=== PATIENT | male | born 1945 | race African-American/Black ===

== ENCOUNTER 2016-09-12 13:49 | Inpatient (IN) | payer OTHER ==
--- NOTE | ~2016-09-12 | CR236 ---
[facility] A Service of [facility] RADIOLOGY TEXT RESULTS PATIENT: BRUCE CHAVEZ LOCATION: [facility] 566-01 : 43 UNIT #: [id number] AGE: [address]: Swathi Rodriguez MD SEX: M ORDER DR: [id number] [facility] [address] [facility]. [place], [place] [address] [id number] I MR#: [id number] #: [id number] NAME: BRUCE CHAVEZ : 1945 SEX: M STUDY DATE/TIME: 09/17/2016 8:49 UNIT: [facility] ROOM: [facility] STUDY DESCRIPTION: CR Small Bowel Sbft W Films Attending Physician: Swathi Rodriguez M.D. Ordering Physician: Raymundo Hernandez M.D. Primary Care Physician: Primary Care Physician No MEDICAL IMAGING REPORT This report is preliminary unless electronic signature is present EXAM Small bowel follow-through with barium. INDICATIONS 71-year-old male with history of abdominal distension, Crohn disease, small bowel obstruction, abdominal pain and anemia. Symptoms since September 12. The fluoro time is zero. 9 flat radiographic images were submitted. Study is correlated with CT of the abdomen and pelvis from 09/12/2016. FINDINGS Tuber Operator radiograph performed demonstrating persistent residual contrast within the rectum and lower sigmoid. There are some mildly dilated loops of small bowel noted, mainly within the right side of the abdomen, and there is also a more dilated loop of small bowel within the mid portion of the abdomen. However, there is no evidence of a small bowel obstruction. By 5.5 hours, much of the contrast has entered into the colon. There is some residual barium still within the small bowel at this time. IMPRESSION 1. There is no evidence of small bowel obstruction. 2. There are some dilated small bowel loops within the right side of the abdomen and within the mid abdomen. Dictated by... Juan Chacon M.D. THIS IS AN ELECTRONICALLY VERIFIED REPORT Juan Chacon M.D. at 09/18/2016 4:43 PM [facility] A Service of [facility] & [facility] RADIOLOGY TEXT RESULTS PATIENT: BRUCE CHAVEZ LOCATION: [facility] 566-01 : 43 UNIT #: [id number] AGE: [address]: Swathi Rodriguez MD SEX: M ORDER DR: Fortunato TD: 09/17/2016 20:19 JOB #: [id number] MEDICAL IMAGING REPORT COPY
--- NOTE | ~2016-09-12 | CO ---
Unit #: [id number] #: [id number] Patient: BRUCE CHAVEZ [id number] [facility]. [place], [place] [address] [id number] I MR#: [id number] NAME: BRUCE CHAVEZ ROOM: 566 Age: 71 Sex: M Admission Date: 09/12/2016 : 1945 Attending Physician: John Heath M.D. Primary Care Physician: [id number] CONSULTATION REPORT REASON FOR CONSULTATION Preoperative evaluation. HISTORY OF PRESENT ILLNESS This is a 71-year-old male who has a history of Crohn disease and was admitted to this facility in May of 2016 and underwent exploratory laparotomy for a small bowel obstruction. He says he has been doing well up until 3-4 weeks ago when he developed abdominal pain. He has been unable to eat. He has also noted pain in his right lower extremity. His right foot and toes begin to turn "black." They thought initially it was because of tight shoes, and he was told to soak his extremities. He then noted that the pain worsened, and his right lower extremity up to his knee became black. He came to the emergency room for evaluation where he was found to have ischemic gangrene to his right lower extremity. CTA of his abdomen and pelvis shows findings consistent with a small bowel obstruction. He also has extensive atherosclerotic involvement of the abdominal aorta. The left common iliac artery is occluded, as well as the previously placed stent to the right superficial femoral artery. He most likely needs surgical intervention. From a cardiac standpoint the patient has no symptoms of angina. He has been unable to walk because of right foot pain for the past 3 weeks. He previously ambulated with a walker and had no symptoms. However, when exercised with physical therapy twice a week, he does complain of shortness of breath. He denies paroxysmal nocturnal dyspnea, orthopnea or leg edema. No dizziness, syncope or near syncope. He gives a history of a myocardial infarction approximately 3-4 years ago at [facility] and underwent testing. He was unsure whether he had a cardiac catheterization or stress test. His risk factors for ischemic heart disease include hypertension, family history of heart disease and nicotine abuse. The patient is on amiodarone at home and gives a history of being on anticoagulation in the past. There are no details available. There are no electrocardiograms at this facility for comparison. PAST MEDICAL HISTORY 1. Questionable myocardial infarction at [facility] 3-4 years ago; no details available. 2. Hypertension. 3. Peripheral vascular disease with history of right superficial femoral artery stent. 4. Spider bite to the right lower extremity status post multiple skin grafts. 5. Crohn disease. 6. Active smoker. Unit #: [id number] #: [id number] Patient: BRUCE CHAVEZ PAST SURGICAL HISTORY 1. Recent exploratory laparotomy. 2. Right leg surgery with multiple skin grafts secondary to recluse spider bite. 3. PEG tube placement that was later removed. SOCIAL HISTORY The patient lives with his sister, who is disabled. He has a nephew who assists him with her care. He ambulates when he can with a walker. He smokes 1-2 cigarettes a day. He denies illicit drug or alcohol use. FAMILY HISTORY Mother possibly had coronary artery disease. She had vascular disease requiring bilateral amputations. Has a sister who has heart problems. ALLERGIES Aspirin (stomach discomfort). HOME MEDICATIONS 1. Protonix 40 mg daily. 2. Norvasc 5 mg daily. 3. Amiodarone 200 mg b.i.d. 4. Imdur 60 mg daily. REVIEW OF SYSTEMS CONSTITUTIONAL: Negative for fever or chills. Reports weakness. HEENT: No headache, hearing or visual changes or difficulty with swallowing. No dizziness. CARDIOVASCULAR: Has no symptoms of angina. Denies palpitations. No paroxysmal nocturnal dyspnea or orthopnea. Denies syncope or near syncope. RESPIRATORY: Has dyspnea on exertion. No cough or hemoptysis. GASTROINTESTINAL: Positive for abdominal pain and some nausea. Denies hematochezia, hematemesis or melena. No bowel movement since Saturday. EXTREMITIES: Positive for right lower extremity pain. PHYSICAL EXAMINATION VITAL SIGNS: Blood pressure 115/55, heart rate 69, temperature 98.3. BMI 14. GENERAL: This is a 71-year-old, very thin, frail male who is in no acute distress. NEUROLOGIC: He is awake, alert and oriented. There are no focal weaknesses. NECK: Trachea is midline. No thyromegaly or lymphadenopathy. No jugular venous distention. HEART: S1, S2 with an S3 gallop or split S2. No rubs or clicks. There is a systolic murmur heard best along the left sternal border. Regular rate and rhythm. LUNGS: Clear to auscultation without rales, rhonchi or wheezes. ABDOMEN: Slightly distended, firm with very diminished bowel sounds. Tender with palpation. EXTREMITIES: With absence pedal pulses. SKIN: Noted for necrotic toes and necrosis up to his knees. DIAGNOSTIC STUDIES LABORATORY STUDIES: White count 11.1, hemoglobin 12.5, hematocrit 38.9, platelet count 350. Sodium 139, potassium 4.6, BUN 28, creatinine 1.2, glucose 124, magnesium 2.8. Unit #: [id number] #: [id number] Patient: BRUCE CHAVEZ IMAGING: CTA of the abdomen and pelvis shows extensive atherosclerotic involvement of the abdominal aorta. With some disease seen in the superior mesenteric artery without stenosis. There is involvement of both the right and left renal arteries. Extensive ulcerated plaque in the infrarenal abdominal aorta. The right superficial femoral artery stent is occluded. The left common iliac artery is occluded. CARDIOVASCULAR STUDIES: Electrocardiogram - Normal sinus rhythm with a rate of 71 beats per minute with left axis deviation. Old inferior infarct with Q waves noted in the inferior leads. There is poor R wave progression V1-V3. Left ventricular hypertrophy. IMPRESSION 1. Abdominal pain with possible small bowel obstruction. 2. 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 3. Possible old inferior wall myocardial infarction. 4. COPD. 5. Crohn disease of the colon. 6. Hypertension. 7. History of right superficial femoral artery stent. PLAN 1. Cardiology was consulted for preoperative evaluation. Because of the patient's extensive vascular disease, he will need a cardiac catheterization to determine his coronary anatomy prior to peripheral vascular surgery. This has been discussed with the patient, and he is agreeable. Also discussed with his sister and son via phone. 2. Will start the patient on IV fluids. 3. The patient will need statin. Was started on high-intensity statin. Lipid profile will be obtained. 4. Obtain two-D echocardiogram to evaluate left ventricular systolic function and for valvular heart disease. 5. Obtain records from [facility] if possible. Will follow the patient with you. Thank you for allowing us to assist with this patient's care. Dictated by... Rony Stover A.P.R.N. for Sid Moon M.D. CHUNG/dickson TD: 09/14/2016 07:43 JOB #: [id number] CONSULTATION REPORT X Rony Stover APRN CONSULTATION REPORT
--- NOTE | ~2016-09-12 | CR12 ---
[facility] A Service of [facility] & [facility] RADIOLOGY TEXT RESULTS PATIENT: BRUCE CHAVEZ LOCATION: [facility] 549-01 : 43 UNIT #: [id number] AGE: [address]: Swathi Rodriguez MD SEX: M ORDER DR: [id number] [place], [place] [address] [id number] I MR#: [id number] Acc #: [id number] NAME: BRUCE CHAVEZ : 1945 SEX: M STUDY DATE/TIME: 09/18/2016 13:55 UNIT: [facility] ROOM: [facility] STUDY DESCRIPTION: CR Angio Extrem Uni SI Attending Physician: Swathi Rodriguez M.D. Ordering Physician: Tim Flores M.D. Primary Care Physician: Primary Care Physician No MEDICAL IMAGING REPORT This report is preliminary unless electronic signature is present EXAM CR angio extremity uni SI INDICATION Peripheral vascular disease FINDINGS Multiple images from a lower extremity angiogram were submitted for review. Please refer to the vascular surgery report for details of patient's vascular disease. Fluoroscopic time 46 seconds. Dictated by... Alli Pérez M.D. THIS IS AN ELECTRONICALLY VERIFIED REPORT Alli Pérez M.D. at 09/19/2016 12:13 PM Juni TD: 09/19/2016 09:07 JOB #: [id number] MEDICAL IMAGING REPORT COPY
--- NOTE | ~2016-09-12 | HP ---
Unit #: [id number] #: [id number] Patient: BRUCE CHAVEZ [id number] [place], [place] [address] [id number] MR#: [id number] NAME: BRUCE CHAVEZ ROOM: Age: 71 Sex: M Admission Date: 09/12/2016 : 1945 Attending Physician: Rosendo Fan M.D. Primary Care Physician: No Primary Care Physician HISTORY AND PHYSICAL CHIEF COMPLAINT Right foot pain and abdominal pain. HISTORY OF PRESENT ILLNESS The patient is a 71-year-old, pleasant -[place] male with a history of a Crohn disease and recurrent small bowel obstruction and status post exploratory laparotomy, segmental small bowel resection in May of 2016, presented to the emergency room complaining of the abdominal pain. The patient stated the patient has been having abdominal pain for the three days associated with the nausea and vomiting. The patient's last bowel movement was two days ago. The patient is well known to the service and had the repeat CT scan that showed the patient had a small bowel obstruction in the ileum and with the same transition point concerning for the stricture. The patient also complains of the right foot pain that has been going on for the last one month. The patient stated the patient was walking a month ago and noted the toes turned black and he is unable to walk on the leg because of the pain. The patient had a CT angiogram that showed a critical stenosis of the iliofemoral vein and patient has been started on the heparin. The vascular and LSA consult has been called by the ER physician and spoke to Dr. Rubi and Dr. Flores to follow up the patient. The patient denies any fever, chills. The patient is being admitted for the above reasons. PAST MEDICAL HISTORY History of coronary disease, myocardial ischemia, hypertension and history of severe dysphagia and poor oral intake, status post PEG tube and then later removal. PAST SURGICAL HISTORY PEG tube placement, right leg surgery and the exploratory laparotomy and the small bowel resection. SOCIAL HISTORY He smokes one cigarette per day and no alcohol or any illicit drug abuse. FAMILY HISTORY Positive for hypertension. ALLERGIES Aspirin. HOME MEDICATIONS He takes amiodarone, metoprolol, [place] and amlodipine. Unit #: [id number] #: [id number] Patient: BRUCE CHAVEZ REVIEW OF SYMPTOMS Fourteen-point review of symptoms performed and only pertinent positive findings are described above, remaining are negative. PHYSICAL EXAMINATION GENERAL APPEARANCE: On examination the patient is lying on a bed not in acute distress. VITAL SIGNS: Temperature 96.9, pulse 80, respiratory rate 16, blood pressure 139/72, sating 98% at room air. HEENT: Head atraumatic, normocephalic. Pupils equal, round and reacting to light and accommodation. Extraocular movements are intact. NECK: Supple. No JVD. LUNGS: Clear to auscultation bilaterally. No rhonchi. No wheezing. HEART: Regular rate and rhythm. ABDOMEN: Soft, positive for the hypertympanic bowel sound and tenderness in the right lower and left lower quadrant. EXTREMITIES: Patient had a chronic venous stasis and dry gangrene of the right foot toes with ischemia. NEUROLOGIC: Awake, alert and oriented. No gross focal motor deficit. DIAGNOSTIC STUDIES LABORATORY DATA: Glucose 103, BUN 29, creatinine 1.1, sodium 144, potassium 4.4, chloride 108, bicarbonate 26, calcium 9.1, phosphorus 2.5, magnesium 2, AST 36, ALT 30, alkaline phosphatase 71, amylase 14, lipase 10, INR is 1.1, WBC 11. 2, hemoglobin 13.6, hematocrit 41.9, platelets 396, neutrophils 82.5 and UA shows trace leukocyte esterase. IMAGING: CT of the abdomen and pelvis with angiogram shows the small bowel obstruction at the same transition point and the critical stenosis of the iliofemoral artery. ASSESSMENT 1. The recurrent small bowel obstruction. 2. Dry gangrenous toes. 3. Peripheral arterial disease with the stenosis. 4. Right foot ischemia. PLAN 1. Plan is to admit the patient to the inpatient with the telemetry, 2. Patient has been already consulted with LSA for bowel rest, IV fluids and pain medications and vascular consult has been placed for the critical stenosis and right foot ischemia. 3. Continue with the heparin drip and supportive care. 4. Repeat the CBC, BMP in the morning. 5. Further recommendations will follow. Dictated by Kevin Lagunas/edwardo TD: 09/12/2016 19:24 JOB #: [id number] Unit #: [id number] #: [id number] Patient: BRUCE CHAVEZ HISTORY AND PHYSICAL X X HISTORY AND PHYSICAL
--- NOTE | ~2016-09-12 | FU ---
[facility] Nutrition Therapy DATE: 09/20/16 Patient: BRUCE SCOTT Physician: SEBASTIAN Address: [address] [place] [address] STREET Room/Bed: [address] [place] [address], Zip: [place] [address] Admit Date: 09/12/16 Date of : 43 Height: 6 0 Weight: 140 63.9 NUTRITION MONITORING/FOLLOW-UP: Reason: Nutrition follow up Anthropometrics: Adm wt: 54.5 kg Wt 09/20: 63.9 kg Please note the source of today's weight is not noted, and is likely inaccurate based on RD observation of the pt, and based on his admission weight Labs: Gluc 139 Ca++ 7.9 Alb 2.4 Meds: Miralax, coumadin, protonix, solu-medrol, colace, KCl, lipitor, lopressor, zofran I&O's: 2686/1080, last BM 09/17 (per pt report) Skin: Reviewed. No changes noted. Edema: RLE 1+ Diet: Regular Assessment: Chart reviewed, events noted. RD spoke with the pt at bedside. Pt reports improvement in appetite, and states that he typically consumes all of his meals. RD observed the pt's lunch tray, which he did consume 100% of. Pt requested Ensure supplements, as he received these one time previously. RD will order Ensure TID. Pt also reports that his last BM was Saturday (09/17) despite bowel regimen. Pt had KUB today, awaiting results. SBO improved/ resolving per MD note. RD encouraged continued adequate protein-calorie intake with Ensure TID. Pt denied having any nutrition- related questions at this time. Nutrition diagnosis remains active with some improvement. Dx: Severe PCM RT chronic illness AEB <50% energy intake for > 1 month, suspected 20% weight loss in ~ 6 months, underweight status- ACTIVE Intervention: 1. Regular diet 2. Ensure TID Monitoring, Evaluation and Goals: GOALS IN PROGRESS 1. Oral intake; tolerate >50-75% meals and supplements 2. Gradual weight gain towards healthy BMI range 3. Promote regular bowel movements [facility] Nutrition Therapy DATE: 09/20/16 Patient: BRUCE CHAVEZ Physician: SEBASTIAN Address: [address] [place] [address] STREET Room/Bed: [address] [place] [address] State, Zip: [place] [address] Admit Date: 09/12/16 Date of : 43 Height: 6 0 Weight: 140 63.9 4. Skin; promote healing, prevent breakdown Recommendations: 1. Continue regular diet as tolerated. 2. Ensure [place] TID with meals for supplemental nutrition. 3. Appreciate staff and family encouraging adequate protein-energy intake as needed. Status: Pt is at mild-moderate nutritional risk with improvement in goals. Respectfully, RACHAEL MCNAIR RD, LD [facility] cc: client file
--- NOTE | ~2016-09-12 | US146 ---
[facility] A Service of [facility] & [facility] RADIOLOGY TEXT RESULTS PATIENT: BRUCE CHAVEZ LOCATION: [facility] 566-01 : 43 UNIT #: [id number] AGE: [address]: Swathi Rodriguez MD SEX: M ORDER DR: [id number] [facility] [address] [place], [place] [address] [id number] I MR#: [id number] #: [id number] NAME: BRUCE CHAVEZ : 1945 SEX: M STUDY DATE/TIME: 09/13/2016 16:43 UNIT: [facility] ROOM: [facility] STUDY DESCRIPTION: US Vein Map Hemodial Access Attending Physician: Swathi Rodriguez M.D. Ordering Physician: John Heath M.D. Primary Care Physician: No Primary Care Physician MEDICAL IMAGING REPORT This report is preliminary unless electronic signature is present EXAM Bilateral lower extremity vein mapping, vein to use for conduit. CLINICAL HISTORY Hypertension, hyperlipidemia, DE, vein used for conduit. FINDINGS The great saphenous vein has the following size measurements on the right in mm: upper proximal 3.6, mid 1.2, distal 2.7, at knee 1.9, lower proximal 0.5, mid 0.9, distal 2.3. The right small saphenous vein was not imaged. The left saphenous vein has the following size measurements in mm: upper proximal 2.6, mid 1.5, distal 2.5, at knee 2.1, lower proximal 0.7, mid 0.8, distal 1.1. The left small saphenous vein was not visualized. IMPRESSION 1. The right and left great saphenous veins do not appear to be of adequate size for a bypass conduit. 2. The right and left small saphenous veins were not examined. Dictated by... Joaquín Kulkarni M.D. THIS IS AN ELECTRONICALLY VERIFIED REPORT Joaquín Kulkarni M.D. at 09/16/2016 1:40 PM AC/pc TD: 09/15/2016 06:53 JOB #: [id number] [facility] A Service of [facility] & [facility] RADIOLOGY TEXT RESULTS PATIENT: BRUCE CHAVEZ LOCATION: [facility] 566-01 : 43 UNIT #: [id number] AGE: [address]: Swathi Rodriguez MD SEX: M ORDER DR: MEDICAL IMAGING REPORT COPY
--- NOTE | ~2016-09-12 | MAL ---
[facility] Nutrition Therapy DATE: 09/13/16 Patient: BRUCE CHAVEZ Physician: SEBASTIAN Address: [address] [place] [address] Room/Bed: [address] [place] [address], Zip: [place] [address] Admit Date: 09/12/16 Date of : 43 Height: 6 0 Weight: 120 54.5 PHYSICAL MALNUTRITION ASSESSMENT Energy Intake, Chronic Illness Severely reduced: </=50% needs for >/=1 month Weight Loss, Chronic Illness Severe: >10% past 6 months Weight Loss, Comment: Suspected loss of 20% in past 6 months Physical Findings Body Fat and Muscle Mass Moderate: (suggested) some loss of subqutaneous fat and/or muscle mass Physical Findings Functional Capacity Moderate: (suggested) reduced functional capacity Malnutrition Survey Results: Malnutrition identified Malnutrition Etiology Summary: Chronic illness severe Malnutrition Survey Comment: See today's assessment for full details and recs Respectfully, Lashon Ortiz RD, ROVERTO [facility] Nutrition[facility] Services [facility] cc: client file
--- NOTE | ~2016-09-12 | CT12 ---
[facility] A Service of [facility] & [facility] RADIOLOGY TEXT RESULTS PATIENT: BRUCE CHAVEZ LOCATION: [facility] 566-01 : 43 UNIT #: [id number] AGE: [address]: John Heath MD SEX: M ORDER DR: [id number] [facility] [address] [place], [place] [address] [id number] I MR#: [id number] #: [id number] NAME: BRUCE CHAVEZ : 1945 SEX: M STUDY DATE/TIME: 09/12/2016 16:01 UNIT: [facility] ROOM: [facility] STUDY DESCRIPTION: CT Angio Abd Pelv Runoff Attending Physician: Eugenio Joseph M.D. Ordering Physician: Rosendo Fan M.D. Primary Care Physician: Primary Care Physician No MEDICAL IMAGING REPORT This report is preliminary unless electronic signature is present EXAM CT angiogram of the abdomen and pelvis with bilateral lower extremity runoff, 09/12/2016 INDICATION Right fourth toe discoloration and pain for [address] images were obtained from the dome of the diaphragm through both lower extremities following administration of intravenous contrast material. Following this 3-D reformatted images were obtained. This CT exam was performed with one or more of the following radiation dose reduction techniques: automatic exposure control, adjustment of mA and/or kV according to patient size, and iterative reconstruction. FINDINGS Images through the lung bases demonstrate background emphysematous changes and some bibasilar fibrotic change. There is probably also some superimposed atelectasis. This patient has a thick-walled distal esophagus. This is a new finding when compared to the prior study. The possibility that this could reflect some esophagitis is not excluded. Proximal small bowel appears within normal limits. Patient has some high-density material identified within the gallbladder, which I suspect could reflect some stones or sludge. No focal hepatic lesions are identified. The adrenal glands appear normal as is the spleen. The pancreas is mildly atrophic. There are areas of cortical thinning identified within both kidneys, likely reflecting sequelae of prior insults. This is more significant on the left. This patient is noted to have multiple dilated and fluid-filled loops of STS. [facility] A Service of [facility] RADIOLOGY TEXT RESULTS PATIENT: BRUCE CHAVEZ LOCATION: [facility] 566-01 : 43 UNIT #: [id number] AGE: [address]: John Heath MD SEX: M ORDER DR: small bowel with relative decompression of the colon. These findings are characteristic of small bowel obstruction. I think that the transition point is within the distal small bowel in a similar place as on prior exam from May 10, 2016. This patient has a history of Crohn disease and again, I think involves the distal small bowel and may reflect an area of stricturing in this patient with a history of Crohn disease. I do not see any pneumatosis or free air although the patient is noted to have some free fluid within the pelvis and within the abdomen. Urinary bladder is unremarkable. There is some dystrophic calcification seen within the prostate gland. This patient has extensive atherosclerotic involvement of the abdominal aorta. There is probably some mild narrowing involving the origin of the celiac axis. Some additional disease is seen within the superior mesenteric artery without definite flow-limiting stenosis. Patient has 2 right renal arteries and a single left renal artery, all of which does demonstrate atherosclerotic involvement. Significant involvement is seen within the inferior right renal artery. Vessels do remain patent however. The patient's inferior mesenteric artery is occluded. Extensive ulcerated plaque is seen within the infrarenal abdominal aorta. Left common iliac artery is occluded. This was also present on a prior study from 05/10/2016. There is extensive plaque seen within the right common iliac artery resulting in multifocal disease. Patient's right internal iliac artery is occluded at its origin although there is some distal reconstitution. There is mild multifocal disease of the right external iliac artery. Patient's left internal iliac artery is occluded at the origin as is the left external iliac artery although there is reconstitution of the patient's left common femoral artery. Right profunda femoris artery is patent. Patient has a right superficial femoral artery stent which is occluded. This was also present on the prior study from May 2016. This patient has reconstitution of the above-knee popliteal artery although there is severe narrowing at its area of reconstitution. It does show multifocal disease but remains patent. Right anterior tibial artery I think is continuous to the foot. Right peroneal artery shows only intermittent opacification and it certainly does appear to be occluded distally. Right posterior tibial artery has a branch which swings anterior to supply the peroneal distribution and immediately distal to this the right posterior tibial artery appears to occlude briefly although I think there may be some distal reconstitution. The patient's left common femoral artery is diminutive and diseased. Left profunda femoris artery is patent. Left superficial femoral artery shows multifocal disease but I think does remain patent. Left popliteal artery also shows multifocal disease but remains patent. Left anterior tibial artery is the dominant runoff to the left foot. Left peroneal artery also appears to be continuous to the foot. Left posterior tibial artery I think shows only intermittent opacification and I think is probably distally occluded. [facility] A Service of [facility] RADIOLOGY TEXT RESULTS PATIENT: BRUCE CHAVEZ LOCATION: [facility] 566-01 : 43 UNIT #: [id number] AGE: [address]: John Heath MD SEX: M ORDER DR: Extensive postsurgical changes are seen within this patient's right thigh. He reportedly has a history of prior brown recluse spider bite and has required multiple skin grafts. Review of bony windows does not demonstrate any aggressive osseous abnormalities. There is osteopenia noted, particularly on the right. IMPRESSION 1. Findings are characteristic of small bowel obstruction, presumed transition point is located within the ileum. The location I think is very similar to a prior exam from May 10, 2016 when this patient was noted to have a strictured area of small bowel with wall enhancement which was suspicious for active Crohn disease. While I do not see any pneumatosis or free air on today's study, the patient is noted to have free fluid within the abdomen and pelvis. 2. Extensive atherosclerotic involvement of the abdominal aorta. This extends into the iliac vessels. Patient's left common iliac artery is occluded as is the left external iliac artery. There is occlusion of the left internal iliac artery at its origin but it does have some distal reconstitution. 3. Patient's right internal iliac artery is occluded at its origin although there is distal reconstitution. 4. This patient has a right superficial femoral artery stent. The stent is occluded. There is reconstitution of the right popliteal artery and I think the patient's right dorsalis pedis artery is continuous to the foot. The right peroneal artery shows only intermittent opacification and the right posterior tibial artery has a branch which swings anteriorly to supply the peroneal distribution. Immediately distal to this it appears briefly occluded, although I think there is some reconstitution on the foot. 5. This patient has multifocal disease involving the left superficial femoral and popliteal arteries but both remain patent. The patient's anterior tibial and peroneal vessels are continuous to the foot with only intermittent calcification identified within the left posterior tibial artery. 6. Suspected gallbladder stones or sludge. 7. Multiple areas of cortical thinning identified within both kidneys, likely reflecting sequelae of prior insults, 8. Extensive postoperative change is seen within the right lower extremity. Patient reportedly has had a prior history of brown recluse spider bite with extensive debridement and skin grafting. Please see the body of the report for any other additional incidental findings. Dictated by... Fatimah Swain M.D. THIS IS AN ELECTRONICALLY VERIFIED REPORT [facility] A Service of [facility] RADIOLOGY TEXT RESULTS PATIENT: BRUCE CHAVEZ LOCATION: [facility] 566-01 : 43 UNIT #: [id number] AGE: [address]: John Heath MD SEX: M ORDER DR: Fatimah Swain M.D. at 09/13/2016 4:19 PM AFF/ljd TD: 09/13/2016 00:55 JOB #: [id number] MEDICAL IMAGING REPORT COPY
--- NOTE | ~2016-09-12 | CR4 ---
[facility] A Service of [facility] & [facility] RADIOLOGY TEXT RESULTS PATIENT: BRUCE CHAVEZ LOCATION: B 549-01 : 43 UNIT #: [id number] AGE: [address]: Swathi Rodriguez MD SEX: M ORDER DR: [id number] [facility] [address] [place], [place] [address] [id number] I MR#: [id number] Acc #: [id number] NAME: BRUCE CHAVEZ : 1945 SEX: M STUDY DATE/TIME: 09/20/2016 12:35 UNIT: [facility] ROOM: [facility] STUDY DESCRIPTION: CR Abdomen Flat Upright or Dec Attending Physician: Swathi Rodriguez M.D. Ordering Physician: Swathi Rodriguez M.D. Primary Care Physician: No Primary Care Physician MEDICAL IMAGING REPORT This report is preliminary unless electronic signature is present EXAM Flat and upright abdomen, INDICATION 71-year-old male with followup small bowel obstruction. COMPARISON STUDIES Compared with 09/14/2016 FINDINGS There is barium in the colon. No free air on upright view. No dilated loops of small bowel. IMPRESSION No dilated loops of small bowel. Persistent barium in the colon. Dictated by... Juan Chacon M.D. THIS IS AN ELECTRONICALLY VERIFIED REPORT Juan hCacon M.D. at 09/24/2016 8:37 AM BASIA/mickey TD: 09/20/2016 17:12 JOB #: [id number] MEDICAL IMAGING REPORT COPY
--- NOTE | ~2016-09-12 | CR4 ---
[facility] A Service of [facility] & [facility] RADIOLOGY TEXT RESULTS PATIENT: BRUCE CHAVEZ [facility]ATION: [facility] 566-01 : 43 UNIT #: [id number] AGE: [address]: Swathi oRdriguez MD SEX: M ORDER DR: [id number] [facility] [address] [place], [place] [address] [id number] I MR#: [id number] Acc #: [id number] NAME: BRUCE CHAVEZ : 1945 SEX: M STUDY DATE/TIME: 09/14/2016 09 UNIT: [facility] ROOM: [facility] STUDY DESCRIPTION: CR Abdomen Flat Upright or Dec Attending Physician: John Heath M.D. Ordering Physician: Onofre Rubi III, M.D. Primary Care Physician: No Primary Care Physician MEDICAL IMAGING REPORT This report is preliminary unless electronic signature is present EXAM Abdomen, supine and upright, 09/14/2016, 0945 hours. CLINICAL HISTORY 71-year-old man complaining of abdominal pain for 1 week. History of prior small bowel obstruction. COMPARISON CT abdomen, 09/12/2016. FINDINGS Supine and upright views of the abdomen demonstrate increased gas in small bowel loops which are not significantly dilated in the central abdomen. There is a slightly dilated loop in the right lower quadrant measuring 4.1 cm with suggested wall thickening. The oral contrast material which was in the proximal small bowel on the CT 09/12/2016 where the patient had a small bowel obstruction has passed through the colon to the rectum. Findings would suggest interval improvement or a partial small bowel obstruction. IMPRESSION There is a dilated loop of small bowel remaining in the right lower quadrant up to 4.1 cm with suggested mild wall thickening. There are other nondilated gas-filled loops of small bowel present suggesting improvement. Additionally, the oral contrast material which was in the stomach and proximal small bowel on the CT demonstrating obstruction on 09/12/2016 now opacifies the colon and the rectum suggesting that the obstruction is improving or partial or intermittent. No free air is seen. Dictated by... Melody Gloria M.D. [facility] A Service of [facility] & [facility] RADIOLOGY TEXT RESULTS PATIENT: BRUCE CHAVEZ LOCATION: [facility] 566-01 : 43 UNIT #: [id number] AGE: [address]: Swathi Rodriguez MD SEX: M ORDER DR: THIS IS AN ELECTRONICALLY VERIFIED REPORT Melody Gloria M.D. at 09/17/2016 9:17 AM Fabrice TD: 09/14/2016 14:49 JOB #: [id number] MEDICAL IMAGING REPORT COPY
--- NOTE | ~2016-09-12 | US136 ---
[facility] A Service of [facility] RADIOLOGY TEXT RESULTS PATIENT: BRUCE CHAVEZ LOCATION: [facility] 566-01 : 43 UNIT #: [id number] AGE: [address]: Swathi Rodriguez MD SEX: M ORDER DR: [id number] [facility] [address] [place], [place] [address] [id number] I MR#: [id number] Acc #: [id number] NAME: BRUCE CHAVEZ : 1945 SEX: M STUDY DATE/TIME: 09/13/2016 11:37 UNIT: [facility] ROOM: [facility] STUDY DESCRIPTION: US U/L Ext Art Study Ltd Bilat Attending Physician: Swathi Rodriguez M.D. Ordering Physician: John Heath M.D. Primary Care Physician: Primary Care Physician No MEDICAL IMAGING REPORT This report is preliminary unless electronic signature is present EXAM Ankle-brachial indices. HISTORY Right leg claudication, rest pain, dependent rubor, left atrophic nails, left dependent rubor. FINDINGS The right brachial artery pressure is not obtained because there is an IV in the right arm. The right dorsalis pedis pressure could not be obtained due to noncompressibility. The right posterior tibial pressure could not be obtained due to noncompressibility. The right digital pressure is 142 with toe index 1.25. The left brachial artery pressure is 114. The left dorsalis pedis pressure could not be obtained due to vessel noncompressibility. The left posterior tibial could not be found. The left digital pressure is 144, with toe index 1.26. The right posterior tibial and dorsalis pedis waveforms are monophasic. The left dorsalis pedis pressures have higher amplitude than the right. However, the digital pulse volume recordings of the left great toe are dampened in comparison to the right. IMPRESSION 1. OPHELIA could not be obtained due to vessel noncompressibility. 2. Digital toe pressures and indices are within normal limits. 3. Waveforms may suggest some disease. Segmental waveforms are recommended for further evaluation if desired. Dictated by... Joaquín Kulkarni M.D. [facility] A Service of [facility] & [facility] RADIOLOGY TEXT RESULTS PATIENT: BRUCE CHAVEZ LOCATION: [facility] 566-01 : 43 UNIT #: [id number] AGE: [address]: Swathi Rodriguez MD SEX: M ORDER DR: THIS IS AN ELECTRONICALLY VERIFIED REPORT Joaquín Kulkarni M.D. at 09/16/2016 1:40 PM Oneil TD: 09/15/2016 12:21 JOB #: [id number] MEDICAL IMAGING REPORT COPY
--- NOTE | ~2016-09-12 | A ---
[facility] Nutrition Therapy DATE: 09/13/16 Patient: BRUCE CHAVEZ Physician: SEBASTIAN Address: [address] [place] [address] Room/Bed: [address] [place] [address], Zip: [place] [address] Admit Date: 09/12/16 Date of : 43 Height: 6 0 Weight: 120 54.5 NUTRITIONAL ASSESSMENT: REASON: Low BMI + 2 points malnutrition risk score re: unintentional weight loss, coughing/multiple swallows Admitting Dx: 71 y/o male admitted with abdominal pain and N/V PMH: Recurrent SBO, dysphagia s/p PEG and removal, poor PO and need for nutrition support, Crohn's disease, Hep C, RI, HTN, CAD, small bowel resection (May 2016) Anthropometrics: Ht: 72", Wt: 109 lbs vs 120 lbs, BMI: 14.8 vs 16.3, IBW: 178 lbs Labs: Glucose 124, BUN 28 Meds: Heparin, Zofran prn, PPI I/O & Bowel function: LBM /, constipation noted, hx of SB resection Skin Integrity: Gangrene/necrotic toes R foot, skin graft scars, dry/flaky skin all over Estimated Nutrition Needs: Increased needs due to clinical condition, underweight status Assessment: Chart reviewed, events noted. See admitting dx and especially PMH as stated above. CT scan comfirmed SBO and PAD with right foot ischemia. RD previously assessed this patient on 05/11/16 due to low BMI and 3 points malnutrition risk score for 10-15 lb weight loss, patient weighed 138-143 lbs during that admission. RD reviewed low and high fiber foods with list at that time due to hx of Crohn's disease. During this admission the patient remains clinically underweight (conflicting weights: 109 vs 120 lbs, appears to be more towards 120 lbs), reported 5 lb weight loss during malnutrition risk assessment and also answered yes to coughing and multiple swallowing with PO intake. Suspect total weight loss of approx. 30 lbs in an undefined time frame (likely around 6 months), has hx of poor oral intake, PEG, TPN for nutrition. The patient is currently NPO to allow for bowel rest. Due to his poor oral intake and weight loss the patient qualifies for severe protein calorie malnutrition. See recs below, will follow closely for tolerance of diet advancement and will order supplements once appropriate. Dx: Malnutrition r/t chronic illness AEB < 50% energy intake for > 1 month, suspected 20% weight loss in approx. 6 months (severe loss), underweight status. Intervention: Diet advancement as tolerated, ONS, NEMATOLOGY TEACHER Monitoring, Evaluation and Goals: [facility] Nutrition Therapy DATE: 09/13/16 Patient: BRUCE CHAVEZ Physician: SEBASTIAN Address: [address] [place] [address] Room/Bed: [address] [place] [address], Zip: [place] [address] Admit Date: 09/12/16 Date of : 43 Height: 6 0 Weight: 120 54.5 1. Tolerance of diet advancement per NEMATOLOGY TEACHER with minimal c/o N/V/D. 2. Gradual weight gain towards a healthy BMI range. 3. Promote regular BM's. 4. Skin; promote healing, prevent breakdown. Monitor: Per protocol, criteria to determine if above goals met Recommendations: 1. Suggest NEMATOLOGY TEACHER eval once appropriate due to hx of dysphagia, coughing and multiple swallows with PO intake. Advance to clear liquid diet once able, texture per NEMATOLOGY TEACHER recs. If the patient tolerates a liquid diet advance to low fiber diet as able. RD will order the appropriate oral nutrition supplements to increase oral kcal/protein intake once diet advances. 2. Please weigh q 3 days for monitoring purposes, as the patient is underweight. 3. Due to the diagnosis of severe protein calorie malnutrition by RD I suggest placement of the appropriate feeding tube to supplement PO diet and meet nutrient needs to prevent further weight decline. If tube is placed start nocturnal enteral feeds once appropriate: Vital 1.5 @ 85 ml x 12 hours (8p-8a) to provide approx. 75% of kcal needs and 90% of protein needs (would provide 1530 kcals, 69 g protein and 775 ml water). I do not think the patient will be able to meet his increased kcal/protein needs with PO intake alone. 4. If the patient's PO diet is unable to be advanced beyond liquids and he is not a candidate for enteral nutrition please start TPN with 25% dextrose, 5% amino acid solution. Recs are as follows: Goal rate 55 ml/hr Will provide: -1122 dextrose kcals (GUR = 4.2) -66 g protein (1.2 g/kg) -Cycle 20% 250 ml lipids daily to prevent fatty acid deficiency and provide an additional 500 kcals from lipids -1886 total kcals *Note the above TPN regimen does not quite meet the patient's estimated kcal/protein needs, but a higher rate would result in a potentially unsafe GUR. The patient would need some extra kcals/protein from oral nutrition supplements if able* If TPN is started begin at a low rate of 20 ml/hr and increase to goal rate over 3-4 days with PO diet as tolerated per MD. Monitor for s/s of refeeding syndrome, as the patient is at high risk. Closely monitor glucose and triglycerides, replete lytes to [facility] Nutrition Therapy DATE: 09/13/16 Patient: BRUCE CHAVEZ Physician: SEBASTIAN Address: [address] [place] [address] Room/Bed: [address] [place] [address], Zip: [place] [address] Admit Date: 09/12/16 Date of : 43 Height: 6 0 Weight: [address] will follow hospital course Moderate-severe nutrition risk Respectfully, Lashon Ortiz RD, LD [facility] cc: client file
--- NOTE | ~2016-09-12 | OR ---
Unit #: [id number] #: [id number] Patient: BRUCE CHAVEZ [id number] [address] [place], [place] [address] [id number] I MR#: [id number] NAME: BRUCE CHAVEZ ROOM: 549 Date of Procedure: 09/18/2016 Admission Date: 09/12/2016 Surgeon: Tim Flores M.D. : 1945 Attending Physician: Swathi Rodriguez M.D. OPERATIVE REPORT POSTOPERATIVE DIAGNOSES Right lower extremity ischemia, severe rest pain, and gangrene of toes. POSTOPERATIVE DIAGNOSIS Right lower extremity ischemia, severe rest pain, and gangrene of toes. PROCEDURES PERFORMED 1. Right femoral to below-knee popliteal artery bypass with 6 mm Distaflo graft. 2. Intraoperative arteriogram. ORCHARD PRUNER Santosh Huitron. ANESTHESIA General. INDICATIONS FOR PROCEDURE This is a patient with severe rest pain of the right lower extremity with gangrene of the toes, who was identified with severe peripheral vascular disease. He has significant soft tissue loss from previous brown recluse spider bite and had multiple skin grafts over his distal thighs and the legs. He was recommended lower extremity bypass and options, risks, and benefits including the possibilities of bleeding, infection, thrombosis of the graft, need for future interventions, amputation of the leg, NE, pneumonia etc., were discussed and he agreed to proceed. DESCRIPTION OF PROCEDURE The patient was brought to the operating room and general anesthesia was administered. The right lower extremity was cleaned, prepped, and draped in the usual sterile fashion. There was a scar in the groin over previous saphenous vein harvest and the incision was made through this, and the common femoral artery below the inguinal ligament was dissected over 3 to 4 cm and it was found to be moderately diseased, but soft. There was a clips noted, but no bypass was noted here. Next, the incision was made in the medial side of the upper calf and the popliteal fossa was entered. There was significant scar tissue and no muscles were evident as all the muscles appeared to be fibrotic were excised. The popliteal vessels identified and the artery was dissected from the surrounding vein. A 23-gauge butterfly was used and intraoperative arteriogram was obtained, which showed 2-vessel runoff [id number] in the peroneal and anterior tibial arteries. Next, a tunnel was made anatomically behind the knee to Unit #: [id number] #: [id number] Patient: BRUCE CHAVEZ the groin and a 6 mm Distaflo graft with a Mini-Cuff was passed through the tunnel. The patient was given 6000 units of heparin and after sufficient circulation time, the below-knee popliteal artery was clamped with Bulldog clamps proximally and distally. A longitudinal arteriotomy was made. The Distaflo graft was then anastomosed to the below-knee popliteal artery with 6-0 Prolene in a continuous fashion. The graft was flushed with saline and the vessels were back flushed prior to completion of the anastomosis. Anastomosis was completed satisfactorily. Next, the graft was straightened with the knee in a straight position. The common femoral artery was clamped proximally and distally and arteriotomy was made. The graft was cut to length, spatulated, and end-to-side anastomosis was performed with 6-0 Prolene in a continuous fashion. Clamps were released and there was a good pulse in the popliteal artery beyond the anastomosis. Completion arteriogram was obtained with 23-gauge butterfly in the distal graft, which showed widely patent distal anastomosis. The patient was given 20 mg of protamine to reverse the heparin partially. Floseal was used for hemostasis. The wounds were closed in layers with 3-0 Vicryl and 4-0 Monocryl. The patient was transported to the recovery room in stable condition with excellent signals in the posterior tibial and anterior tibial arteries. FINDINGS The intraoperative arteriogram reveals 2-vessel runoff in the anterior tibial and the peroneal arteries. The distal anastomosis is widely patent post-anastomosis. Dictated by... Tim Flores M.D. SA/florecita TD: 09/19/2016 05:50 JOB #: [id number] OPERATIVE REPORT X Tim Flores MD PROCEDURE OPERATIVE NOTE
--- NOTE | ~2016-09-12 | EKG ---
PATIENT: BRUCE CHAVEZ UNIT #: [id number] Ventricular Rate: 71 BPM Atrial Rate: 71 BPM P-R Interval: 264 ms QRS Duration: 108 ms Q-T Interval: 422 ms QTC Calculation(Bezet): 458 ms P [place]: 75 degrees Calculated R [place]: -47 degrees Calculated T [place]: 111 degrees Diagnosis Line: Sinus rhythm with 1st degree A-V block Diagnosis Line: Left axis deviation Diagnosis Line: Left ventricular hypertrophy with repolarization Diagnosis Line: abnormality Diagnosis Line: Cannot rule out Septal infarct , age undetermined Diagnosis Line: Inferior infarct , age undetermined Diagnosis Line: Abnormal ECG Diagnosis Line: No previous ECGs available Diagnosis Line: Confirmed by LEWIS WILKINS MD ([id number]) on 09/14/2016 Diagnosis Line: 6:25:18 PM INTERPRETING MD: CLAUDETTE RYAN
--- NOTE | ~2016-09-12 | CR72 ---
[facility] A Service of [facility] & [facility] RADIOLOGY TEXT RESULTS PATIENT: BRUCE CHAVEZ LOCATION: [facility] 566-01 : 43 UNIT #: [id number] AGE: [address]: Swathi Rodriguez MD SEX: M ORDER DR: [id number] [facility] [address] [place], [place] [address] [id number] MR#: [id number] Acc #: [id number] NAME: BRUCE CHAVEZ : 1945 SEX: M STUDY DATE/TIME: 09/18/2016 6:23 UNIT: [facility] ROOM: [facility] STUDY DESCRIPTION: CR Chest Single View Portable Attending Physician: Swathi Rodriguez M.D. Ordering Physician: Tutu Ramírez M.D. Primary Care Physician: Primary Care Physician No MEDICAL IMAGING REPORT This report is preliminary unless electronic signature is present EXAM AP portable chest, 09/18 COMPARISON 04/20/2016 HISTORY Preop small bowel obstruction. Gangrene right foot. Symptoms now for 6 days. FINDINGS An AP view is obtained. Cardiac size is borderline enlarged. Bilateral pulmonary parenchymal infiltrates are present, predominantly interstitial in character. These are greater on the left than right. Right-sided PICC line terminates in the SVC. CONCLUSION Bilateral interstitial infiltrates, left greater than right, with an increase in infiltrate in the left lung compared with the previous study of 2016. Dictated by... Dimitri Medellin M.D. THIS IS AN ELECTRONICALLY VERIFIED REPORT Dimitri Medellin M.D. at 09/18/2016 3:37 PM Patric TD: 09/18/2016 12:17 JOB #: [id number] MEDICAL IMAGING REPORT COPY
--- NOTE | ~2016-09-12 | CR72 ---
[facility] A Service of [facility] & [facility] RADIOLOGY TEXT RESULTS PATIENT: BRUCE CHAVEZ LOCATION: [facility] 549-01 : 43 UNIT #: [id number] AGE: [address]: Swathi Rodriguez MD SEX: M ORDER DR: [id number] [facility] [address] [facility] [place], [place] [address] [id number] I MR#: [id number] Acc #: [id number] NAME: BRUCE CHAVEZ : 1945 SEX: M STUDY DATE/TIME: 09/19/2016 14:22 UNIT: [facility] ROOM: [facility] STUDY DESCRIPTION: CR Chest Single View Portable Attending Physician: Swathi Rodriguez M.D. Ordering Physician: Swathi Rodriguez M.D. Primary Care Physician: Primary Care Physician No MEDICAL IMAGING REPORT This report is preliminary unless electronic signature is present EXAM Single view chest, 09/19/2016 INDICATIONS Bilateral coarse rhonchi on physical exam. Hypertension. COPD. Positive smoking history. Single portable AP view of the chest compared with 09/18/2016. The right PICC remains in place. Heart and mediastinal contours are unchanged. Chronic interstitial opacities in both lungs are similar to the prior study. No new pulmonary opacities. IMPRESSION No new findings. Chronic interstitial opacities in both lungs are similar to the prior exam. Dictated by... Alli Pérez M.D. THIS IS AN ELECTRONICALLY VERIFIED REPORT Alli Pérez M.D. at 09/20/2016 8:38 AM JOSE/jeremías TD: 09/19/2016 22:40 JOB #: [id number] MEDICAL IMAGING REPORT COPY
--- NOTE | ~2016-09-12 | FU ---
[facility] Nutrition Therapy DATE: 09/17/16 Patient: BRUCE SCOTT Physician: [id number] Address: [address] [place] [address] Room/Bed: [address] [place] [address], Zip: [place] [address] Admit Date: 09/12/16 Date of : 43 Height: 6 0 Weight: 134 61.2 NUTRITION MONITORING/FOLLOW-UP: Reason: Nutrition follow up Anthropometrics: Ht: 72", admission wt: 120 lbs, current wt: 119 lbs, BMI: 16.3 (underweight) *134 lbs is inaccurate Labs: Glucose 121, CRP elevated Meds: PPI, Solu-medrol GI: LBM 09/15, abdomen firm, constipation noted Skin: No changed, generalized-1+ edema noted Estimated Nutrition Needs: Increased Assessment: Chart reviewed, events noted. This RD previously assessed and diagnosed with severe PCM related to chronic illness. Patient initially found to have SBO, 09/14 studies note it is improving. + BM's. Patient is on room air, follows commands, moves all extremities, some confusion present. Patient was started on a clear liquid diet 09/14 which was advanced to full liquid on 09/15 and at [address] time RD ordered vanilla TwoCal HN supplements BID. Patient has been NPO today for SBFT this AM, will remain NPO for right femoral bypass tomorrow. It was noted in chart that the patient has been feeling better but is nervous about surgery. He is sleeping at time of RD visit to room. Previous nutritoin goals not yet met, nutrition dx remains with some improvement. See RD recs. Dx: Severe protein calorie malnutrition r/t chronic illness AEB < 50% energy needs for > 1 month, suspected 20% body weight loss in approx. 6 months (severe), BMI 16.3 (underweight). - ACTIVE, SOME IMPROVEMENT Intervention: See recs below, diet advancement per MD + ONS Monitoring, Evaluation and Goals: NOT YET MET 1. Tolerance of diet advancement with minimal c/o N/V. 2. Promote regular GI function. 3. Gradual weight gain towards a healthy BMI range. Monitor: Per protocol, criteria to determine if above goals met Recommendations: [facility] Nutrition Therapy DATE: 09/17/16 Patient: BRUCE CHAVEZ Physician: SEBASTIAN Address: [address] [place] [address] Room/Bed: [address] [place] [address], Zip: [place] [address] Admit Date: 09/12/16 Date of : 43 Height: 6 0 Weight: 134 61.2 Once medically able advance PO diet as tolerated to regular diet and order vanilla TwoCal HN BID to increase oral kcal/protein intake. Suggest GUN NUMBERER eval once diet is ready to be advanced to solid textures. Status: Moderate nutrition risk Respectfully, Lashon Ortiz RD, LD Food and Nutritional Services [facility] cc: client file
--- NOTE | ~2016-09-12 | DS ---
Unit #: [id number] #: [id number] Patient: BRUCE CHAVEZ [id number] [facility]. [place], [place] [address] [id number] I MR#: [id number] NAME: BRUCE CHAVEZ ROOM: 549 Age: 71 Sex: M Admission Date: 09/12/2016 : 1945 Discharge Date: 09/24/2016 Attending Physician: Swathi Rodriguez M.D. Primary Care Physician: No Primary Care Physician DISCHARGE SUMMARY REASON FOR ADMISSION Right foot/abdominal pain. HISTORY OF PRESENT ILLNESS/HOSPITAL COURSE The patient is a 71-year-old, pleasant, male with underlying history of Crohn disease, recurrent small bowel obstructions, status post exploratory laparotomy, as well as small bowel resection in May 2016. He presented secondary to abdominal pain, as well as right foot pain. In regard to his abdominal pain and/or discomfort, he underwent initial CT, which showed the patient possibly had a small bowel obstruction and/or possible stricture. In regard to the same, we placed consultation to [facility]. Conservative management was initiated initially. No further intraoperative management was done, and his small bowel obstruction did resolve. In regard to his overall chronic pain syndrome secondary to Crohn disease, he was maintained on appropriate medications. It was noted on right foot exam that he had fairly significant gangrene and/or decreased circulation. Therefore, we placed consultation to Dr. Flores and associates for evaluation. The patient ultimately, through hospital course, underwent right femoral to below knee popliteal artery bypass graft on 09/18/2016. Postoperatively he otherwise did well. In regard to the patient's decreased hemoglobin, as well as mild abdominal discomfort, it was noted his normal baseline hemoglobin was between 8.[address] consultation to GI service, and they followed and evaluated, but no further endoscopic procedures were performed while he was here. At the present time he is otherwise stable. Physical and occupational therapy services have both recommended rehab at time of discharge secondary to associated co-morbid conditions, as well as his recent surgery. However, the patient is adamantly refusing and states that he will do much better at home. Therefore, although we are recommending rehab, he states he wishes to go home, and we will plan for discharge home later this afternoon. The patient's INR today is 2.6. He was maintained on a heparin drip for bridge to therapeutic INR secondary to peripheral arterial disease. Unit #: [id number] #: [id number] Patient: BRUCE CHAVEZ Overall, his long-term prognosis is guarded/poor if he continues to use tobacco on a long-term basis, and he is well aware that this may cause delay in healing, as well as recurrent gangrene and/or worsening of his peripheral arterial disease. FINAL DISCHARGE DIAGNOSES 1. Right foot gangrene status post right femoral to below knee popliteal artery bypass graft. 2. Small bowel obstruction, now resolved. 3. Crohn exacerbation, now resolved. 4. Severe aortic regurgitation. 5. Systolic heart failure with ejection fraction of 45% to 50%. 6. Hypertension. 7. Hyperlipidemia. 8. Diabetes type 2. 9. Anemia with baseline hemoglobin 8.5 to 9.5. 10. Chronic deconditioning. 11. Failure to thrive. 12. Chronic anticoagulation. FINAL DISCHARGE MEDICATIONS 1. Prednisone 40 mg p.o. daily x5 days. 2. Tylenol 650 mg p.o. q.6 p.r.n. 3. Amiodarone 200 mg p.o. daily. 4. Coumadin 3 mg p.o. daily. 5. Norvasc 5 mg p.o. daily. 6. Lopressor 25 mg p.o. b.i.d. 7. Lipitor 40 mg p.o. q.h.s. 8. Imdur 60 mg p.o. daily. 9. Protonix 40 mg p.o. daily. 10. [place] 10/325 mg 1 tablet p.o. q.6 p.r.n. (#30, prescription given). NOTE: Dr. Moon to review all discharge medications. FOLLOW UP 1. Home health services to perform PT-INR q.72 hours with results being sent to PCP. Goal INR 2-3. 2. Follow up with PCP in 7-10 days. DIAGNOSTIC STUDIES DISCHARGE LABORATORY STUDIES: CMP showing mildly elevated AST 113, ALT 113, creatinine normal at 0.9. INR 2.6. CBC shows hemoglobin of 9.3. NOTE: Time - 55 minutes. Dictated by... Swathi Rodriguez M.D. ERICK/dickson TD: 09/24/2016 11:16 JOB #: [id number] Unit #: [id number] #: [id number] Patient: BRUCE CHAVEZ DISCHARGE SUMMARY X Swathi Rodriguez MD X DISCHARGE SUMMARY
--- NOTE | ~2016-09-12 | CO ---
Unit #: [id number] #: [id number] Patient: BRUCE CHAVEZ [id number] [facility]. [place], [place] [address] [id number] I MR#: [id number] NAME: BRUCE CHAVEZ ROOM: 6 Age: 71 Sex: M Admission Date: 09/12/2016 : 1945 Attending Physician: John Heath M.D. Primary Care Physician: No Primary Care Physician CONSULTATION REPORT REASON FOR CONSULT Right foot wound. HISTORY OF PRESENT ILLNESS This is a 71-year-old -[place] male admitted to [facility] with right foot pain, right foot wound, and abdominal pain. The patient has a history of having a spider bite in his right leg in 2000 requiring extensive skin grafting and right fifth toe amputation. At some point, he also had a right superficial femoral artery stent placed. However, he is unsure when this was placed although he thinks it was placed around 2000 as a result of the spider bite. He reports he was hospitalized for approximately three months at that time. He subsequently, as a result of that hospitalization, has severe muscle wasting in his right leg and is unable to dorsiflex his right foot and it is atrophied in an inward position. Despite this, he is able to ambulate with the use of a walker. About a month ago, the patient reports that he noticed some wounds developing on his right fourth and second toes as a result of his shoe rubbing. The wounds failed to heal and the pain became too great and since that time he has been unable to walk. We have been asked to see Mr. Chavez to evaluate these wounds and the potential for revascularization. PAST MEDICAL HISTORY 1. Peripheral artery disease. 2. Crohn disease. 3. Hypertension. 4. NC. 5. Dysphagia. 6. Coronary artery disease. ALLERGIES Aspirin with a complaint of stomach discomfort. MEDICATION LIST 1. Protonix 40 mg daily. 2. Norvasc 5 mg daily. 3. Imdur 60 mg daily. 4. Amiodarone 200 mg twice daily. SOCIAL HISTORY The patient lives with his sister who is provides care for. He reports a history of smoking at least one cigarette daily. However, he has a significant past medical history for smoking. He denies alcohol or drug use. Unit #: [id number] #: [id number] Patient: BRUCE CHAVEZ FAMILY HISTORY Mother and father are both . Mother has an extensive history of vascular disease requiring bilateral amputation. REVIEW OF SYSTEMS CONSTITUTIONAL: Generalized abdominal pain and pain in his right foot. EYES: Negative. EARS/NOSE/MOUTH/THROAT: Negative. RESPIRATORY: Negative. CARDIOVASCULAR: Negative. GASTROINTESTINAL: Abdominal pain. Denies nausea or vomiting. GENITOURINARY: Negative. HEME/LYMPH: Negative. ENDOCRINE: Negative. MUSCULOSKELETAL: Decreased movement of right foot related to muscle atrophy. Unable to ambulate due to pain in right foot. INTEGUMENTARY: Right fourth infected toe wounds. Small skin opening below his right knee. NEUROLOGICAL: Negative. PSYCHIATRIC: Negative. PHYSICAL EXAMINATION VITAL SIGNS: Temperature 98.7, heart rate 78, O2 sats 95%, blood pressure 109/55. GENERAL APPEARANCE: This is a thin but well developed -[place] male in no acute distress. Good mood, appropriate affect. Answered questions appropriate. HEENT: Normocephalic. Pupils equal, round, reactive to light. NECK: No carotid bruits noted. CARDIAC: Regular rate and rhythm. No murmurs noted. LUNGS: Clear to auscultation with diminished bilateral bases. ABDOMEN: Positive bowel sounds. Abdomen shows signs of previous skin harvesting for skin graft. Abdomen has dimpled appearance from previous PEG tube. VASCULAR: Palpable radial pulses bilaterally. Palpable right femoral pulse, nonpalpable left femoral pulse. Absent popliteal, dorsalis pedis, posterior tibialis pulses in bilateral lower extremities. INTEGUMENTARY: Skin is warm and dry. Right foot with history of fifth toe amputation. Right fourth and second toe with dry gangrene. There is a small opening in the skin below patient's right knee on his medial aspect. This appears to be where skin is dry and fissures. NEUROLOGICAL: Cranial nerves II-XII grossly intact. Normal strength upper extremities. Weakness of right lower extremity. PSYCHIATRIC: Oriented to person, place and time. DIAGNOSTIC STUDIES IMAGING: The patient underwent CTA with bilateral runoff which demonstrates extensive peripheral artery disease. The patient has an occluded left common iliac artery and external iliac occlusion. The patient has right SFA stent occlusion and right peroneal intermittent opacification. LABORATORY: Sodium 139, potassium 4.6, chloride 107, CO2 24, BUN 28, creatinine 1.2, glucose 124, hemoglobin 12.5, hematocrit 38.9, WBC 11.1, platelets 350. ASSESSMENT AND PLAN Unit #: [id number] #: [id number] Patient: BRUCE CHAVEZ 1. Peripheral artery disease. 2. Occluded right superficial femoral artery stent. 3. Dry gangrene. IMPRESSION Patient will need a right femoral to below knee bypass. He may, in the future, require an aorto-bifemoral bypass. Will plan to obtain vein mapping to identify suitable conduit. We will also obtain bilateral lower extremity ABIs to assess current OPHELIA values. We will ask nursing to apply dry gauze between his toes to keep them . Will also have nursing staff pain his right fourth and second toe with Betadine. Thank you for allowing us to participate in the care of this patient. Dictated byDorinda. Anshu Anne APRN for Kevin Swann/yonathan TD: 09/13/2016 10:35 JOB #: [id number] CONSULTATION REPORT X X CONSULTATION REPORT
--- NOTE | ~2016-09-12 | CO ---
Unit #: [id number] #: [id number] Patient: BRUCE CHAVEZ [id number] [address] [address] [id number] I MR#: [id number] NAME: BRUCE CHAVEZ ROOM: 566 Age: 71 Sex: M Admission Date: 09/12/2016 : 1945 Attending Physician: John Heath M.D. Consultation Date: 09/13/2016 CONSULTATION REPORT REASON FOR CONSULTATION Small-bowel obstruction. Thank you very much for asking us to see Mr. Chavez. HISTORY OF PRESENT ILLNESS He is a 71-year-old black male, whose past medical history is remarkable for Crohn disease. He has had several small-bowel obstructions in the past and actually had exploratory laparotomy with segmental small-bowel resection in 05/2016. The pathology at that time was consistent with Crohn disease. The patient states that for the last 2 to 3 days, he had increased abdominal pain and distention. He has had nausea and vomiting. He denies any hematemesis. His last bowel movement was 2 or 3 days ago. He denies any lower GI bleeding. He has had no or pulmonary symptoms. He came to the emergency room for further evaluation. A CT scan showed a small-bowel obstruction and some thickening of his distal esophagus consistent with possible esophagitis. The patient had no free air or pneumatosis. The CT angiogram showed critical stenosis of his distal vasculature and the patient was started on heparin. He was found to have on examination in the emergency room several toes have turned black over the last month. He has been unable to walk on his right lower extremity because of the pain. He presents at this time for further evaluation and treatment. PAST MEDICAL HISTORY Coronary artery disease, hypertension, Crohn disease. PAST SURGICAL HISTORY PEG tube placement and removal, right leg surgery with extensive debridement and split-thickness skin grafting after a brown recluse spider bite, exploratory laparotomy, and small-bowel resection. SOCIAL HISTORY Positive for tobacco use. No alcohol use. FAMILY HISTORY Hypertension. ALLERGIES Aspirin. MEDICATIONS Please see med rec sheet. Unit #: [id number] #: [id number] Patient: BRUCE CHAVEZ REVIEW OF SYSTEMS Negative except for above. IMMUNIZATION STATUS Unknown. PHYSICAL EXAMINATION GENERAL: Well-developed, thin black male, in no apparent distress. VITAL SIGNS: Afebrile. Vital signs stable. HEENT: Sclerae not icteric. Extraocular movements are intact. BACK: No CVA or spinous tenderness. ABDOMEN: Examination of his abdomen reveals a distended abdomen with no rebound, peritoneal signs, or masses. This incision is well healed. He has no evidence of hernia. EXTREMITIES: Examination of his extremities show normal left lower extremity that is warm distally. Examination of the right lower extremity reveals evidence a split-thickness skin grafting in the past. He has several dry gangrenous toes and decreased movement of his ankle and toes. DIAGNOSTIC STUDIES LABORATORY RESULTS: Reveal the patient to have a CMP that is normal except for glucose of 124, BUN of 28. His PT was 12 yesterday and his PTT is 48.8. On heparin today. His white count is 11.1 with hemoglobin 12.5, hematocrit 38.9, MCV is normal at 94.4. His urinalysis, negative nitrites, trace leukocyte esterase. IMAGING STUDIES: An ultrasound of his gallbladder in 05/2016 showed no stones. IMPRESSION A 71-year-old black male with Crohn disease, recurrent small-bowel obstruction, possible esophagitis with severe peripheral vascular disease. The Vascular Surgery Service is going to see the patient for his vascular issues to his lower extremities. In terms of small-bowel obstruction, he needs NG tube decompression. We will have Dr. Kimbrough of GI medicine, who has seen the patient in the past and evaluate for possible recurrent Crohn disease. In addition, he will need IV fluids and repeat abdominal x-rays. He may need a small-bowel followthrough for further evaluation. We explained to the patient that he may need operative intervention. He understands and requests to proceed with the current treatment plan. Dictated by... Kevin Carver/florecita TD: 09/14/2016 00:54 JOB #: [id number] CC: [facility] Unit #: [id number] #: [id number] Patient: BRUCE CHAVEZ CONSULTATION REPORT X Raymundo Hernandez MD X CONSULTATION REPORT
[2016-09-12 13:43] LABS: BASOPHIL% 0.2 % (0-2.5); EOSINOPHIL# 0.1 X10e3 (0-0.7); EOSINOPHIL% 0.7 % (0.0-7.0); HEMATOCRIT 41.9 % (38.0-50.0); HEMOGLOBIN 13.6 gm/dL (13.0-16.0); LYMPHOCYTE% 8.7 % (17.0-45.0); MEAN CELL VOLUME 93.7 FL (83-96); MEAN CORPUSCULAR HEMOGLOBIN 30.3 PG (28-34); MEAN CORPUSCULAR HGB CONC 32.4 g/dL (30-36); MEAN PLATELET VOLUME 8.6 FL (6.5-11.5); MONOCYTE# 0.9 X10e3 (0-1.0); MONOCYTE% 7.9 % (3.0-12.0); NEUTROPHIL# 9.2 X10e3 (1.5-7.1); NEUTROPHIL% 82.5 % (40-75); PLATELET COUNT 396 X10e3 (140-420); RED BLOOD COUNT 4.47 X10e (3.90-5.60); RED CELL DISTRIBUTION WIDTH 14.4 % (11.0-15.5); WHITE BLOOD COUNT 11.2 X10e3 (4.0-10.5)
[~2016-09-12 13:49] MED LIST: AMIODARONE PO; ASPIRIN81 MG PO; FLAGYL PO; HYDROCODON-ACE1 EAC7 PO; ISOSORBIDE DINI30 MG PO; LASIX20 MG PO; LEVAQUIN PO; MAGNESIUM400 MG PO; MELATONIN3 M4 PO; METOPROLOL TAR25 MG PO; MIRALAX17 G2 PO; NORVASC PO; PREDNISONE PO; PROTONIX PO
[2016-09-12 13:51] LABS: DIFF IND NO
[2016-09-12 13:59] LABS: INR 1.1; PARTIAL THROMBOPLASTIN TIME 32.7 SECONDS (23.5-31.3); PROTHROMBIN TIME (PATIENT) 11.4 SECONDS (9.6-11.5)
[2016-09-12 14:32] LABS: ALBUMIN SERUM 3.7 g/dL (3.5-5.0); ALKALINE PHOSPHATASE 71 U/L (32-92); ALT (SGPT) 30 U/L (10-40); AMYLASE 14 U/L (0-46); AST (SGOT) 36 U/L (10-42); BILIRUBIN, DIRECT 0.2 mg/dL (0.0-0.2); BILIRUBIN,INDIRECT 0.8 mg/dL (0.0-0.9); BLOOD UREA NITROGEN 29 mg/dL (9-23); BUN/CREATININE RATIO 26.36; CALCIUM SERUM 9.1 mg/dL (8.4-10.2); CARBON DIOXIDE 26 mmol/L (22-31); CHLORIDE 108 mmol/L (100-111); CREATININE SERUM 1.1 mg/dL (0.6-1.4); GLOM FILT RATE Estimated ABOVE60 mL/min (>60); GLUCOSE FASTING 103 mg/dL (70-110); LIPASE 10 U/L (22-51); PHOSPHOROUS 2.5 mg/dL (2.5-4.6); POTASSIUM 4.4 mmol/L (3.5-5.1); PROTEIN TOTAL SERUM 8.1 g/dL (6.0-8.3); SODIUM 144 mmol/L (135-145)
[2016-09-12 17:35] LABS: URINE SOURCE CLEAN CATCH
[2016-09-12 17:44] LABS: URINE APPEARANCE CLEAR; URINE BILIRUBIN NEG (NEG); URINE BLOOD NEG (NEG); URINE COLOR DK YELLOW; URINE GLUCOSE NEG (NEG); URINE KETONE NEG (NEG); URINE LEUKOCYTE ESTERASE TRACE (NEG); URINE NITRATE NEG (NEG); URINE PH 6.5 (5-8); URINE PROTEIN 1+ (NEG); URINE SPECIFIC GRAVITY 1.041 (1.003-1.035)
[2016-09-12 17:45] LABS: URBCS1 AUWI 0-2 /[HPF] (0-2); URINE BACTERIA AUWI NEG (NEGATIVE); URINE SQUAMOUS EPITHELIAL CELL OCC /[HPF]
[2016-09-12 17:56] LABS: CULTURE INDICATED? NO
[2016-09-12] MEDS ORDERED: PROTONIX PO (19:29)
[2016-09-12] MEDS ORDERED: NORVASC PO (19:29)
[2016-09-12] MEDS ORDERED: AMIODARONE PO (19:30)
[2016-09-12] MEDS ORDERED: IMDUR-ER60 M1 PO (19:30)
[2016-09-12 21:46] LABS: INR 1.1; PARTIAL THROMBOPLASTIN TIME 46.7 SECONDS (23.5-31.3)
[2016-09-13 04:57] LABS: BASOPHIL% 0.4 % (0-2.5); DIFF IND NO; EOSINOPHIL# 0.1 X10e3 (0-0.7); EOSINOPHIL% 0.9 % (0.0-7.0); HEMATOCRIT 38.9 % (38.0-50.0); HEMOGLOBIN 12.5 gm/dL (13.0-16.0); LYMPHOCYTE# 1.4 X10e3 (1.0-3.5); LYMPHOCYTE% 12.8 % (17.0-45.0); MEAN CELL VOLUME 94.4 FL (83-96); MEAN CORPUSCULAR HEMOGLOBIN 30.4 PG (28-34); MEAN CORPUSCULAR HGB CONC 32.3 g/dL (30-36); MEAN PLATELET VOLUME 8.9 FL (6.5-11.5); MONOCYTE# 1.2 X10e3 (0-1.0); NEUTROPHIL# 8.4 X10e3 (1.5-7.1); NEUTROPHIL% 74.9 % (40-75); PLATELET COUNT 350 X10e3 (140-420); RED BLOOD COUNT 4.12 X10e (3.90-5.60); RED CELL DISTRIBUTION WIDTH 14.5 % (11.0-15.5); WHITE BLOOD COUNT 11.1 X10e3 (4.0-10.5)
[2016-09-13 05:51] LABS: BLOOD UREA NITROGEN 28 mg/dL (9-23); BUN/CREATININE RATIO 23.33; CALCIUM SERUM 8.4 mg/dL (8.4-10.2); CARBON DIOXIDE 24 mmol/L (22-31); CHLORIDE 107 mmol/L (100-111); CREATININE SERUM 1.2 mg/dL (0.6-1.4); GLOM FILT RATE Estimated ABOVE60 mL/min (>60); GLUCOSE FASTING 124 mg/dL (70-110); POTASSIUM 4.6 mmol/L (3.5-5.1); SODIUM 139 mmol/L (135-145)
[2016-09-14 03:05] LABS: HEMATOCRIT 31.5 % (38.0-50.0); MEAN CELL VOLUME 94.3 FL (83-96); MEAN CORPUSCULAR HEMOGLOBIN 31.1 PG (28-34); MEAN CORPUSCULAR HGB CONC 32.9 g/dL (30-36); RED BLOOD COUNT 3.34 X10e (3.90-5.60); RED CELL DISTRIBUTION WIDTH 14.8 % (11.0-15.5); WHITE BLOOD COUNT 7.6 X10e3 (4.0-10.5)
[2016-09-14 03:08] LABS: HEMOGLOBIN 10.4 gm/dL (13.0-16.0)
[2016-09-14 03:35] LABS: ALBUMIN SERUM 2.9 g/dL (3.5-5.0); ALKALINE PHOSPHATASE 61 U/L (32-92); ALT (SGPT) 43 U/L (10-40); AST (SGOT) 55 U/L (10-42); BILIRUBIN,TOTAL 0.9 mg/dL (0.2-2.0); BLOOD UREA NITROGEN 29 mg/dL (9-23); BUN/CREATININE RATIO 20.71; CALCIUM SERUM 8.1 mg/dL (8.4-10.2); CARBON DIOXIDE 24 mmol/L (22-31); CHLORIDE 105 mmol/L (100-111); CHOLESTEROL 127 mg/dL (0-200); CREATININE SERUM 1.4 mg/dL (0.6-1.4); GLOM FILT RATE Estimated ABOVE60 mL/min (>60); GLUCOSE FASTING 107 mg/dL (70-110); HDL CHOLESTEROL 31 mg/dL (29-75); LDL CHOLESTEROL 77 mg/dL (-130); LDL/HDL RATIO 2 RATIO (0-4); PROTEIN TOTAL SERUM 6.4 g/dL (6.0-8.3); SODIUM 134 mmol/L (135-145); TRIGLYCERIDES 94 mg/dL (10-160)
[2016-09-15 14:01] LABS: HEMATOCRIT 29.4 % (38.0-50.0); HEMOGLOBIN 9.6 gm/dL (13.0-16.0); MEAN CELL VOLUME 94.8 FL (83-96); MEAN CORPUSCULAR HEMOGLOBIN 30.8 PG (28-34); MEAN CORPUSCULAR HGB CONC 32.5 g/dL (30-36); MEAN PLATELET VOLUME 8.9 FL (6.5-11.5); RED BLOOD COUNT 3.1 X10e (3.90-5.60); RED CELL DISTRIBUTION WIDTH 14.4 % (11.0-15.5); WHITE BLOOD COUNT 7.8 X10e3 (4.0-10.5)
[2016-09-15 14:22] LABS: ALKALINE PHOSPHATASE 62 U/L (32-92); ALT (SGPT) 31 U/L (10-40); AST (SGOT) 30 U/L (10-42); BILIRUBIN,TOTAL 0.6 mg/dL (0.2-2.0); BLOOD UREA NITROGEN 16 mg/dL (9-23); BUN/CREATININE RATIO 14.54; CALCIUM SERUM 8.1 mg/dL (8.4-10.2); CARBON DIOXIDE 21 mmol/L (22-31); CHLORIDE 110 mmol/L (100-111); CREATININE SERUM 1.1 mg/dL (0.6-1.4); GLOM FILT RATE Estimated ABOVE60 mL/min (>60); GLUCOSE FASTING 154 mg/dL (70-110); POTASSIUM 4.2 mmol/L (3.5-5.1); PROTEIN TOTAL SERUM 6.3 g/dL (6.0-8.3); SODIUM 132 mmol/L (135-145)
[2016-09-16 05:10] LABS: HEMATOCRIT 26.4 % (38.0-50.0); HEMOGLOBIN 8.7 gm/dL (13.0-16.0); MEAN CELL VOLUME 93.8 FL (83-96); MEAN CORPUSCULAR HEMOGLOBIN 30.9 PG (28-34); MEAN CORPUSCULAR HGB CONC 32.9 g/dL (30-36); RED BLOOD COUNT 2.81 X10e (3.90-5.60); RED CELL DISTRIBUTION WIDTH 14.3 % (11.0-15.5); WHITE BLOOD COUNT 9.4 X10e3 (4.0-10.5)
[2016-09-16 05:51] LABS: BLOOD UREA NITROGEN 12 mg/dL (9-23); CALCIUM SERUM 8.5 mg/dL (8.4-10.2); CARBON DIOXIDE 22 mmol/L (22-31); CHLORIDE 107 mmol/L (100-111); CREATININE SERUM 1.1 mg/dL (0.6-1.4); GLOM FILT RATE Estimated ABOVE60 mL/min (>60); GLUCOSE FASTING 113 mg/dL (70-110); POTASSIUM 4.5 mmol/L (3.5-5.1); SODIUM 136 mmol/L (135-145)
[2016-09-17 06:53] LABS: HEMATOCRIT 26.6 % (38.0-50.0); HEMOGLOBIN 8.6 gm/dL (13.0-16.0); MEAN CELL VOLUME 94.7 FL (83-96); MEAN CORPUSCULAR HEMOGLOBIN 30.8 PG (28-34); MEAN CORPUSCULAR HGB CONC 32.5 g/dL (30-36); MEAN PLATELET VOLUME 9.3 FL (6.5-11.5); RED BLOOD COUNT 2.81 X10e (3.90-5.60); RED CELL DISTRIBUTION WIDTH 14.7 % (11.0-15.5); WHITE BLOOD COUNT 12.2 X10e3 (4.0-10.5)
[2016-09-17 07:20] LABS: ALBUMIN SERUM 2.7 g/dL (3.5-5.0); ALKALINE PHOSPHATASE 83 U/L (32-92); ALT (SGPT) 22 U/L (10-40); AST (SGOT) 18 U/L (10-42); BILIRUBIN,TOTAL 0.6 mg/dL (0.2-2.0); BLOOD UREA NITROGEN 13 mg/dL (9-23); CALCIUM SERUM 8.4 mg/dL (8.4-10.2); CARBON DIOXIDE 25 mmol/L (22-31); CHLORIDE 106 mmol/L (100-111); GLOM FILT RATE Estimated ABOVE60 mL/min (>60); GLUCOSE FASTING 121 mg/dL (70-110); POTASSIUM 4.3 mmol/L (3.5-5.1); PROTEIN TOTAL SERUM 5.7 g/dL (6.0-8.3); SODIUM 138 mmol/L (135-145)
[2016-09-18 09:10] LABS: HEMATOCRIT 27.2 % (38.0-50.0); HEMOGLOBIN 8.8 gm/dL (13.0-16.0); MEAN CELL VOLUME 93.4 FL (83-96); MEAN CORPUSCULAR HEMOGLOBIN 30.4 PG (28-34); MEAN CORPUSCULAR HGB CONC 32.5 g/dL (30-36); MEAN PLATELET VOLUME 8.9 FL (6.5-11.5); RED BLOOD COUNT 2.91 X10e (3.90-5.60); RED CELL DISTRIBUTION WIDTH 14.6 % (11.0-15.5); WHITE BLOOD COUNT 10.9 X10e3 (4.0-10.5)
[2016-09-18 09:27] LABS: INR 1.2
[2016-09-18 09:37] LABS: BLOOD UREA NITROGEN 16 mg/dL (9-23); CALCIUM SERUM 8.2 mg/dL (8.4-10.2); CARBON DIOXIDE 26 mmol/L (22-31); CHLORIDE 104 mmol/L (100-111); GLOM FILT RATE Estimated ABOVE60 mL/min (>60); GLUCOSE FASTING 113 mg/dL (70-110); POTASSIUM 3.8 mmol/L (3.5-5.1); SODIUM 138 mmol/L (135-145)
[2016-09-19 03:27] LABS: BASOPHIL% 0.1 % (0-2.5); DIFF IND YES; HEMATOCRIT 26.8 % (38.0-50.0); HEMOGLOBIN 8.7 gm/dL (13.0-16.0); LYMPHOCYTE# 0.7 X10e3 (1.0-3.5); LYMPHOCYTE% 3.8 % (17.0-45.0); MEAN CELL VOLUME 93.9 FL (83-96); MEAN CORPUSCULAR HEMOGLOBIN 30.4 PG (28-34); MEAN CORPUSCULAR HGB CONC 32.4 g/dL (30-36); MEAN PLATELET VOLUME 8.7 FL (6.5-11.5); MONOCYTE# 1.3 X10e3 (0-1.0); MONOCYTE% 7.4 % (3.0-12.0); NEUTROPHIL# 15.9 X10e3 (1.5-7.1); NEUTROPHIL% 88.7 % (40-75); PLATELET COUNT 283 X10e3 (140-420); RED BLOOD COUNT 2.86 X10e (3.90-5.60); WHITE BLOOD COUNT 17.9 X10e3 (4.0-10.5)
[2016-09-19 04:10] LABS: BLOOD UREA NITROGEN 16 mg/dL (9-23); CARBON DIOXIDE 25 mmol/L (22-31); CHLORIDE 106 mmol/L (100-111); GLOM FILT RATE Estimated ABOVE60 mL/min (>60); GLUCOSE FASTING 139 mg/dL (70-110); POTASSIUM 4.4 mmol/L (3.5-5.1); SODIUM 137 mmol/L (135-145)
[2016-09-19 04:19] LABS: HYPERSEGMENTED POLYS PRESENT
[2016-09-19 04:20] LABS: BURR CELLS PRESENT; HYPOCHROMIA MOD; POIKILOCYTOSIS MOD
[2016-09-19 04:30] LABS: PLATELET ESTIMATE NORMAL (NORMAL)
[2016-09-20 05:48] LABS: HEMATOCRIT 27.4 % (38.0-50.0); HEMOGLOBIN 8.7 gm/dL (13.0-16.0); MEAN CELL VOLUME 95.6 FL (83-96); MEAN CORPUSCULAR HEMOGLOBIN 30.2 PG (28-34); MEAN CORPUSCULAR HGB CONC 31.6 g/dL (30-36); MEAN PLATELET VOLUME 8.9 FL (6.5-11.5); RED BLOOD COUNT 2.87 X10e (3.90-5.60); RED CELL DISTRIBUTION WIDTH 14.8 % (11.0-15.5); WHITE BLOOD COUNT 18.2 X10e3 (4.0-10.5)
[2016-09-20 05:57] LABS: INR 1.3; PARTIAL THROMBOPLASTIN TIME 82.5 SECONDS (23.5-31.3); PROTHROMBIN TIME (PATIENT) 13.3 SECONDS (9.6-11.5)
[2016-09-20 07:18] LABS: ALBUMIN SERUM 2.4 g/dL (3.5-5.0); ALKALINE PHOSPHATASE 69 U/L (32-92); ALT (SGPT) 15 U/L (10-40); AST (SGOT) 15 U/L (10-42); BILIRUBIN,TOTAL 0.5 mg/dL (0.2-2.0); BLOOD UREA NITROGEN 20 mg/dL (9-23); BUN/CREATININE RATIO 18.18; CALCIUM SERUM 7.9 mg/dL (8.4-10.2); CARBON DIOXIDE 26 mmol/L (22-31); CHLORIDE 107 mmol/L (100-111); CREATININE SERUM 1.1 mg/dL (0.6-1.4); GLOM FILT RATE Estimated ABOVE60 mL/min (>60); GLUCOSE FASTING 139 mg/dL (70-110); SODIUM 140 mmol/L (135-145)
[2016-09-21 07:03] LABS: HEMATOCRIT 26.9 % (38.0-50.0); HEMOGLOBIN 8.4 gm/dL (13.0-16.0); MEAN CELL VOLUME 96.3 FL (83-96); MEAN CORPUSCULAR HGB CONC 31.1 g/dL (30-36); MEAN PLATELET VOLUME 8.7 FL (6.5-11.5); RED BLOOD COUNT 2.79 X10e (3.90-5.60); RED CELL DISTRIBUTION WIDTH 15.4 % (11.0-15.5); WHITE BLOOD COUNT 23.9 X10e3 (4.0-10.5)
[2016-09-21 07:10] LABS: INR 2.9
[2016-09-21 07:12] LABS: PROTHROMBIN TIME (PATIENT) 31.9 SECONDS (9.6-11.5)
[2016-09-21 07:31] LABS: BLOOD UREA NITROGEN 22 mg/dL (9-23); BUN/CREATININE RATIO 18.33; CALCIUM SERUM 7.8 mg/dL (8.4-10.2); CARBON DIOXIDE 25 mmol/L (22-31); CHLORIDE 108 mmol/L (100-111); CREATININE SERUM 1.2 mg/dL (0.6-1.4); GLOM FILT RATE Estimated ABOVE60 mL/min (>60); GLUCOSE FASTING 168 mg/dL (70-110); POTASSIUM 4.5 mmol/L (3.5-5.1); SODIUM 137 mmol/L (135-145)
[2016-09-22 06:27] LABS: PROTHROMBIN TIME (PATIENT) 52.9 SECONDS (9.6-11.5)
[2016-09-22 06:28] LABS: INR 4.8
[2016-09-22 06:32] LABS: HEMATOCRIT 25.2 % (38.0-50.0); HEMOGLOBIN 7.9 gm/dL (13.0-16.0); MEAN CELL VOLUME 96.7 FL (83-96); MEAN CORPUSCULAR HEMOGLOBIN 30.5 PG (28-34); MEAN CORPUSCULAR HGB CONC 31.5 g/dL (30-36); MEAN PLATELET VOLUME 8.8 FL (6.5-11.5); RED BLOOD COUNT 2.61 X10e (3.90-5.60); RED CELL DISTRIBUTION WIDTH 15.5 % (11.0-15.5); WHITE BLOOD COUNT 17.8 X10e3 (4.0-10.5)
[2016-09-22 07:08] LABS: BLOOD UREA NITROGEN 26 mg/dL (9-23); CALCIUM SERUM 7.9 mg/dL (8.4-10.2); CARBON DIOXIDE 26 mmol/L (22-31); CHLORIDE 109 mmol/L (100-111); GLOM FILT RATE Estimated ABOVE60 mL/min (>60); GLUCOSE FASTING 110 mg/dL (70-110); POTASSIUM 4.3 mmol/L (3.5-5.1); SODIUM 142 mmol/L (135-145)
[2016-09-23 06:07] LABS: HEMATOCRIT 28.7 % (38.0-50.0); HEMOGLOBIN 9.2 gm/dL (13.0-16.0); MEAN CORPUSCULAR HEMOGLOBIN 29.7 PG (28-34); MEAN CORPUSCULAR HGB CONC 32.2 g/dL (30-36); MEAN PLATELET VOLUME 8.8 FL (6.5-11.5); RED BLOOD COUNT 3.11 X10e (3.90-5.60); RED CELL DISTRIBUTION WIDTH 18.4 % (11.0-15.5)
[2016-09-23 06:11] LABS: MEAN CELL VOLUME 92.3 FL (83-96)
[2016-09-23 06:56] LABS: BLOOD UREA NITROGEN 27 mg/dL (9-23); CALCIUM SERUM 7.6 mg/dL (8.4-10.2); CARBON DIOXIDE 29 mmol/L (22-31); CHLORIDE 108 mmol/L (100-111); GLOM FILT RATE Estimated ABOVE60 mL/min (>60); GLUCOSE FASTING 106 mg/dL (70-110); SODIUM 140 mmol/L (135-145)
[2016-09-23 10:58] LABS: INR 3.3; PROTHROMBIN TIME (PATIENT) 36.1 SECONDS (9.6-11.5)
[2016-09-24 07:32] LABS: BASOPHIL% 0.1 % (0-2.5); EOSINOPHIL% 0.2 % (0.0-7.0); HEMOGLOBIN 9.3 gm/dL (13.0-16.0); LYMPHOCYTE# 1.1 X10e3 (1.0-3.5); MEAN CORPUSCULAR HEMOGLOBIN 30.1 PG (28-34); MEAN PLATELET VOLUME 9.3 FL (6.5-11.5); MONOCYTE% 7.7 % (3.0-12.0); NEUTROPHIL# 11.4 X10e3 (1.5-7.1); PLATELET COUNT 134 X10e3 (140-420); RED BLOOD COUNT 3.09 X10e (3.90-5.60); WHITE BLOOD COUNT 13.6 X10e3 (4.0-10.5)
[2016-09-24 07:34] LABS: DIFF IND NO
[2016-09-24 07:48] LABS: INR 2.6; PROTHROMBIN TIME (PATIENT) 28.1 SECONDS (9.6-11.5)
[2016-09-24 08:04] LABS: ALBUMIN SERUM 2.4 g/dL (3.5-5.0); ALKALINE PHOSPHATASE 96 U/L (32-92); ALT (SGPT) 113 U/L (10-40); AST (SGOT) 113 U/L (10-42); BILIRUBIN,TOTAL 0.5 mg/dL (0.2-2.0); BLOOD UREA NITROGEN 28 mg/dL (9-23); BUN/CREATININE RATIO 31.11; CALCIUM SERUM 7.4 mg/dL (8.4-10.2); CARBON DIOXIDE 27 mmol/L (22-31); CHLORIDE 110 mmol/L (100-111); CREATININE SERUM 0.9 mg/dL (0.6-1.4); GLOM FILT RATE Estimated ABOVE60 mL/min (>60); GLUCOSE FASTING 106 mg/dL (70-110); SODIUM 141 mmol/L (135-145)
[2016-09-24] MEDS ORDERED: DELTASONE20 MG PO (19:35)
[2016-09-24] MEDS ORDERED: TYL325 PO (19:36)
[2016-09-24] MEDS ORDERED: COUMADIN3 MG PO (19:37)
[2016-09-24] MEDS ORDERED: METOPROLOL TAR25 MG PO (19:38)
[2016-09-24] MEDS ORDERED: ATORVASTATIN CA80 MG PO (19:39)
[2016-09-24] MEDS ORDERED: NORCO 10/3251 TAB PO (19:41)
== END 2016-09-25 10:06 | disposition home health service (06) | DRG 253 ==
LOC: CED 13:49 → CEDOF 18:50 → C5C 09-13 18:50 → CICCU3 09-18 17:52 → C5B 09-18 22:29
PROVIDERS: Emergency Medicine; Family Medicine; Internal Medicine; Surgery; Surgery Vascular Surgery
PROC: B420YZZ Computerized Tomography (CT Scan) of Abdominal Aorta using Other Contrast (ICD-10-PCS; 2016-09-12)
PROC: B42HYZZ Computerized Tomography (CT Scan) of Bilateral Lower Extremity Arteries using Other Contrast (ICD-10-PCS; 2016-09-12)
PROC: B42CYZZ Computerized Tomography (CT Scan) of Pelvic Arteries using Other Contrast (ICD-10-PCS; 2016-09-12)
PROC: B42HYZZ Computerized Tomography (CT Scan) of Bilateral Lower Extremity Arteries using Other Contrast (ICD-10-PCS; 2016-09-12)
PROC: 4A023N7 Measurement of Cardiac Sampling and Pressure, Left Heart, Percutaneous Approach (ICD-10-PCS; 2016-09-13)
PROC: B310YZZ Fluoroscopy of Thoracic Aorta using Other Contrast (ICD-10-PCS; 2016-09-13)
PROC: B211YZZ Fluoroscopy of Multiple Coronary Arteries using Other Contrast (ICD-10-PCS; 2016-09-13)
PROC: B215YZZ Fluoroscopy of Left Heart using Other Contrast (ICD-10-PCS; 2016-09-13)
PROC: 02HV33Z Insertion of Infusion Device into Superior Vena Cava, Percutaneous Approach (ICD-10-PCS; 2016-09-15)
PROC: 4A02X4A Measurement of Cardiac Electrical Activity, Guidance, External Approach (ICD-10-PCS; 2016-09-15)
PROC: B41FYZZ Fluoroscopy of Right Lower Extremity Arteries using Other Contrast (ICD-10-PCS; 2016-09-18)
PROC: 041K0ZL Bypass Right Femoral Artery to Popliteal Artery, Open Approach (ICD-10-PCS; principal; 2016-09-18 14:30)
PROC: 30233N1 Transfusion of Nonautologous Red Blood Cells into Peripheral Vein, Percutaneous Approach (ICD-10-PCS; 2016-09-22)
DX: I70.268 Atherosclerosis of native arteries of extremities with gangrene, other extremity (principal); K56.60 Unspecified intestinal obstruction; E46 Unspecified protein-calorie malnutrition; I11.0 Hypertensive heart disease with heart failure; I50.22 Chronic systolic (congestive) heart failure; K50.90 Crohn's disease, unspecified, without complications; T82.856A Stenosis of peripheral vascular stent, initial encounter; Z68.1 Body mass index [BMI] 19.9 or less, adult; I70.0 Atherosclerosis of aorta; F17.210 Nicotine dependence, cigarettes, uncomplicated; J44.9 Chronic obstructive pulmonary disease, unspecified; I25.10 Atherosclerotic heart disease of native coronary artery without angina pectoris; I25.2 Old myocardial infarction; Y82.8 Other medical devices associated with adverse incidents; I35.1 Nonrheumatic aortic (valve) insufficiency; G89.4 Chronic pain syndrome; D64.9 Anemia, unspecified; R62.7 Adult failure to thrive; Z79.01 Long term (current) use of anticoagulants
CPT/HCPCS: 71010; 74020; 74250; 75635; 75710; 76001; 80048; 80053; 80061; 80076; 81003; 82150; 82607; 82728; 82746; 83540; 83550; 83690; 83735; 84100; 85025; 85027; 85610; 85730; 86140; 86850; 86900; 86901; 86923; 93005; 93922; 94640; 94760; 96361; 96374; 96375; 97110; 97116; 97163; 97167; 97530; 97535; 99285; C1768; C1769; C1887; C1894; C9113; G0365; G8978-GP; G8979-GP; G8980-GP; G8987-GO; G8988-GO; J0690; J1170; J1644; J2250; J2270; J2405; J2720; J2930; J3010; P9016; Q9967

== ENCOUNTER 2016-10-03 15:10 | Inpatient (IN) | payer OTHER ==
--- NOTE | ~2016-10-03 | MR59 ---
[facility] A Service of [facility] & [facility] RADIOLOGY TEXT RESULTS PATIENT: BRUCE CHAVEZ LOCATION: [facility] 474-01 : 43 UNIT #: [id number] AGE: [address]: Swathi Rodriguez MD SEX: M ORDER DR: [id number] [facility] [address] [place], [place] [address] [id number] I MR#: [id number] Acc #: [id number] NAME: BRUEC CHAVEZ : 1945 SEX: M STUDY DATE/TIME: 10/04/2016 15:24 UNIT: [facility] ROOM: [facility] STUDY DESCRIPTION: MR Foot WWo Contrast Rt Attending Physician: Swathi Rodriguez M.D. Ordering Physician: Maricruz Robins M.D. Primary Care Physician: Generic Doctor Not In System MRI CENTER REPORT This report is preliminary unless electronic signature is present. EXAM MRI right forefoot without and with IV contrast 10/04/2016. HISTORY Order states MRI right foot with IV contrast. Gangrene, cellulitis, ? osteomyelitis. History sheet states abscess of right foot gangrene possibly second toe. Patient's foot is contorted and unable to be straightened. Severe pain for 2 weeks. Vascular bypass graft 09/18/2016. Toe amputation. COMPARISON Right foot radiographs 10/03/2016. 09/18/2016 (right femoral to below knee popliteal artery bypass with graft, history and physical 10/03/2016. FINDINGS There is a flexion deformity of the PIP joint of the second toe with essentially a 90 degrees angulation. There is an overlying dorsal wound/ulceration which measures approximately 7 mm AP x 12 mm transverse which communicates with a nonenhancing tract to the interphalangeal joint. The nonenhancing tract is compatible with complex signal fluid and/or necrosis with associated septic arthritis. There is osteomyelitis of the middle phalanx of the distal aspect of the proximal phalanx. The nonenhancing necrotic or fluid-filled tract extends plantar to the proximal phalanx and second metatarsal head. This is associated with a small fluid focus in the flexor tendon sheath just plantar to the second metatarsal head and is concerning for associated flexor infectious tenosynovitis. Inflammation with enhancement extends along the flexor tendon sheath of the second digit to the level of the mid shaft of the second metatarsal. Patient is status post amputation of the fifth ray at the level of the proximal shaft of the fifth metatarsal. STS. [facility] A Service of [facility] & [facility] RADIOLOGY TEXT RESULTS PATIENT: BRUCE CHAVEZ LOCATION: [place] [address] : 43 UNIT #: [id number] AGE: [address]: Swathi Rodriguez MD SEX: M ORDER DR: There is a flexion deformity of the fourth toe. There are findings compatible with fourth toe dorsal side ulceration, osteomyelitis of the middle and possibly distal phalanges, septic arthritis of the PIP and DIP joints, soft tissue nonenhancing necrosis or under perfused tissue, and concern for soft tissue gas. Correlate for gangrene clinically. Early osteomyelitis is suspected of the proximal phalanx at least in its distal aspect. The first and third toes demonstrate no evidence of osteomyelitis. There are multifocal bone infarcts with involvement of the majority of the cuboid, half of the navicular, medial cuneiform, first metatarsal base, lateral cuneiform, fourth metatarsal base, and second and third metatarsal heads. There is generalized muscle atrophy. There is inflammatory versus infectious tenosynovitis of the flexor tendon of the fifth toe. Dorsal fifth toe wound is noted. No fracture is identified. IMPRESSION 1. 90 degree flexion deformity of the PIP joint of the second toe with a dorsal side wound/ulceration detailed above communicating with nonenhancing complex signal fluid and/or non-perfused or under-perfused tissue in the PIP joint tracking into the flexor tendon sheath on the plantar side. Findings are compatible with PIP joint septic arthritis, osteomyelitis of the middle phalanx and distal aspect of the proximal phalanx, and infectious flexor tenosynovitis tracking to the level of the mid shaft of the second metatarsal. Correlate for clinical gangrene of the second toe. 2. Flexion deformity of the fourth toe with suspected dorsal side wound, osteomyelitis of the middle and distal phalanges with at least DIP septic arthritis, and a sizable zone of nonenhancing non-perfused or under-perfused soft tissue with potential soft tissue gas most suggestive of gangrene. Tracking inflammation along the flexor tendon sheath is compatible with either inflammatory or infectious tenosynovitis. 3. Fifth ray amputation. 4. Multifocal bone infarcts. 5. No fracture. 1. Dictated by... Stormy Peterson M.D. THIS IS AN ELECTRONICALLY VERIFIED REPORT Stormy Peterson M.D. at 10/05/2016 10:38 AM [facility] A Service of [facility] RADIOLOGY TEXT RESULTS PATIENT: BRUCE CHAVEZ LOCATION: [facility] 474-01 : 43 UNIT #: [id number] AGE: [address]: Swathi Rodriguez MD SEX: M ORDER DR: CEDRIC/jerry TD: 10/05/2016 08:46 JOB #: [id number] MRI CENTER REPORT Page 1 of 1 COPY
--- NOTE | ~2016-10-03 | CR72 ---
[facility] A Service of [facility] & [facility] RADIOLOGY TEXT RESULTS PATIENT: BRUCE CHAVEZ LOCATION: [facility] 474-01 : 43 UNIT #: [id number] AGE: [address]: Maricruz Robins MD SEX: M ORDER DR: [id number] [facility] [address] [place], [place] [address] [id number] I MR#: [id number] Acc #: [id number] NAME: BRUCE CHAVEZ : 1945 SEX: M STUDY DATE/TIME: 10/04/2016 4:32 UNIT: [facility] ROOM: [facility] STUDY DESCRIPTION: CR Chest Single View Portable Attending Physician: Maricruz Robins M.D. Ordering Physician: Maricruz Robins M.D. Primary Care Physician: Generic Doctor Not In System MEDICAL IMAGING REPORT This report is preliminary unless electronic signature is present EXAM Frontal chest 10/04/2016 INDICATION PICC line placement. TECHNIQUE Frontal chest compared with 09/19/2016. FINDINGS A right-sided PICC line is present. The tip is directed cephalad towards the internal jugular vein and there is a kink in the PICC line about 4 cm from the tip. However, subsequent radiograph at 0448 hours same date demonstrates that the PICC line has subsequently been retracted with the tip at the level of the subclavian vein. Correlate with desired level of positioning. Cardiac silhouette is enlarged. There is atherosclerotic change of the aorta. Coarsened interstitial markings bilaterally are not significantly changed and suggestive of underlying fibrosis and scarring. There is no effusion, pneumothorax or new dense consolidation. Probable atelectasis or scarring in the retrocardiac left lower lobe. Post-traumatic deformities of the AC joint and distal clavicle on the right. IMPRESSION 1. The right-sided PICC line has its tip directed cephalad towards the internal jugular vein and there is a kink in the PICC line about 4 cm from the tip at 0432 hours, however, subsequent radiograph at 0448 hours same date demonstrates the PICC line has been retracted and the tip is at the level of the subclavian vein. Correlate with desired level of positioning. No pneumothorax. STS. [facility] A Service of [facility] & [facility] RADIOLOGY TEXT RESULTS PATIENT: BRUCE CHAVEZ LOCATION: [place] [address]- : 43 UNIT #: [id number] AGE: [address]: Maricruz Robins MD SEX: M ORDER DR: 2. Cardiomegaly and chronic-appearing lung changes. No pneumothorax, new effusion or dense consolidation. STAT * RESULT Dictated by... Hilton Andrews M.D. THIS IS AN ELECTRONICALLY VERIFIED REPORT Hilton Andrews M.D. at 10/04/2016 6:28 AM JOE/megan TD: 10/04/2016 05:55 JOB #: [id number] MEDICAL IMAGING REPORT Page 1 of 1 COPY
--- NOTE | ~2016-10-03 | CR127 ---
[facility] A Service of [facility] & [facility] RADIOLOGY TEXT RESULTS PATIENT: BRUCE CHAVEZ LOCATION: [facility] 474-01 : 43 UNIT #: [id number] AGE: [address]: John Heath MD SEX: M ORDER DR: [id number] [facility] [address] [place], [place] [address] [id number] I MR#: [id number] Acc #: [id number] NAME: BRUCE CHAVEZ : 1945 SEX: M STUDY DATE/TIME: 10/07/2016 10:56 UNIT: [facility] ROOM: [facility] STUDY DESCRIPTION: CR Foot Complete Min 3 View Rt Attending Physician: Swathi Rodriguez M.D. Ordering Physician: Ed Doctor [id number] [facility] Primary Care Physician: Generic Doctor Not In System MEDICAL IMAGING REPORT This report is preliminary unless electronic signature is present Exam Right foot radiographs INDICATIONS Second through fourth toe amputation. Postoperative assessment. TECHNIQUE/COMPARISON 3 views of the right foot without comparison FINDINGS Patient has undergone right second digit, and fourth digit amputation. There is amputation of the mid fifth metatarsal and fifth digit. No new osseous abnormalities. There is generalized osteopenia. IMPRESSION Postsurgical change of the second and fourth digit amputation. Dictated by... Alli Pérez M.D. THIS IS AN ELECTRONICALLY VERIFIED REPORT Alli Pérez M.D. at 10/08/2016 2:11 PM [facility]/isidro TD: 10/07/2016 18:54 JOB #: [id number] MEDICAL IMAGING REPORT Page 1 of 1 COPY
--- NOTE | ~2016-10-03 | HP ---
Unit #: [id number] #: [id number] Patient: BRUCE CHAVEZ [id number] [facility] [address] [place], [place] [address] [id number] I MR#: [id number] NAME: BRUCE CHAVEZ ROOM: 77343 Age: 71 Sex: M Admission Date: 10/03/2016 : 1945 Attending Physician: Maricruz Robins M.D. Primary Care Physician: Generic Doctor Not In System HISTORY AND PHYSICAL CHIEF COMPLAINT Stent in leg infected. HISTORY OF PRESENT ILLNESS The patient is a 71-year-old male with past medical history of peripheral arterial disease, hypertension, Crohn disease, spider bite, who presented to the emergency department for evaluation of the above. Of note, the patient was hospitalized at [facility] 09/12 through 09/24/2016 for right foot and abdominal pain. Regarding the abdominal pain, he was seen in consultation by [facility] for possible small bowel obstruction which resolved. Regarding the right foot, he was noted to have gangrene and decreased circulation and so was seen in consultation by Dr. Flores. He ultimately underwent right femoral to below the knee popliteal artery bypass graft on 09/18/2016. He was discharged home on Coumadin. It was recommended that he go to rehab, however, the patient refused. Since returning home, the patient has had persistent right foot pain. He was seen by Home Health and they were concerned about his foot and were unable to palpate a pulse, so he was advised to go to the emergency department for further evaluation. In the emergency department, the patient had a right foot x-ray that showed osteopenia. He did have dopplerable dorsalis pedis pulse in the right foot as well as palpable popliteal pulse. He was noted to have expressible pus from the second toe of the right foot. He was given vancomycin and Zosyn. He is being admitted to [facility] for evaluation and further treatment. PAST MEDICAL HISTORY 1. Admission to [facility] 09/12 through 09/24/2016 for right foot and abdominal pain. Please see HPI for details. He underwent right femoral to below the knee popliteal bypass grafting during that admission. He also had a small bowel obstruction that was managed nonoperatively. He was discharged home on Coumadin. 2. Peripheral arterial disease, status post femoral-popliteal bypass grafting. 3. Hypertension. 4. Crohn disease. 5. History of spider bite to the right lower extremity requiring multiple skin grafts. 6. Possible history of myocardial infarction. There is no cardiac Unit #: [id number] #: [id number] Patient: BRUCE CHAVEZ catheterization report in [facility]. PAST SURGICAL HISTORY 1. Right femoral-popliteal bypass grafting. 2. Multiple skin grafts to right lower extremity. 3. Exploratory laparotomy. 4. PEG tube placement and removal. ALLERGIES No known allergies. HOME MEDICATIONS Include: 1. Protonix 40 mg daily. 2. Norvasc 5 mg daily. 3. Amiodarone 200 mg daily. 4. Imdur 60 mg daily. 5. Prednisone which I believe the patient has completed. 6. Tylenol 650 q.6 h. p.r.n. 7. Coumadin 3 mg daily. 8. Metoprolol 25 mg b.i.d. 9. Atorvastatin 40 mg daily. 10. [place] 10/325 q.6 h. p.r.n. SOCIAL HISTORY The patient lives with his sister. He continues to smoke a few cigarettes daily. He walks with a walker. FAMILY HISTORY Notable for his mother having coronary artery disease and peripheral vascular disease. REVIEW OF SYSTEMS A complete review of systems is negative except as indicated in the HPI. PHYSICAL EXAMINATION VITAL SIGNS: Temperature 97.5, pulse 55, respirations 16, blood pressure 159/48. GENERAL: The patient is an male who is awake and alert in no acute distress. HEENT: Head is atraumatic. Mucous membranes are moist. NECK: Supple. Trachea is midline. LUNGS: Clear to auscultation bilaterally with no increased work of breathing. HEART: Regular rate and rhythm. ABDOMEN: Soft, nontender. Bowel sounds present in all four quadrants. EXTREMITIES: Second toe of the right foot demonstrates edema, warmth, and tenderness to palpation with yellow pus exuding from the toe. The fourth digit is gangrenous. Per ER documentation, the dorsalis pedis pulse was dopplerable. NEUROLOGIC: Patient is awake and alert. He follows commands. PSYCHIATRIC: Mood and affect are normal. Patient is cooperative. SKIN OF EXAMINED AREAS: Demonstrates the previously described abnormalities. DIAGNOSTIC STUDIES LABORATORY: Basic metabolic panel is normal. CRP is 16.7. Complete blood count notable for hemoglobin 12.5, hematocrit 38.8. Unit #: [id number] #: [id number] Patient: BRUCE CHAVEZ IMAGING: Right foot x-ray shows osteopenia. ASSESSMENT The patient is a 71-year-old male with: 1. Abscess involving the second toe of the right foot. The patient received vancomycin and Zosyn in the emergency department. 2. Gangrene involving the fourth toe of the right foot. 3. Peripheral arterial disease, status post femoral-popliteal bypass grafting on chronic anticoagulation with Coumadin. 4. Hypertension. 5. Crohn disease. 6. History of spider bite to the right lower extremity requiring multiple skin grafts. 7. Tobacco abuse. PLAN 1. Admit to intermediate level. 2. Healthy-heart diet. 3. N.p.o. after midnight for possible surgical intervention. 4. Consult podiatry regarding toe abscess. 5. Blood cultures x2. 6. Wound culture and sensitivity. 7. Vancomycin IV and Zosyn IV pending further workup. 8. Check EKG. 9. Monitor heart rate closely. 10. P.r.n. morphine. 11. P.r.n. Zofran. 12. Check INR. 13. Repeat labs in the morning including INR. 14. Additional workup and consultants based on above. Regarding code status, the patient is a FULL CODE. Dictated by Kevin Cardona/susan TD: 10/03/2016 18:21 JOB #: [id number] Unit #: [id number] #: [id number] Patient: BRUCE CHAVEZ HISTORY AND PHYSICAL Page 1 of 1 X Maricruz Robins MD HISTORY AND PHYSICAL
--- NOTE | ~2016-10-03 | A ---
[facility] Nutrition Therapy DATE: 10/05/16 Patient: BRUCE CHAVEZ Physician: ERINN Address: [address] [place] [address] Room/Bed: [address] [place] [address], Zip: [place] [address] Admit Date: 10/03/16 Date of : 41 Height: 6 0 Weight: 121 54.88 NUTRITIONAL ASSESSMENT: REASON: PT SEEN FOR LOW BMI + ONE NUTRITION RISK PT RE: PRESSURE ULCER/NON-HEALING WOUND PT IS 71 Y.O. MALE ADMITTED FOR ABSCESS ON FOOT PMH: RECURRENT SBO, DYSPHAGIA S/P PEG PLACEMENT AND REMOVAL, CROHNS DISEASE, HTN, CAD, UT, SEVERE PVD, HEP C Anthropometrics: 6'0", WT: 121# (55 KG), BMI: 16.4, 68%IBW Labs: CA+:8.0, ALB: 2.7 Meds: NACL, LIPITOR, ZOFRAN, PROTONIX I/O & Bowel function: 1050/1450 Skin Integrity: GANGRENE/NECROTIC TOES (R) FOOT; SKIN GRAFT RLE 2' SPIDER BITE; DRY/FLAKY SKIN NOTED EDEMA: (R) LEG 1+ EDEMA Estimated Nutrition Needs: INCREASED NUTRIENT NEEDS 2' PT UNDERWEIGHT STATUS, CLINICAL CONDITION Assessment: CHART REVIEWED AND EVENTS NOTED. PT SEEN FOR LOW BMI + PRESSURE ULCER/NON-HEALING WOUND. PT REPORTS FAIR/GOOD PO INTAKE AND APPETITE, NO C/O N/V/D. PT REPORTS CONSUMING 2 MEALS + ONE SNACK DAILY AT HOME. PT REPORTS LOSING WEIGHT BUT UNABLE TO IDENTIFY EXACT AMOUNT AND TIME FRAME. PT ADDS THAT HIS UBW IS ~150# "YEARS AGO". OF NOTE, RD ASSESSED PT ON 09/13/16 AND FOLLOW-UP 09/20/16. THIS RD ENCOURAGED ADEQUATE KCAL AND PROTEIN INTAKE W/SUPPLEMENT INTAKE, PT AGREED TO ENSURE SHAKES BID. PT REPORTED NO DIET QUESTIONS AT THIS TIME. Dx: CHRONIC MALNUTRITION R/T CHRONIC ILLNESS AEB LOW BMI OF 16.4, 68%IBW, WEIGHT LOSS SUSPECTED, RD TO OBSERVE PT TO BE "CACHECTIC-LOOKING". Intervention: 1. NPO (PLANS FOR DIET ADVANCEMENT THIS AM) 2. ENSURE STRAW TID W/MEALS Monitoring, Evaluation and Goals: 1. PO INTAKE; CONSUME >50% OF MEALS AND SUPPLEMENTS W/NO C/O N/V/D 2. WEIGHTS; PROMOTE GRADUAL WEIGHT GAIN; PREVENT FURTHER WEIGHT LOSS 3. SKIN; PROMOTE SKIN HEALING [facility] Nutrition Therapy DATE: 10/05/16 Patient: BRUCE CHAVEZ Physician: ERINN Address: [address] [place] [address] Room/Bed: [address] [place] [address], Zip: [place] [address] Admit Date: 10/03/16 Date of : 41 Height: 6 0 Weight: 121 54.88 MONITOR: -DIET ADVANCEMENT -PO INTAKE/APPETITE -SUPPLEMENT INTAKE -WEIGHTS Recommendations: 1. ONCE MEDICALLY FEASIBLE, ADVANCE DIET TOLERATED TO LOW FIBER 2' PMH 2. ORDER STRAW ENSURE SHAKES TID W/MEALS 3. PLEASE WEIGH PT q 3 DAYS FOR MONITORING PURPOSES 4. PLEASE ORDER MVI W/MINERAL DAILY + 100-200 MG VITAMIN C DAILY TO PROMOTE SKIN HEALING 5. APPRECIATE FAMILY AND STAFF TO ENCOURAGE ADEQUATE KCAL AND PROTEIN INTAKE RD WILL F/U PER PROTOCOL PT IS MOD/SEVERELY COMPROMISED Respectfully, KENYETTA LOTT MS, RD, LD Food and Nutritional Services [facility] cc: client file
--- NOTE | ~2016-10-03 | DS ---
Unit #: [id number] #: [id number] Patient: BRUCE CHAVEZ [id number] [address] [address] [id number] I MR#: [id number] NAME: BRUCE CHAVEZ ROOM: [facility] Age: 71 Sex: M Admission Date: 10/03/2016 : 1945 Discharge Date: 10/09/2016 Attending Physician: John Heath M.D. Primary Care Physician: Generic Doctor Not In System DISCHARGE SUMMARY ADDENDUM The patient was ultimately taken on 10/07/16 for right second and fourth toe amputations at the level of the metatarsophalangeal joint. The patient tolerated the procedure well. Ultimately, cultures have grown methicillin-sensitive Staphylococcus aureus. As a result, the patient's Zosyn and vancomycin were changed to ceftriaxone. The patient did have a brief episode of postoperative encephalopathy. It is likely drug induced secondary to pain medications and anesthesia. It has resolved at this time. The patient is now stable and ready for discharge. He is adamantly refusing rehab. He states that he had been rehab to once before and he was not treated well and refuses to consider any new or different facility. As a result, he is being discharged home on IV Rocephin 2 g daily until '10/25/16' [sic]. The patient is being discharged home with home health for PT, OT and wound changes. The patient should follow up with Podiatry on 10/10/16 at 9 a.m. at [facility] at [address] [place] [address]. DISCHARGE MEDICATIONS 1. Amiodarone 200 mg p.o. daily. 2. Tylenol 650 mg p.o. q.6 hours p.r.n. 3. Coumadin 3 mg p.o. daily. 4. Atorvastatin 40 mg p.o. daily. 5. Norvasc 5 mg p.o. daily. 6. Metoprolol tartrate 25 mg p.o. b.i.d. 7. Percocet 10/325 mg one p.o. q.4 hours p.r.n. 8. Protonix 40 mg p.o. daily. 9. Imdur ER 60 mg p.o. daily. 10. Rocephin 2 g IV daily until '11/04/16' [sic]. Dictated by... Kevin Frey/tom TD: 10/09/2016 11:08 JOB #: [id number] Unit #: [id number] #: [id number] Patient: BRUCE CHAVEZ DISCHARGE SUMMARY Page 1 of 1 X John Heath MD X DISCHARGE SUMMARY
--- NOTE | ~2016-10-03 | CO ---
Unit #: [id number] #: [id number] Patient: BRUCE CHAVEZ [id number] [address] [place], [place] [address] [id number] I MR#: [id number] NAME: BRUCE CHAVEZ ROOM: 474 Age: 71 Sex: M Admission Date: 10/03/2016 : 1945 Attending Physician: Swathi Rodriguez M.D. Primary Care Physician: Generic Doctor Not In System Requesting Physician: Swathi Rodriguez M.D. Consultation Date: 10/04/2016 CONSULTATION REPORT REASON FOR CONSULTATION Infected right foot with peripheral vascular disease. HISTORY OF PRESENT ILLNESS This is a 71-year-old male who is an extremely poor historian. History was obtained from a review of the chart and a discussion with the nursing staff. He has severe peripheral vascular disease, hypertension, Crohn disease. He was admitted recently for abdominal pain and right foot problems and gangrene. He underwent right femoral to below the knee popliteal artery bypass graft about 2 weeks ago. He also had a previous surgically absent right fifth toe. The reason for this admission was drainage from the surgical site and pain in the foot. MRI is pending. The patient does not have any fever or hypotension. Cultures are pending. Vascular has been consulted. He is on vancomycin and Zosyn. ID was consulted for further evaluation. The patient currently is stable. He is awake and alert and does not appear to be in any distress. PAST MEDICAL HISTORY 1. Peripheral vascular disease status post fem-pop bypass grafting recently. 2. History of hypertension. 3. Crohn disease. 4. Previous history of myocardial infarction. PREVIOUS SURGERIES 1. Right fem-pop bypass. 2. Multiple skin grafts right lower extremity. 3. History of multiple wounds. 4. Exploratory laparotomy. 5. PEG placement and removal. DRUG ALLERGIES None. HOME MEDICATIONS Protonix, Norvasc, amiodarone, Imdur, prednisone, Tylenol, Coumadin, Metoprolol, atorvastatin, [place]. MEDICATIONS IN THE HOSPITAL Include Vancomycin, Zosyn, topical Betadine, Protonix, Norvasc, Cordarone, Imdur, Lopressor, Lipitor. SOCIAL HISTORY He lives with his sister. He continues to smoke daily. He walks with a Unit #: [id number] #: [id number] Patient: BRUCE CHAVEZ. No history of alcohol or drug use. FAMILY HISTORY Family history is positive for coronary artery disease and peripheral vascular disease. SYSTEMIC REVIEW Right foot pain. Some drainage from the surgical site. No fever or chills. No abdominal pain, dysuria, frequency, mental status changes, focal neurologic deficits, etc. PHYSICAL EXAMINATION GENERAL: Physical examination reveals a middle-aged male who looks older than his stated age. He is wide awake and alert and does not appear to be in any distress. VITAL SIGNS: Temperature is 97.7, heart rate 56, respirations 16, blood pressure 143/66. No fever was documented during this admission. HEENT: Oral hygiene is poor. NECK: Neck is supple. VASCULAR: There is no edema. LUNGS: Lungs are clear. CARDIOVASCULAR: Heart sounds are normal. ABDOMEN: Abdomen is soft and nontender. NEUROLOGIC: Examination is nonfocal. EXTREMITIES: Right foot exam is quite abnormal. There is surgical absence of the fifth toe. Fourth toe is necrotic and gangrenous. Peripheral pulses are feeble, but the foot is not acutely cold. There is significant hammertoe deformity of the second toe with superficial ulceration, some swelling and foul smelling drainage. There is also foul smelling drainage from the surgical site just distal to the right knee medially. Mild cellulitis around that is also present, but there is no obvious abscess. DIAGNOSTIC STUDIES LABORATORY DIAGNOSTIC STUDIES: Cultures are pending. Wound cultures - Gram-positive cocci in clusters. White count is 7, hemoglobin 12.5, platelets 186. CRP is 16. BUN is 15, creatinine 1.1. Electrolytes normal. IMAGING: MRI is pending. Chest x-ray shows cardiomegaly, low lung volumes. X-ray of the foot shows no definite acute fracture, partial resection of the fifth metatarsal. IMPRESSION The main ID issue is surgical site infection at the site of recent fem-pop bypass. He also has infected wound of the right second toe with suspected underlying osteomyelitis. RECOMMENDATIONS I agree with vancomycin and Zosyn pending cultures. Also, agree with MRI and vascular followup. I will order a sedimentation rate and wait for the workup. Further recommendations will follow. Dictated by... Unit #: [id number] #: [id number] Patient: BRUCE CHAVEZ Richard Phillips M.D. NICKI/dickson TD: 10/05/2016 07:38 JOB #: [id number] CONSULTATION REPORT Page 1 of 1 X Richard Phillips MD CONSULTATION REPORT
--- NOTE | ~2016-10-03 | DS ---
Unit #: [id number] #: [id number] Patient: BRUCE CHAVEZ [id number] [facility] [address] [place], [place] [address] [id number] I MR#: [id number] NAME: BRUCE CHAVEZ ROOM: 474 Age: 71 Sex: M Admission Date: 10/03/2016 : 1945 Discharge Date: 10/07/2016 Attending Physician: Swathi Rodriguez M.D. Primary Care Physician: Generic Doctor Not In System DISCHARGE SUMMARY TRANSITION OF CARE SUMMARY REASON FOR ADMISSION Infected leg stent. HISTORY OF PRESENT ILLNESS/HOSPITAL COURSE The patient is a 71-year-old male, recently admitted to [facility] from 09/12/2016 through 09/24/2016 secondary to right foot as well as abdominal pain. Initially, his abdominal pain was felt to be likely secondary to possible small bowel obstruction which was treated conservatively and managed medically. [facility] did follow at that time. In regard to his right lower discomfort and/or pain, he does have a prior history of severe peripheral arterial disease. He continues to smoke on a daily basis. We consulted Dr. Flores of Vascular Services at that time. He ultimately underwent a right femoral to qyxxk-[id number]-bfdl popliteal artery bypass graft on 09/18/2016. At that point in time, it was recommended that he go to a rehab facility, however, he refused and ultimately he was discharged home. He presented to our hospital with worsening right foot pain. Through this hospital course, he underwent an MRI which did note gangrene/osteomyelitis in the 2nd and 4th toe. Services consult include Infectious Disease for antibiotic management as well as Podiatry services. This morning, the patient will be undergoing amputation of 2nd and 4th toe in regard to the same. At the present time, his current clinical diagnosis: 1. 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 2. Recent right femoral popliteal bypass graft. 3. Severe peripheral arterial disease. 4. Ongoing tobacco use. 5. Failure to thrive. 6. Mild cognitive impairment. 7. Hypertension. 8. History of Crohn disease. DISPOSITION Including possible to rehab and/or further antibiotic management will be Unit #: [id number] #: [id number] Patient: BRUCE CHAVEZ dictated by one of my associates at the time of discharge. Dictated by... Kevin Alex/florecita TD: 10/07/2016 09:20 JOB #: [id number] DISCHARGE SUMMARY Page 1 of 1 X Swathi Rodriguez MD X DISCHARGE SUMMARY
--- NOTE | ~2016-10-03 | CR72 ---
[facility] A Service of [facility] RADIOLOGY TEXT RESULTS PATIENT: BRUCE CHAVEZ LOCATION: [facility] 474-01 : 43 UNIT #: [id number] AGE: [address]: Swathi Rodriguez MD SEX: M ORDER DR: [id number] [facility] [address] [place], [place] [address] [id number] I MR#: [id number] Acc #: [id number] NAME: BRUCE CHAVEZ : 1945 SEX: M STUDY DATE/TIME: 10/04/2016 4:48 UNIT: [facility] ROOM: [facility] STUDY DESCRIPTION: CR Chest Single View Portable Attending Physician: Maricruz Robins M.D. Ordering Physician: Maricruz Robins M.D. Primary Care Physician: Generic Doctor Not In System MEDICAL IMAGING REPORT This report is preliminary unless electronic signature is present EXAM Frontal chest. 10/04/2016 INDICATIONS Repositioning of a right-sided PICC line. TECHNIQUE Frontal chest compared with 0432 hours same date FINDINGS The right-sided PICC line has been retracted and the tip is now at the level of the subclavian vein. No pneumothorax. No other significant interval change from 0432 hours same date. IMPRESSION 1. The tip the PICC line has been retracted and is now at the level of subclavian vein on the right. There is no pneumothorax. No other significant interval change from 0432 hours same day. Dictated by... Hilton Andrews M.D. THIS IS AN ELECTRONICALLY VERIFIED REPORT Hilton Andrews M.D. at 10/04/2016 10:02 PM Lucille TD: 10/04/2016 07:52 JOB #: [id number] MEDICAL IMAGING REPORT Page 1 of 1 COPY
--- NOTE | ~2016-10-03 | OR ---
Unit #: [id number] #: [id number] Patient: BRUCE CHAVEZ [id number] [address] [address] [id number] I MR#: [id number] NAME: BRUCE CHAVEZ ROOM: [facility] Date of Procedure: 10/07/2016 Admission Date: 10/03/2016 Surgeon: Danny Gomez D.P.M. : 1945 Attending Physician: John Heath M.D. Primary Care Physician: Generic Doctor Not In System OPERATIVE REPORT RESIDENT Josias Antony, PGY-3. PREOPERATIVE DIAGNOSES 1. Gangrenous changes to the right second and fourth toes osteomyelitis. 2. Peripheral vascular disease, status post bypass procedure. POSTOPERATIVE DIAGNOSES 1. Gangrenous changes to the right second and fourth toes osteomyelitis. 2. Peripheral vascular disease, status post bypass. PROCEDURES PERFORMED 1. Right second toe amputation at the level of the metatarsophalangeal joint. 2. Right fourth toe amputation at the level of the metatarsophalangeal joint. SPECIMENS 1. Right second toe to Microbiology. 2. Right fourth toe to Microbiology. ANESTHESIA General with local anesthetic infiltration. HEMOSTASIS No tourniquet was applied or inflated for the case. ESTIMATED BLOOD LOSS Minimal. COMPLICATIONS None. INDICATIONS FOR PROCEDURE Mr. Chavez is a 71-year-old male with a longstanding history of necrotic changes to the second and fourth digits. The patient does have a history of peripheral vascular disease and did undergo a bypass procedure approximately 1 to 2 months prior. The patient also has a history of a prior fifth partial ray amputation. Functionally, the patient is relatively nonambulatory. He has fixed contracture at his right ankle joint. We discussed with the patient surgical options consisting of a transmetatarsal amputation versus isolated resection of the second and Unit #: [id number] #: [id number] Patient: BRUCE CHAVEZ fourth digits. It is felt that at this time he would be unlikely to heal from a transmetatarsal amputation given his fixed ankle equinus. Therefore, we have recommended he undergo isolated amputations of the second and fourth digits. The patient is agreeable to this plan. He does understand that with his history of peripheral vascular disease and somewhat questionable blood flow to the level of the toes that he may be unable to heal at this level of surgery. He accepts this risk. The patient does understand the procedure to be performed today as well as potential risks and complications involved. No guarantees or assurances have been given or implied. Consent was obtained preoperatively. All questions were answered at length. DESCRIPTION OF PROCEDURE The patient was brought to the operating room and placed on the operative table in the supine position. Anesthesia was induced. A time-out was held and the correct patient, procedure and site were verified and all team members were in agreement. The patient was already on scheduled preoperative antibiotics. The surgical site was then anesthetized using 20 mL of 1:1 mix of 1% lidocaine plain and 0.5% Marcaine plain. The limb was then scrubbed, prepped, and draped in the usual sterile fashion. Tourniquet was not utilized for this case. Attention was then directed to the dorsal aspect of the second toe, which was noted to have a full-thickness wound at the dorsal aspect of the proximal interphalangeal joint with proximal phalanx exposed. A racquet-type incision was then made overlying the digit circumscribing the entire toe. The incision was made in a full-thickness fashion and carried down to the level of bone. Dissection was then carried down to the level of the second metatarsophalangeal joint. The toe was then sharply disarticulated at this level and passed from the operative field to be sent to Microbiology for culture and sensitivities. Throughout dissection, good bleeding was noted from the skin edges. No abscess or purulence was appreciated. The second metatarsal head appeared free of infection. The wound was then debulked including excision of the flexor and extensor tendons, which were allowed to retract into the foot. The surgical site was then flushed with copious amounts of normal sterile saline. Attention was then directed to the dorsal aspect of the fourth digit, which was noted to be gangrenous from approximately the mid-level of the proximal phalanx to the distal tip of the toe. In a similar manner, a racquet-type incision was made around the base of the fourth digit circumscribing the toe. The incision was made down to the level of bone. The fourth metatarsophalangeal joint was then identified and the toe was sharply disarticulated at this level and passed from the operative field to be sent to Microbiology for examination. During dissection, good bleeding was noted from the skin edges. Again, no purulence or further signs of infection were appreciated. The fourth metatarsal head, while it did have some degenerative changes, was felt to be free of infection. Again, flexor and extensor tendons were excised and allowed to retract into the foot. The surgical site was then flushed with copious amounts of sterile normal saline. We then elected to primarily close both amputation sites. For this purpose, we utilized 3-0 nylon in a retention suture-type fashion as well as simple interrupted fashion to reapproximate the skin edges with care taken to ensure minimal tension was placed on the skin edges. The amputation sites closed down well. A postoperative dressing consisting of Xeroform, 4x4s, Kerlix, and bias wrap was then placed about the right foot. The patient was then awoken from anesthesia. The patient Unit #: [id number] #: [id number] Patient: BRUCE CHAVEZ tolerated the procedure and anesthesia well. The patient was transferred from the operating room to the recovery room with vital signs stable and vascular status intact to the right foot. Dictated by... Josias Antony M.D. for Danny Gomez D.P.M. KT/florecita TD: 10/08/2016 03:42 JOB #: [id number] OPERATIVE REPORT Page 1 of 1 X X PROCEDURE OPERATIVE NOTE
--- NOTE | ~2016-10-03 | EKG ---
PATIENT: BRUCE CHAVEZ UNIT #: [id number] Ventricular Rate: 47 BPM Atrial Rate: 47 BPM P-R Interval: 214 ms QRS Duration: 100 ms Q-T Interval: 538 ms QTC Calculation(Bezet): 476 ms P Corbett: 68 degrees Calculated R Corbett: -41 degrees Calculated T Corbett: 99 degrees Diagnosis Line: Sinus bradycardia with 1st degree A-V block Diagnosis Line: Left axis deviation Diagnosis Line: Poor R wave progression questionable lead position Diagnosis Line: or body habitus Prolonged QT Diagnosis Line: Abnormal ECG Diagnosis Line: When compared with ECG of 13-SEP-2016 13:34, Diagnosis Line: Vent. rate has decreased BY 24 BPM Diagnosis Line: Criteria for Inferior infarct are no longer Diagnosis Line: Present Diagnosis Line: Serial changes of Septal infarct Present Diagnosis Line: Confirmed by BIGG FLETCHER MD ([id number]) on 10/03/2016 Diagnosis Line: 9:25:02 PM INTERPRETING MD: CHANCE RYAN
--- NOTE | ~2016-10-03 | CR127 ---
[facility] A Service of [facility] RADIOLOGY TEXT RESULTS PATIENT: BRUCE CHAVEZ LOCATION: [facility] : 43 UNIT #: [id number] AGE: [address]: Rosendo Fan MD SEX: M ORDER DR: [id number] [facility] [address] [place], [place] [address] [id number] MR#: [id number] Acc #: [id number] NAME: BRUCE CHAVEZ : 1945 SEX: M STUDY DATE/TIME: 10/03/2016 15:17 UNIT: [facility] ROOM: STUDY DESCRIPTION: CR Foot Complete Min 3 View Rt Attending Physician: Rosendo Fan M.D. Ordering Physician: Rosendo Fan M.D. Primary Care Physician: Generic Doctor Not In System MEDICAL IMAGING REPORT This report is preliminary unless electronic signature is present EXAM Right foot 3 views 10/03/2016 INDICATIONS 71-year male with right foot pain for 2-3 weeks. COMPARISON STUDIES No comparisons FINDINGS There has been prior amputation at the level of the proximal fifth metatarsal. Osteopenia. Vascular calcifications. No evidence of acute fracture. Soft tissue swelling of the dorsum of the foot. IMPRESSION Osteopenia. No definite acute fracture. Partial resection of the fifth metatarsal. Dictated by... Juan Chacon M.D. THIS IS AN ELECTRONICALLY VERIFIED REPORT Juan Chacon M.D. at 10/03/2016 4:31 PM Jo TD: 10/03/2016 15:56 JOB #: [id number] MEDICAL IMAGING REPORT Page 1 of 1 COPY
[~2016-10-03 15:10] MED LIST changes: +ATORVASTATIN CA80 MG PO; +COUMADIN3 MG PO; +DELTASONE20 MG PO; +IMDUR-ER60 M1 PO; +NORCO 10/3251 TAB PO; +TYL325 PO
[2016-10-03 15:35] LABS: BASOPHIL# 0.1 X10e3 (0-0.3); BASOPHIL% 1.3 % (0-2.5); EOSINOPHIL% 0.3 % (0.0-7.0); HEMATOCRIT 38.8 % (38.0-50.0); HEMOGLOBIN 12.5 gm/dL (13.0-16.0); LYMPHOCYTE# 1.7 X10e3 (1.0-3.5); LYMPHOCYTE% 23.6 % (17.0-45.0); MEAN CELL VOLUME 96.9 FL (83-96); MEAN CORPUSCULAR HEMOGLOBIN 31.2 PG (28-34); MEAN CORPUSCULAR HGB CONC 32.2 g/dL (30-36); MEAN PLATELET VOLUME 9.1 FL (6.5-11.5); MONOCYTE# 0.5 X10e3 (0-1.0); MONOCYTE% 6.6 % (3.0-12.0); NEUTROPHIL# 4.8 X10e3 (1.5-7.1); NEUTROPHIL% 68.2 % (40-75); PLATELET COUNT 186 X10e3 (140-420); RED BLOOD COUNT 4.01 X10e (3.90-5.60); RED CELL DISTRIBUTION WIDTH 19.4 % (11.0-15.5); WHITE BLOOD COUNT 7.1 X10e3 (4.0-10.5)
[2016-10-03 15:49] LABS: DIFF IND NO
[2016-10-03 15:50] LABS: BUN/CREATININE RATIO 13.63; CALCIUM SERUM 8.9 mg/dL (8.4-10.2); CREATININE SERUM 1.1 mg/dL (0.6-1.4); GLOM FILT RATE Estimated 76.8 mL/min (>60); POTASSIUM 4.4 mmol/L (3.5-5.1)
[2016-10-03 19:48] LABS: INR 1.1
[2016-10-03 19:56] LABS: PROTHROMBIN TIME (PATIENT) 11.6 SECONDS (9.6-11.5)
[2016-10-04 15:28] LABS: INR 1.2; PROTHROMBIN TIME (PATIENT) 12.7 SECONDS (9.6-11.5)
[2016-10-04 15:39] LABS: ALBUMIN SERUM 2.7 g/dL (3.5-5.0); BILIRUBIN,TOTAL 0.8 mg/dL (0.2-2.0); CALCIUM SERUM 8.2 mg/dL (8.4-10.2); GLOM FILT RATE Estimated 86.2 mL/min (>60); PROTEIN TOTAL SERUM 6.1 g/dL (6.0-8.3)
[2016-10-04 17:06] LABS: BASOPHIL# 0.1 X10e3 (0-0.3); EOSINOPHIL% 0.7 % (0.0-7.0); HEMATOCRIT 30.2 % (38.0-50.0); LYMPHOCYTE# 1.5 X10e3 (1.0-3.5); LYMPHOCYTE% 25.7 % (17.0-45.0); MEAN CELL VOLUME 95.9 FL (83-96); MEAN CORPUSCULAR HEMOGLOBIN 30.4 PG (28-34); MEAN CORPUSCULAR HGB CONC 31.7 g/dL (30-36); MEAN PLATELET VOLUME 8.7 FL (6.5-11.5); MONOCYTE# 0.6 X10e3 (0-1.0); MONOCYTE% 10.6 % (3.0-12.0); NEUTROPHIL# 3.6 X10e3 (1.5-7.1); PLATELET COUNT 149 X10e3 (140-420); RED BLOOD COUNT 3.15 X10e (3.90-5.60); RED CELL DISTRIBUTION WIDTH 18.6 % (11.0-15.5); WHITE BLOOD COUNT 5.9 X10e3 (4.0-10.5)
[2016-10-04 17:11] LABS: HEMOGLOBIN 9.6 gm/dL (13.0-16.0)
[2016-10-04 17:12] LABS: DIFF IND NO
[2016-10-05 05:35] LABS: BASOPHIL% 0.6 % (0-2.5); EOSINOPHIL% 0.8 % (0.0-7.0); HEMATOCRIT 28.6 % (38.0-50.0); HEMOGLOBIN 9.2 gm/dL (13.0-16.0); LYMPHOCYTE# 1.4 X10e3 (1.0-3.5); MEAN CELL VOLUME 95.1 FL (83-96); MEAN CORPUSCULAR HEMOGLOBIN 30.5 PG (28-34); MEAN CORPUSCULAR HGB CONC 32.1 g/dL (30-36); MEAN PLATELET VOLUME 8.8 FL (6.5-11.5); MONOCYTE# 0.6 X10e3 (0-1.0); MONOCYTE% 10.2 % (3.0-12.0); NEUTROPHIL# 3.4 X10e3 (1.5-7.1); NEUTROPHIL% 62.4 % (40-75); PLATELET COUNT 150 X10e3 (140-420); RED CELL DISTRIBUTION WIDTH 18.6 % (11.0-15.5); WHITE BLOOD COUNT 5.5 X10e3 (4.0-10.5)
[2016-10-05 05:42] LABS: DIFF IND NO
[2016-10-05 06:10] LABS: BUN/CREATININE RATIO 13.63; CREATININE SERUM 1.1 mg/dL (0.6-1.4); GLOM FILT RATE Estimated 76.8 mL/min (>60); POTASSIUM 4.5 mmol/L (3.5-5.1)
[2016-10-06 04:23] LABS: HEMATOCRIT 27.5 % (38.0-50.0); HEMOGLOBIN 8.8 gm/dL (13.0-16.0); MEAN CELL VOLUME 95.6 FL (83-96); MEAN CORPUSCULAR HEMOGLOBIN 30.6 PG (28-34); MEAN PLATELET VOLUME 8.5 FL (6.5-11.5); RED BLOOD COUNT 2.87 X10e (3.90-5.60); RED CELL DISTRIBUTION WIDTH 18.6 % (11.0-15.5); WHITE BLOOD COUNT 5.4 X10e3 (4.0-10.5)
[2016-10-06 04:40] LABS: BUN/CREATININE RATIO 11.66; CALCIUM SERUM 8.2 mg/dL (8.4-10.2); CREATININE SERUM 1.2 mg/dL (0.6-1.4); GLOM FILT RATE Estimated 69.1 mL/min (>60); POTASSIUM 4.9 mmol/L (3.5-5.1)
[2016-10-07 03:17] LABS: HEMATOCRIT 29.1 % (38.0-50.0); HEMOGLOBIN 9.1 gm/dL (13.0-16.0); MEAN CELL VOLUME 96.8 FL (83-96); MEAN CORPUSCULAR HEMOGLOBIN 30.3 PG (28-34); MEAN CORPUSCULAR HGB CONC 31.3 g/dL (30-36); MEAN PLATELET VOLUME 8.9 FL (6.5-11.5); RED BLOOD COUNT 3.01 X10e (3.90-5.60); RED CELL DISTRIBUTION WIDTH 18.4 % (11.0-15.5); WHITE BLOOD COUNT 5.2 X10e3 (4.0-10.5)
[2016-10-07 03:48] LABS: BUN/CREATININE RATIO 10.9; CALCIUM SERUM 8.4 mg/dL (8.4-10.2); CREATININE SERUM 1.1 mg/dL (0.6-1.4); GLOM FILT RATE Estimated 76.8 mL/min (>60); POTASSIUM 4.4 mmol/L (3.5-5.1)
[2016-10-08 04:08] LABS: BASOPHIL# 0.1 X10e3 (0-0.3); EOSINOPHIL# 0.1 X10e3 (0-0.7); HEMATOCRIT 30.9 % (38.0-50.0); HEMOGLOBIN 9.8 gm/dL (13.0-16.0); LYMPHOCYTE% 18.8 % (17.0-45.0); MEAN CELL VOLUME 95.9 FL (83-96); MEAN CORPUSCULAR HEMOGLOBIN 30.5 PG (28-34); MEAN CORPUSCULAR HGB CONC 31.8 g/dL (30-36); MEAN PLATELET VOLUME 9.1 FL (6.5-11.5); MONOCYTE# 0.8 X10e3 (0-1.0); MONOCYTE% 15.9 % (3.0-12.0); NEUTROPHIL# 3.2 X10e3 (1.5-7.1); NEUTROPHIL% 62.3 % (40-75); PLATELET COUNT 224 X10e3 (140-420); RED BLOOD COUNT 3.22 X10e (3.90-5.60); RED CELL DISTRIBUTION WIDTH 18.3 % (11.0-15.5); WHITE BLOOD COUNT 5.1 X10e3 (4.0-10.5)
[2016-10-08 04:11] LABS: DIFF IND NO
[2016-10-08 04:37] LABS: BUN/CREATININE RATIO 13.63; CALCIUM SERUM 8.4 mg/dL (8.4-10.2); CREATININE SERUM 1.1 mg/dL (0.6-1.4); GLOM FILT RATE Estimated 76.8 mL/min (>60); POTASSIUM 4.4 mmol/L (3.5-5.1)
[2016-10-09] MEDS ORDERED: CEFTRIAXONE2 GM IV (12:22)
[2016-10-09] MEDS ORDERED: PERCOCET10 (12:24)
[2016-10-09] MEDS ORDERED: AMIODARONE PO (17:27)
== END 2016-10-09 19:31 | disposition home health service (06) | DRG 255 ==
LOC: CED 15:10 → CEDOF 17:15 → C4C 21:47
PROVIDERS: Emergency Medicine; Family Medicine; Podiatrist Foot & Ankle Surgery
PROC: 0Y6V0Z0 Detachment at Right 4th Toe, Complete, Open Approach (ICD-10-PCS; 2016-10-07)
PROC: 0Y6R0Z0 Detachment at Right 2nd Toe, Complete, Open Approach (ICD-10-PCS; principal; 2016-10-07 08:30)
DX: I73.9 Peripheral vascular disease, unspecified (principal); E43 Unspecified severe protein-calorie malnutrition; G92 Toxic encephalopathy; K50.90 Crohn's disease, unspecified, without complications; M86.8X7 Other osteomyelitis, ankle and foot; Z68.1 Body mass index [BMI] 19.9 or less, adult; F17.210 Nicotine dependence, cigarettes, uncomplicated; G31.84 Mild cognitive impairment of uncertain or unknown etiology; I10 Essential (primary) hypertension; Z79.01 Long term (current) use of anticoagulants; Z82.49 Family history of ischemic heart disease and other diseases of the circulatory system; Z84.89 Family history of other specified conditions
CPT/HCPCS: 71010; 73630; 73720; 80048; 80053; 80202; 85025; 85027; 85610; 85652; 86140; 87040; 87070; 87077; 87186; 87205; 88305; 88311; 93005; 99285; A9577; J0696; J2270; J2405; J2543; J2997; J3010; J3370

== ENCOUNTER 2016-11-18 00:32 | Inpatient (IN) | payer OTHER ==
--- NOTE | ~2016-11-18 | FU ---
[facility] Nutrition Therapy DATE: 11/26/16 Patient: BRUCE SCOTT Physician: CARLYLE Address: [address] [place] [address] STREET Room/Bed: [address] [place] [address], Zip: [place] [address] Admit Date: 11/18/16 Date of : 41 Height: 6 0 Weight: 133 60.7 NUTRITION MONITORING/FOLLOW-UP: Reason: PT SEEN FOR FOLLOW-UP DX: BOWEL OBSTRUCTION Anthropometrics: 6'0", WT: 133# (60 KG), BMI: 18.0 -WEIGHTS HAVE BEEN STABLE SINCE ADMIT Labs: GLU: 125, BUN: 29, CA+:8.3, ALB: 2.7, PHOS: 1.9 (11/23/16) Meds: ZOFRAN, PROTONIX, NACL, FUROSEMIDE, COUMADIN, NOVOLOG, KCL I&O's: 19720/1504, 4 BMs NOTED Skin: ISSUES PREVIOUSLY NOTED Estimated Nutrition Needs: [id number] KCAL 74-93 G PRO Assessment: CHART REVIEWED AND EVENTS NOTED. PT SEEN FOR FOLLOW-UP. PT REPORTS TOLERATING BREAKFAST AND LUNCH TODAY, ON REGULAR DIET. PER RN AND CHART, TPN WAS D/C'D ON 11/24/16. PT REPORTS DRINKING GLUCERNA SHAKES BID BUT REQUESTS HS SNACK DAILY, RD TO ORDER. THIS RD ENCOURAGED SLOW GRADUAL PO INTAKE, PT AGREED. PT REPORTED NO DIET QUESTIONS AT THIS TIME. PLANS IN PLACE FOR PT TO D/C HOME LATER TODAY. RD TO FOLLOW. Dx: INADEQUATE PROTEIN-ENERGY INTAKE R/T CLINICAL DIAGNOSIS AEB PT RECEIVING TPN.-RESOLVED Intervention: 1. REGULAR DIET 2. ENSURE SHAKES TID 3. TPN D/C'D Monitoring, Evaluation and Goals: 1. TPN CONSISTENT W/ESTIMATED NUTRIENT NEEDS-MET 2. GRADUAL WEIGHT GAIN TOWARDS HEALTHY BMI-ACTIVE 3. GI FUNCTION TO WNL-ACTIVE 4. PROMOTE WOUND HEALING-IN PROGRESS 5. LABS WNL-ACTIVE MONITOR: -PO INTAKE/APPETITE -WEIGHTS -SUPPLEMENT INTAKE Recommendations: [facility] Nutrition Therapy DATE: 11/26/16 Patient: BRUCE CHAVEZ Physician: CARLYLE Address: [address] [place] [address] STREET Room/Bed: [address] [place] [address], Zip: [place] [address] Admit Date: 11/18/16 Date of : [birth year] Height: 6 0 Weight: 133 60.7 1. CONTINUE TO ENCOURAGE ADEQUATE PO INTAKE. IF PT TO HAVE GI ISSUES, PLEASE CHANGE DIET ORDER TO LOW FIBER/GI SOFT 2. PLEASE ORDER HS SNACK PER PT REQUEST FOR ADDITIONAL KCAL AND PROTEIN 3. CONTINUE TO OBTAIN WEIGHTS q 3 DAYS FOR MONITORING PURPOSES, PT UNDERWEIGHT RD WILL F/U PER PROTOCOL PT IS MODERATELY COMPROMISED Respectfully, KENYETTA LOTT MS, RD, LD Food and Nutritional Services [facility] cc: client file
--- NOTE | ~2016-11-18 | CR4 ---
[facility] A Service of [facility] RADIOLOGY TEXT RESULTS PATIENT: BRUCE CHAVEZ LOCATION: [facility] 568-01 : [birth year] UNIT #: [id number] AGE: [address]: Rosendo Rebolledo MD SEX: M ORDER DR: [id number] [id number] [place], [place] [address] [id number] I MR#: [id number] Acc #: [id number] NAME: BRUCE CHAVEZ : 1945 SEX: M STUDY DATE/TIME: 11/22/2016 13:00 UNIT: [facility] ROOM: [facility] STUDY DESCRIPTION: CR Abdomen Flat Upright or Dec Attending Physician: Rosendo Rebolledo M.D. Ordering Physician: Rosendo Rebolledo M.D. Primary Care Physician: No Primary Care Physician MEDICAL IMAGING REPORT This report is preliminary unless electronic signature is present EXAM Abdomen supine and upright 11/22/2016 1300 hours CLINICAL HISTORY 71-year-old man with abdominal pain, nausea and vomiting with distension. Small bowel obstruction for followup. COMPARISON Small bowel follow-through 11/20/2016. FINDINGS Supine and upright views of the abdomen demonstrate a mild gaseous distension of loops of small bowel in the central abdomen. The oral contrast material administered 11/20/2016 now opacifies the entire colon from cecum to rectum. There is no retained contrast within the small bowel which suggests that the obstruction is intermittent or incomplete. There is no free air seen. IMPRESSION All of the oral contrast material which was present in the small bowel in the prior small bowel follow-through is now present in the colon extending almost contiguously from the cecum to the rectum. There is no residual contrast in the small bowel which suggests improvement in small bowel obstruction or intermittent small bowel obstruction. There are gas-filled loops of small bowel in the central abdomen. There is no free air or suspicious calcification. Dictated by... Melody Gloria M.D. THIS IS AN ELECTRONICALLY VERIFIED REPORT Melody Gloria M.D. at 11/22/2016 2:27 PM [facility] A Service of [facility] RADIOLOGY TEXT RESULTS PATIENT: BRUCE CHAVEZ LOCATION: [facility] 568-01 : [birth year] UNIT #: [id number] AGE: [address]: Rosendo Rebolledo MD SEX: M ORDER DR: EDMAR/alejandra TD: 11/22/2016 14:00 JOB #: [id number] MEDICAL IMAGING REPORT Page 1 of 1 COPY
--- NOTE | ~2016-11-18 | CO ---
Unit #: [id number] #: [id number] Patient: BRUCE CHAVEZ [id number] [address] [address] [id number] I MR#: [id number] NAME: BRUCE CHAVEZ ROOM: 568 Age: 71 Sex: M Admission Date: 11/18/2016 : 1945 Attending Physician: Rosendo Rebolledo M.D. CONSULTATION REPORT REASON FOR CONSULTATION Small bowel obstruction, Crohn disease. HISTORY OF PRESENTING ILLNESS The patient is a very pleasant 71-year-old gentleman, who is well known to our practice for recurrent small-bowel obstruction likely secondary to Crohn disease. He has had several small bowel resections in the past. He presents with a 2-day history of no bowel movement, no flatus, distention, and abdominal pain. The patient at this time denies any vomiting and refuses an NG tube. PAST MEDICAL HISTORY Crohn disease; peripheral artery disease, status post fem-pop; hypertension; history of spider bite, requiring a skin graft; history of MN; previous exploratory laparotomy with LSA; small bowel resection on two occasions; as well as PEG placement. ALLERGIES None known. HOME MEDICATIONS Protonix, Norvasc, amiodarone, Imdur, Tylenol, Coumadin, metoprolol, atorvastatin, and [place]. FAMILY HISTORY Notable for heart disease and peripheral vascular disease. SOCIAL HISTORY The patient lives at home with his sister. Continues to smoke daily. Denies alcohol or illicit drugs. REVIEW OF SYSTEMS A complete 10-point reviewed and negative except as mentioned in the HPI. PHYSICAL EXAMINATION GENERAL: The patient is a very pleasant 71-year-old male, currently in no acute distress. VITAL SIGNS: Temperature is 98.2, pulse is 65, respirations 18, blood pressure is 155/63. HEENT: PERRLA. NECK: Supple. CARDIAC: S1, S2. LUNGS: Clear to auscultation. ABDOMEN: Distended and tender. Unit #: [id number] #: [id number] Patient: BRUCE CHAVEZ NEUROLOGIC: The patient is alert, awake, and oriented x3. DIAGNOSTIC STUDIES IMAGING STUDIES: A CT of abdomen and pelvis was completed, showed high-grade mid small bowel obstruction as well as possible microperforation. LABORATORY RESULTS: White count 9.3; hemoglobin is 10.8, it was 14.2 yesterday possibly delusional; hematocrit 32.9, and platelets are 211. BUN and creatinine are 28 and 1.2 respectively, otherwise chemistry is fine. ASSESSMENT AND PLAN 1. Small bowel obstruction due to Crohn disease. We discussed possible surgical options per LSA recommendations. Continue supportive care for now. 2. Peripheral vascular disease, followed by Dr. Flores, status post recent fem-pop. 3. Hypertension. Thank you for this interesting consult. We will continue to follow along. Dictated by... Jodi Pitts A.P.R.N. for Kevin Boggs/florecita TD: 11/20/2016 05:58 JOB #: [id number] CONSULTATION REPORT Page 1 of 1 X X CONSULTATION REPORT
--- NOTE | ~2016-11-18 | DS ---
Unit #: [id number] #: [id number] Patient: BRUCE CHAVEZ [id number] [address] [place], [place] [address] [id number] I MR#: [id number] NAME: BRUCE CHAVEZ ROOM: 568 Age: 71 Sex: M Admission Date: 11/18/2016 : 1945 Discharge Date: 11/25/2016 Attending Physician: Rosendo Rebolledo M.D. Primary Care Physician: No Primary Care Physician DISCHARGE SUMMARY DIAGNOSIS Crohn ileitis. HOSPITAL COURSE The patient is a 71-year-old gentleman who presented with right lower quadrant abdominal pain. Workup was consistent with Crohn inflammation. He was admitted to the hospital, started on IV antibiotics. Gastroenterology was consulted to assist. Cardiology was also involved. He was started on anticoagulation. Subsequent small bowel follow through did not show an obstruction. He improved with pain, again tolerating a regular diet without difficulty. DISPOSITION Patient will be discharged home in good condition. He is to follow a regular diet as tolerated. Activity level discussed. He is to follow up with general surgery on a p.r.n. basis. His medications are his regular home medications and GI medicine is to address his home Crohn's and GI medicine. Dictated by... Kevin Jewell/yonathan TD: 11/26/2016 08:06 JOB #: [id number] DISCHARGE SUMMARY Page 1 of 1 X Dimitri Lorenzo MD X DISCHARGE SUMMARY
--- NOTE | ~2016-11-18 | CO ---
Unit #: [id number] #: [id number] Patient: BRUCE CHAVEZ [id number] [facility] [address] [facility]. [place], [place] [address] [id number] I MR#: [id number] NAME: BRUCE CHAVEZ ROOM: 568 Age: 71 Sex: M Admission Date: 11/18/2016 : 1945 Attending Physician: Rosendo Rebolledo M.D. Primary Care Physician: No Primary Care Physician Consultation Date: 11/18/2016 CONSULTATION REPORT REASON FOR CONSULT Possible atrial fibrillation/atrial flutter. HISTORY OF PRESENT ILLNESS This is a 71-year-old -Pakistani male previously known to our group. The patient was seen at [facility] in September 2016 for preoperative clearance for ischemic gangrene of the right lower extremity. The patient was cleared for surgery and underwent a right femoral to below knee popliteal artery bypass on 09/18/2016. He subsequently required amputation of the right second toe and right fourth toe due to osteomyelitis on October 07, 2016. Additional past medical history includes paroxysmal atrial fibrillation, hypertension, PAD with history of vascular stents, Crohn disease and active tobacco abuse. The patient had a cardiac catheterization in September [address] Moon which revealed single vessel disease in the second obtuse marginal of the left circumflex. It was possibly cannulated due to an old myocardial infarction. He was managed medically. Ejection fraction was mildly low at 45% to 50%. All other vessels were normal. He previously had a cardiac catheterization in 2013 with unsuccessful dilation of the obtuse marginal one. He was just discharged from the hospital October 09, 2016, after toe amputations at the level of the metatarsal joint. He was sent home on amiodarone, Coumadin and a beta emelia. He came back to the hospital on November 18, 2016, with complaints of abdominal pain. The pain is generalized and associated with nausea, vomiting and some diarrhea. There are no reports of fever or chills. He denies chest pain, shortness of breath, dizziness, palpitations or syncope. There are no reports of lower extremity edema. He states that he has been taking his medications. In the emergency department, his pulse was 65, respirations 18, blood pressure 137/68, and O2 saturation 98% on room air. He was given Dilaudid, Reglan and Flagyl. He was started on normal saline at 125 mL/hour. EKG showed some motion artifact and there was concern for an atrial arrhythmia. However, upon further review, it is sinus rhythm. There is no evidence of congestive heart failure on exam and, again, the patient denies chest pain. PAST MEDICAL HISTORY 1. Single vessel coronary artery disease, status post cardiac catheterization September 13, 2016, which revealed inferior basal akinesis. Ejection fraction of 45% to 50%. Moderate to severe aortic regurgitation with a three cusp aortic valve. 99% stenosis of the posterior division of the first marginal branch of the left circumflex, probably a recanalized vessel following an old inferior wall myocardial infarction. Medical management. Unit #: [id number] #: [id number] Patient: BRUCE CHAVEZ 2. Previous cardiac catheterization 2013 with 100% OM1 with unsuccessful PCI and stent. 3. 2D echocardiogram in 2015 revealed ejection fraction of 45%. Moderate aortic regurgitation. Mild tricuspid and mitral regurgitation. 4. Peripheral artery disease, status post right femoral to below knee popliteal artery bypass on 09/18/2016. 5. History of right superficial artery stent. 6. Crohn disease, status post exploratory laparotomy and segmental small bowel resection May 12, 2016. 7. Hypertension. 8. Paroxysmal atrial fibrillation, now in sinus rhythm. 9. Chronic systolic congestive heart failure. 10. Chronic anticoagulation with Coumadin. 11. Possible COPD. 12. Active tobacco abuse. PAST SURGICAL HISTORY 1. Cardiac catheterization. 2. Exploratory laparotomy with small bowel resection. 3. Right leg surgery with multiple skin grafts secondary to recluse spider bite. 4. PEG tube placement which was removed. 5. Right femoral to below knee popliteal artery bypass. 6. Right second toe amputation with right fourth toe amputation. HOME MEDICATIONS 1. Protonix 40 mg p.o. daily. 2. Norvasc 5 mg p.o. daily. 3. Imdur ER 60 mg p.o. daily. 4. Acetaminophen 650 mg p.o. every six hours p.r.n. for pain. 5. Coumadin 3 mg p.o. daily. 6. Metoprolol tartrate 25 mg p.o. b.i.d. 7. Lipitor 40 mg p.o. q. h.s. 8. Percocet 10/325 mg, one tablet p.o. q.4 hours p.r.n. for pain. 9. Amiodarone 200 mg p.o. daily. ALLERGIES No known drug allergies. SOCIAL HISTORY The patient lives in a private residence. He is an active smoker. He is only smoking a couple cigarettes per day. He denies any alcohol or illicit drug use. FAMILY HISTORY Significant for heart disease. His mother had coronary artery disease as well as vascular disease requiring bilateral amputations. A sister has heart disease. REVIEW OF SYSTEMS A ten point review of systems is negative except for details noted above in HPI. PHYSICAL EXAMINATION VITAL SIGNS: Temperature 98.6, pulse 64, blood pressure 145/67. CONSTITUTIONAL: This is a 71-year-old -Pakistani male in no acute distress. Unit #: [id number] #: [id number] Patient: BRCUE CHAVEZ SKIN: Warm and dry. NECK: Supple. No jugular vein distention. No hepatojugular reflux. Normal carotid upstrokes. No carotid bruits auscultated. HEART: S1 and S2. Regular rate and rhythm. No murmurs, rubs or gallops. LUNGS: Bilateral breath sounds have good air entry throughout all lung [place]. Respirations even and unlabored. No rales, rhonchi, or wheezes. ABDOMEN: Soft but slightly tender. Positive bowel sounds auscultated x4 quadrants. No ascites noted. EXTREMITIES: Bilateral extremities have no pretibial pitting edema. DP and PT pulses 2+. Capillary refill less than three seconds. DIAGNOSTIC STUDIES LABORATORY: Sodium 135, potassium 3.3, chloride 103, CO2 22, BUN 19, creatinine 1.3, glucose 152. White blood cell count 8, hemoglobin 14.2, hematocrit 45.1, platelets 274. INR 1.5. Urinalysis with trace leukocytes. IMAGING: Chest x-ray reveals stable cardiomegaly. No acute findings. CT of the abdomen and pelvis without contrast reveals high grade mid small bowel obstruction secondary to an inflamed loop of bowel in the left mid abdomen. This is just proximal to the small bowel anastomosis in the pelvis. There are a few tiny bubbles of gas in the left mid abdomen in the mesentery. This would suggest a microperforation. No evidence of an abscess. Small amount of free fluid in the abdomen and pelvis. High density material in the gallbladder with probable tiny layering gallstones. Extensive atherosclerotic disease. Normal appendix. CARDIOVASCULAR: Electrocardiogram reveals sinus rhythm with a first degree AV block. Leftward axis deviation. Deep T wave inversion in the lateral leads as well as V4. QTC 499 msec. IMPRESSION 1. Chronic systolic congestive heart failure, compensated. 2. History of atrial fibrillation, now in sinus rhythm. 3. Small obtuse marginal of the left circumflex occluded. 4. Moderate left ventricular dysfunction with an ejection fraction of 45%. 5. Moderate aortic regurgitation. 6. Chronic obstructive pulmonary disease. 7. Peripheral artery disease with recent right toe amputation 10/2016. 8. Previous right femoral to bilateral knee popliteal artery bypass September 18, 2016. 9. Crohn disease with small bowel obstruction. PLAN 1. The patient presented to the hospital with complaints of abdominal pain. He was admitted for further observation and surgery was consulted. 2. There is no evidence of congestive heart failure on exam or complaints of chest pain. 3. Telemetry and EKG reveal sinus rhythm. The patient will be continued on present meds. He is okay to proceed with exploratory laparotomy if needed with low to moderate risk from a cardiovascular standpoint. No new workup is needed at this time. The patient has been advised to refrain from tobacco abuse. Unit #: [id number] #: [id number] Patient: BRUCE CHAVEZ Dictated by... Kasia Acuña APRN for Kevin Shaver TD: 11/21/2016 07:37 JOB #: [id number] CONSULTATION REPORT Page 1 of 1 X X CONSULTATION REPORT
--- NOTE | ~2016-11-18 | EKG ---
PATIENT: BRUCE CHAVEZ UNIT #: [id number] Ventricular Rate: 60 BPM Atrial Rate: 234 BPM QRS Duration: 98 ms Q-T Interval: 468 ms QTC Calculation(Bezet): 468 ms P [place]: 94 degrees Calculated R [place]: -38 degrees Calculated T [place]: 89 degrees Diagnosis Line: Normal sinus rhythm Diagnosis Line: Left axis deviation Diagnosis Line: Left ventricular hypertrophy with repolarization Diagnosis Line: abnormality Diagnosis Line: Inferior infarct , age undetermined Diagnosis Line: Abnormal ECG Diagnosis Line: When compared with ECG of 03-OCT-2016 18:17, Diagnosis Line: No significant change was found Diagnosis Line: Criteria for Septal infarct are no longer Present Diagnosis Line: Diagnosis Line: Confirmed by LEWIS WILKINS MD ([id number]) on 11/19/2016 Diagnosis Line: 5:42:36 AM INTERPRETING MD: CLAUDETTE RYNA
--- NOTE | ~2016-11-18 | CR72 ---
[facility] A Service of [facility] & [facility] RADIOLOGY TEXT RESULTS PATIENT: BRUCE CHAVEZ LOCATION: [facility] 568-01 : 43 UNIT #: [id number] AGE: [address]: Rosendo Rebolledo MD SEX: M ORDER DR: [id number] [facility] [address] [place], [place] [address] [id number] I MR#: [id number] Acc #: [id number] NAME: BRUCE CHAVEZ : 1945 SEX: M STUDY DATE/TIME: 11/18/2016 20:10 UNIT: [facility] ROOM: [facility] STUDY DESCRIPTION: CR Chest Single View Portable Attending Physician: Rosendo Rebolledo M.D. Ordering Physician: Rosendo Rebolledo M.D. Primary Care Physician: Primary Care Physician No MEDICAL IMAGING REPORT This report is preliminary unless electronic signature is present EXAM Portable chest HISTORY PICC placement and congestion today. FINDINGS Left arm approach PICC tip is in the mid to low SVC 3 cm above the junction of the SVC and right atrium. Mild linear atelectasis or scarring in the left base. No airspace infiltrates. Superior subluxation of the lateral right clavicle relative to the acromion. Dictated by... Mitchell Zhao M.D. THIS IS AN ELECTRONICALLY VERIFIED REPORT Mitchell Zhao M.D. at 11/19/2016 12:58 PM DFL/janine TD: 11/19/2016 08:55 JOB #: [id number] MEDICAL IMAGING REPORT Page 1 of 1 COPY
--- NOTE | ~2016-11-18 | CT4 ---
[facility] A Service of [facility] & [facility] / [facility] RADIOLOGY TEXT RESULTS PATIENT: BRUCE CHAVEZ LOCATION: [facility] [place] [facility] 568-01 : 43 UNIT #: [id number] AGE: [address]: Rosendo Rebolledo MD SEX: M ORDER DR: [id number] [facility] [address] [place], [place] [address] [id number] I MR#: [id number] Acc #: [id number] NAME: BRUCE CHAVEZ : 1945 SEX: M STUDY DATE/TIME: 11/18/2016 03:37 UNIT: [facility] [place] [facility] ROOM: 568 STUDY DESCRIPTION: CT Abd and Pelv Wo Cont Attending Physician: Rosendo Rebolledo M.D. Ordering Physician: Manoj Saini M.D. Primary Care Physician: Primary Care Physician No MEDICAL IMAGING REPORT This report is preliminary unless electronic signature is present EXAM Abdomen and pelvis CT 11/18/2016 at 03:37 INDICATION Lower abdominal pain with nausea and vomiting since noon yesterday. Prior history of bowel obstruction. TECHNIQUE Axial noncontrast images were obtained through the abdomen and pelvis. Multiplanar reformats were obtained. Comparison made with 09/12/2016. This CT exam was performed with one or more of the following radiation dose reduction techniques: automatic exposure control, adjustment of mA and/or kV according to patient size, and iterative reconstruction. FINDINGS ABDOMEN: The heart is enlarged. There is some atelectasis or scarring in the lung bases. High-density material is noted in the gallbladder and may reflect tiny gallstones. No renal or ureteral stones are identified, and there is no hydronephrosis. There is extensive atherosclerotic disease, including within both kidneys. There is a small amount of ascites. GI tract evaluation is limited without oral contrast. The colon and is grossly normal. There are multiple distended small bowel loops in the abdomen and pelvis. One of the larger loops as in the left mid abdomen. It contains feculent material and measures up to 4.9 cm in diameter. This is contiguous with dilated loops in the pelvis. Additionally, there is clearly an inflamed thickened small bowel loop in the left side of the abdomen. This thickened loop of bowel in the left mid abdomen appears to be the obstructing point. There are a few tiny bubbles of free air in the small bowel mesentery in the left mid abdomen. This would suggest a microperforation. No other free air is seen in the abdomen or pelvis. [facility] A Service of [facility] RADIOLOGY TEXT RESULTS PATIENT: BRUCE CHAVEZ LOCATION: [facility] [place] [facility] 568-01 : 43 UNIT #: [id number] AGE: [address]: Rosendo Rebolledo MD SEX: M ORDER DR: PELVIS: The appendix is normal. The lower colon is decompressed and normal. Distal small bowel is normal. There is diffuse atherosclerotic disease. There is a small amount of free fluid. There are no lower ureteral stones. Bladder is normal. IMPRESSBON 1. There is a high-grade mid small bowel obstruction secondary to an inflamed loop of bowel in the left mid abdomen. This does appear to be the point of obstruction. This is just proximal to a small bowel anastomoses in the pelvis. The proximal jejunum is normal, as is the distal ileum. This may be related to the patient's history of Crohn disease. 2. There are a few tiny bubbles of gas in the left mid abdomen in the mesentery. This would suggest a microperforation. No evidence of an abscess. No other free air. 3. Small amount of free fluid in the abdomen and pelvis. 4. High density material in the gallbladder is probably tiny layering gallstones. 5. Extensive atherosclerotic disease. 6. Normal appendix. Dictated by... Rosendo Velazco Jr., M.D. THIS IS AN ELECTRONICALLY VERIFIED REPORT Rosendo Velazco Jr., M.D. at 11/18/2016 9:24 PM GIO/jeremías TD: 11/18/2016 21:18 JOB #: [id number] MEDICAL IMAGING REPORT Page 1 of 1 COPY
--- NOTE | ~2016-11-18 | CO ---
Unit #: [id number] #: [id number] Patient: BRUCE CHAVEZ [id number] [address] [place], [place] [address] [id number] I MR#: [id number] NAME: RBUCE CHAVEZ ROOM: 568 Age: 71 Sex: M Admission Date: 11/18/2016 : 1945 Attending Physician: Rosendo Rebolledo M.D. Primary Care Physician: Primary Care Physician No Consultation Date: 11/18/2016 CONSULTATION REPORT HISTORY OF PRESENT ILLNESS Mr. Chavez is a 71-year-old gentleman with a history of Crohn disease, atherosclerotic coronary artery disease, peripheral vascular disease. He has had recent vascular surgery with amputation of some digits on the right foot. He also has a history of Crohn disease and has had several small bowel resections in the past. He presents with lower abdominal pain similar to when he had small bowel obstructions previously. CT scan was concerning for small bowel obstruction with an inflamed loop of bowel in the mid abdomen. He had a similar presentation in 09/2016 and at that time, a small bowel follow-through showed no obstruction, but dilated loops of small bowel. This inflamed loop being dilated may be at a site of previous anastomosis. The patient said no vomiting and refuses an NG tube. He has recently seen Dr. Flores, who did a right fem rtimu-njn-durb popliteal bypass on the right and he is being followed by Dr. Flores in the office after digit amputation. Wounds are healing adequately, but are still required topical treatment. PAST MEDICAL HISTORY Crohn disease; peripheral arterial disease, status post femoral-popliteal bypass; hypertension; history of spider bite, requiring skin graft; history of possible myocardial infarction; exploratory laparotomy; small bowel resection on two occasions; PEG placement. ALLERGIES No allergies to medication. MEDICATIONS His current medications include Protonix, Norvasc, amiodarone, Imdur, Tylenol, Coumadin, metoprolol, atorvastatin, and [place]. FAMILY HISTORY Heart disease and peripheral vascular disease. SOCIAL HISTORY He lives at home with a sister. He continues to smoke. Denies use of alcohol or recreational drugs. REVIEW OF SYSTEMS No hematemesis, hematochezia, or melena. He has passed flatus, but he has not had any stool recently. PHYSICAL EXAMINATION VITAL SIGNS: Temperature 98.5, pulse 65, respirations 18, blood pressure 137/68. Unit #: [id number] #: [id number] Patient: BRUCE CHAVEZ GENERAL: He is awake, alert, and oriented. HEENT: Unremarkable. CARDIAC: Irregular rhythm. LUNGS: Clear. ABDOMEN: Nondistended. He complains of tenderness and guards, but there is no rebound tenderness. There is no hernia. EXTREMITIES: No edema. In the right foot, he has had two recent digit amputations of the second and fourth digits. The open areas have healing eschar. NEUROLOGIC: Grossly intact. DIAGNOSTIC STUDIES LABORATORY RESULTS: Comprehensive metabolic panel has a potassium of 3.3, otherwise within normal limits. Lipase is less than 10. INR is 1.5. White count 8000 with normal differential, hemoglobin 14.2, platelets 274,000. Urinalysis is negative for infection. IMAGING STUDIES: CT scan as discussed. ASSESSMENT AND PLAN 1. The patient with abdominal pain and probable Crohn's exacerbation with a functional obstruction. The patient refuses an NG tube at this time, but is not vomiting. I am going to start the patient on Flagyl and steroids, and ask Gastroenterology to see the patient. He has had a recent small bowel follow-through, which showed no mechanical obstruction and this is probably a functional obstruction from inflammation. 2. Atherosclerotic coronary artery disease. The patient is in atrial flutter, but does have a controlled rate. I will continue his cardiac medications, put him on monitored bed, and ask the Cardiac Service to see the patient. 3. Peripheral vascular disease. He appears stable from his recent bypass surgery. We will continue local wound care to the right foot. Dictated by... Kevin Shore/florecita TD: 11/18/2016 15:50 JOB #: [id number] CONSULTATION REPORT Page 1 of 1 X Rosendo Rebolledo MD CONSULTATION REPORT
--- NOTE | ~2016-11-18 | A ---
[facility] Nutrition Therapy DATE: 11/20/16 Patient: BRUCE CHAVEZ Physician: CARLYLE Address: [address] [place] [address] Room/Bed: [address] [place] [address], Zip: [place] [address] Admit Date: 11/18/16 Date of : 43 Height: 6 0 Weight: 135 61.5 NUTRITIONAL ASSESSMENT: REASON: Assessed per TPN consult + low BMI Admitting Dx: 71 y/o male admitted with high-grade mid small bowel obstruction and possible microperforation PMH: Small bowel resection x 2, recurrent SBO, PAD, HTN, Crohn's disease, [place], ex-lap, PEG s/p removal Anthropometrics: Ht: 72", Wt: 61.5 kg, BMI: 18.4 (underweight) Labs: Glucose 160, POC 129-159, AST 55, ALT 59, Na/K/Mg WNL, Phos WNL on 11/18, Triglycerides- no new lab Meds: PPI, Zofran, Solu-Cortef, IV Abx, IVF @ 100 ml/hr, TPN + lipids q 72 hours I/O & Bowel function: Last BM 11/17, - flatus, + distension/abdominal pain, no emesis, refusing NGT Skin Integrity: Open wound R knee/coccyx, amputation R 2nd/4th toes, scars noted, no edema Estimated Nutrition Needs: 6896-8055 kcals per day (30-35 kcals/kg) 74-93 g protein per day (1.2-1.5 g/kg) Fluids consistent with kcal needs or per MD Assessment: Chart reviewed, events noted. RD assessing per consult for TPN recs, this patient well known to dietitians, past notes reviewed. Patient has been diagnosed with severe protein calorie malnutrition by RD in past, he is clinically underweight, see PMH. Scored 0 points on the malnutrition risk score, has history of PEG placement s/p removal. Has been on TPN in the past due to Crohn's disease, abdominal sx history including 2 small bowel resections and recurrent SBO. CT scan confirmed high-grade mid SBO with possible microperforation, patient has refused an NGT, is currently NPO. No BM/flatus in 3 days. Standard TPN solution ordered with lipids q 72 hours, starting today. See recs below, will follow hospital course. Dx: Inadequate protein energy intake r/t clinical diagnosis AEB NPO, need for TPN. Intervention: TPN Monitoring, Evaluation and Goals: [facility] Nutrition Therapy DATE: 11/20/16 Patient: BRUCE CHAVEZ Physician: CARLYLE Address: [address] [place] [address] Room/Bed: [address] [place] [address], Zip: [place] [address] Admit Date: 11/18/16 Date of : 43 Height: 6 0 Weight: 135 61.5 1. TPN consistent with estimated nutrition needs. 2. Gradual weight gain towards a healthy BMI range. 3. GI function WNL. 4. Promote wound healing. 5. Labs WNL (glucose, lytes, triglycerides, LFT's). Monitor: Per protocol, criteria to determine if above goals met Recommendations: 1. Start TPN with standard formula 25% dextrose, 5% amino acids @ 20 ml/hr and increase by 10 ml q 8 hours until goal rate of 65 ml/hr is reached. This will provide: 1326 dextrose kcals (GUR = 4.4) 78 g protein (1.3 g/kg) = 1638 total kcals 2. Suggest checking triglycerides with next lab draw. If < 400 mg/dL suggest changing lipids (20% 250 ml) to q 48 hours instead of q 72 hours to help meet kcal needs, providing an extra 500 kcals on lipid days. While receiving lipids q 72 hours the patient will receive on average 8772-6672 total kcals/day over a weeks time, which does not meet his estimated kcal needs. By giving lipids q 48 hours instead he will receive on average 3761-5731 total kcals/day over a weeks time, which better meets his needs. 3. Closely monitor lytes, glucose and triglycerides and replete lytes to WNL prn. The patient may require the addition of insulin noting current hyperglycemia and start of TPN, and since he is on Solu-Cortef. 4. Once medically feasible begin clear liquid diet and advance to GI soft as tolerated. IVF per MD. 5. Please weigh q 3 days for monitoring purposes, as the patient is underweight. 6. Wound care prn. 7. Bowel regimen per MD, continue Zofran prn. RD will follow hospital course Moderate-severe nutrition risk Respectfully, [facility] Nutrition Therapy DATE: 11/20/16 Patient: BRUCE CHAVEZ Physician: CARLYLE Address: [address] [place] [address] Room/Bed: [address], Zip: [place] [address] Admit Date: 11/18/16 Date of : 43 Height: 6 0 Weight: [address], LD [facility] cc: client file
--- NOTE | ~2016-11-18 | EKG ---
PATIENT: BRUCE CHAVEZ UNIT #: [id number] Ventricular Rate: 85 BPM Atrial Rate: 85 BPM P-R Interval: 256 ms QRS Duration: 120 ms Q-T Interval: 420 ms QTC Calculation(Bezet): 499 ms P [place]: 82 degrees Calculated R [place]: -18 degrees Calculated T [place]: 75 degrees Diagnosis Line: Sinus rhythm with 1st degree A-V block Diagnosis Line: Septal infarct , age undetermined Diagnosis Line: ST and T wave abnormality, consider lateral ischemia Diagnosis Line: Abnormal ECG Diagnosis Line: When compared with ECG of 18-NOV-2016 01:29, Diagnosis Line: (unconfirmed) Diagnosis Line: Questionable change in QRS duration Diagnosis Line: Septal infarct is now Present Diagnosis Line: Criteria for Inferior infarct are no longer Diagnosis Line: Present Diagnosis Line: Confirmed by LEWIS WILKINS MD ([id number]) on 11/19/2016 Diagnosis Line: 5:48:34 AM INTERPRETING MD: CLAUDETTE RYAN
--- NOTE | ~2016-11-18 | CR236 ---
[facility] A Service of [facility] & [facility] RADIOLOGY TEXT RESULTS PATIENT: BRUCE CHAVEZ LOCATION: [facility] 568-01 : 43 UNIT #: [id number] AGE: [address]: Rosendo Rebolledo MD SEX: M ORDER DR: [id number] [facility] [address] [place], [place] [address] [id number] I MR#: [id number] #: [id number] NAME: BRUCE CHAVEZ : 1945 SEX: M STUDY DATE/TIME: 11/20/2016 12:06 UNIT: [facility] ROOM: [facility] STUDY DESCRIPTION: CR Small Bowel Sbft W Films Attending Physician: Rosendo Rebolledo M.D. Ordering Physician: Rosendo Rebolledo M.D. Primary Care Physician: Primary Care Physician No MEDICAL IMAGING REPORT This report is preliminary unless electronic signature is present EXAM Small bowel follow-through with fluoroscopy DATE 11/20/2016 HISTORY 71-year-old male with lower abdominal pain, nausea, vomiting. Previous history of bowel obstruction with small bowel surgery. Symptoms present since 11/17/2016. COMPARISON CT abdomen and pelvis without contrast 11/18/2016. FINDINGS Locomotive Supervisor film of the abdomen demonstrates mild to moderate stool within the ascending and transverse colon and multiple mildly dilated small bowel loops in the [id number] abdomen just slightly toward the left of midline. Subsequently, thin contrast was administered orally and overhead radiographs of the abdomen were obtained at 35, 55, 90 minutes, 2 hours 20 minutes no active disease at 3 hours. Contrast is seen within the ascending colon at 3 hours. There are abnormally dilated small bowel loops within the abdomen predominantly in the [id number] abdomen. There is a segmentally abnormally narrowed small bowel segment in the left mid abdomen with regularly regular fold thickening, it may represent active inflammatory change. Subsequently, multiple spot fluoroscopic images were obtained of the abdomen. There is segmentally abnormally narrowed or strictured small bowel loop in the left midabdomen (see online images denoted by arrows) which persists, upstream to which the small bowel loops are dilated. However, even distal to this, there are more dilated small bowel loops and there is thought to be a second area of segmentally narrowed or inflamed small bowel which can only be seen on spot compression images (fluoroscopic images number 4, 5 and 6). However, the [facility] A Service of [facility] RADIOLOGY TEXT RESULTS PATIENT: BRUCE CHAVEZ LOCATION: [facility] 568-01 : 43 UNIT #: [id number] AGE: [address]: Rosendo Rebolledo MD SEX: M ORDER DR: presence of contrast within the colon negates the presence of a complete obstruction at this time. 6 spot fluoroscopic images were obtained, and total fluoroscopy time 1.4 minutes. IMPRESSION Findings consistent with partial small bowel obstruction. There are 2 segmentally narrowed and potentially inflamed loops of small bowel, 1 within the left lower quadrant, another within the midline or right of midline of the abdomen. Please see online images denoted by arrows. However, contrast is seen within the ascending colon at the 3-hour time abby, indicating a complete obstruction at this time. Dictated by... Bethany Lomax M.D. THIS IS AN ELECTRONICALLY VERIFIED REPORT Bethany Lomax M.D. at 11/21/2016 9:40 AM [facility]/isidro TD: 11/20/2016 14:31 JOB #: [id number] MEDICAL IMAGING REPORT Page 1 of 1 COPY
--- NOTE | ~2016-11-18 | CR63 ---
[facility] A Service of [facility] RADIOLOGY TEXT RESULTS PATIENT: BRUCE CHAVEZ LOCATION: [facility] 568 : 43 UNIT #: [id number] AGE: [address]: Rosendo Rebolledo MD SEX: M ORDER DR: [id number] [facility] [address] [place], [place] [address] [id number] I MR#: [id number] Acc #: [id number] NAME: BRUCE CHAVEZ : 1945 SEX: M STUDY DATE/TIME: 11/22/2016 13:00 UNIT: [facility] ROOM: [facility] STUDY DESCRIPTION: CR Chest 2 View Attending Physician: Rosendo Rebolledo M.D. Ordering Physician: Rosendo Rebolledo M.D. Primary Care Physician: Primary Care Physician No MEDICAL IMAGING REPORT This report is preliminary unless electronic signature is present EXAM Chest 2 views 11/22/2016 1300 hours HISTORY 71-year-old man with shortness of air today, history of lower abdominal pain and bowel obstruction. COMPARISON 11/18/2016. FINDINGS Upright PA and lateral views of the chest demonstrate stable mild cardiomegaly and tortuous atherosclerotic aorta. There is a left PICC line with tip in mid SVC without change. The lungs are fairly well expanded. Patchy density at the lung bases is improved but not resolved. No effusions. IMPRESSION Slight improvement in patchy bibasilar airspace changes which are not completely resolved. There is no pleural effusion. No pneumothorax or free air in the abdomen. Dictated by... Melody Gloria M.D. THIS IS AN ELECTRONICALLY VERIFIED REPORT Melody Gloria M.D. at 11/22/2016 2:27 PM EDMAR/megan TD: 11/22/2016 13:58 JOB #: [id number] [facility] A Service of [facility] & [facility] RADIOLOGY TEXT RESULTS PATIENT: BRUCE CHAVEZ LOCATION: [facility] 568 : 43 UNIT #: [id number] AGE: [address]: Rosendo Rebolledo MD SEX: M ORDER DR: MEDICAL IMAGING REPORT Page 1 of 1 COPY
--- NOTE | ~2016-11-18 | FU ---
[facility] Nutrition Therapy DATE: 11/22/16 Patient: BRUCE CHAVEZ Physician: CARLYLE Address: [address] [place] [address] Room/Bed: [address] [place] [address], Zip: [place] [address] Admit Date: 11/18/16 Date of : 43 Height: 6 0 Weight: 136 62.1 NUTRITION MONITORING/FOLLOW-UP: Reason: PT SEEN FOR FOLLOW-UP/TPN DX: BOWEL OBSTRUCTION Anthropometrics: 6'0", WT: 136# (62 KG), BMI: 18.4 -ADMIT WEIGHT: 135# (61 KG) Labs: GLU: 176, CA+:8.2, ALB: 2.9, AST: 55, ALT: 59, PRE-ALB: 15.9 Meds: TPN, LIPIDS, ZOFRAN, PROTONIX, ZOFRAN, NACL, FUROSEMIDE I&O's: 4505/3157, 1 BM NOTED Skin: OPEN WOUND/SKIN TEAR (R) KNEE; (R) 2ND/4TH TOES AMPUTATED (PREVIOUSLY NOTED) Estimated Nutrition Needs: [phone] KCAL 74-93 G PRO Assessment: CHART REVIEWED AND EVENTS NOTED. PT SEEN FOR TPN FOLLOW-UP. PT SITTING IN CHAIR AT BEDSIDE RECEIVING TPN 25% DEXTROSE, 5% AA @ 65 ML/HR + 20% 250 ML LIPIDS q 48 HOURS. PT ALSO ON FULL LIQUID DIET. PT REPORTS TOLERATING DIET THIS AM FOR BREAKFAST, NO C/O N/V/D BUT C/O CONSTIPATION. THIS RD ENCOURAGED SLOW GRADUAL PO INTAKE + SUPPLEMENTS, PT AGREED TO ENSURE SHAKES TID W/MEALS,RD TO ORDER. PT REPORTED NO DIET QUESTIONS AT THIS TIME. RD TO CONTINUE TO FOLLOW. Dx: INADEQUATE PROTEIN-ENERGY INTAKE R/T CLINICAL DIAGNOSIS AEB NPO, NEED FOR TPN.-AEB RESOLVED. NEW DX: INADEQUATE PROTEIN-ENERGY INTAKE R/T CLINICAL DIAGNOSIS, PMH AEB PT RECEIVING TPN. Intervention: 1. TPN 2. FULL LIQUID DIET 3. ENSURE ENLIVE SHAKES TID Monitoring, Evaluation and Goals: 1. TPN CONSISTENT W/ESTIMATED NUTRIENT NEEDS-ACTIVE 2. GRADUAL WEIGHT GAIN TOWARDS HEALTHY BMI-ACTIVE 3. GI FUNCTION TO WNL-ACTIVE/NOT MET 4. PROMOTE WOUND HEALING-IN PROGRESS 5. LABS WNL-ACTIVE MONITOR: -TPN RATE/TOLERANCE [facility] Nutrition Therapy DATE: 11/22/16 Patient: BRUCE CHAVEZ Physician: CARLYLE Address: [address] [place] [address] Room/Bed: [address] [place] [address], Zip: [place] [address] Admit Date: 11/18/16 Date of : 43 Height: 6 0 Weight: 136 62.1 -WEIGHTS -PO INTAKE/APPETITE -SUPPLEMENT INTAKE Recommendations: 1. PLEASE ORDER STRAWBERRY ENSURE ENLIVE SHAKES TID W/MEALS 2. ENCOURAGE SLOW GRADUAL PO INTAKE-ADVANCE DIET TOLERATED TO GI SOFT 3. RECOMMEND TO CONTINUE CURRENT STANDARD TPN 25% DEXTROSE, 5% AA @ 65 ML/HR + 20% 250 ML LIPIDS q 48 HOURS IF PT CONSUMES >50% OF MEALS, RECOMMEND TO WEAN TPN PER PT TOLERANCE 4. CONTINUE TO CLOSELY MONITOR LYTES, GLUCOSE AND TRIGLYCERIDES 5. PLEASE CONTINUE TO WEIGH q 3 DAYS FOR MONITORING PURPOSES, PT IS UNDERWEIGHT 6. BOWEL REGIMEN PER MD RD WILL F/U PER PROTOCOL PT IS MOD/SEVERELY COMPROMISED Respectfully, KENYETTA LOTT MS, RD, LD Food and Nutritional Services [facility] cc: client file
--- NOTE | ~2016-11-18 | CR72 ---
[facility] A Service of [facility] & [facility] RADIOLOGY TEXT RESULTS PATIENT: BRUCE CHAVEZ LOCATION: [facility] 568-01 : 43 UNIT #: [id number] AGE: [address]: Rosendo Rebolledo MD SEX: M ORDER DR: [id number] [facility] [address] [place], [place] [address] [id number] I MR#: [id number] Acc #: [id number] NAME: BRUCE CHAVEZ : 1945 SEX: M STUDY DATE/TIME: 11/18/2016 00:55 UNIT: [facility] ROOM: [facility] STUDY DESCRIPTION: CR Chest Single View Portable Attending Physician: Rosendo Rebolledo M.D. Ordering Physician: Manoj Saini M.D. Primary Care Physician: No Primary Care Physician MEDICAL IMAGING REPORT This report is preliminary unless electronic signature is present EXAM Portable chest, 11/18 at 00:55 INDICATIONS Chest pain and mental status changes today. FINDINGS AP portable chest is compared with 10/04/2016. Cardiomegaly is stable. There is atherosclerotic disease in the aorta. The lungs are clear. No pneumothorax. Old post-traumatic changes noted in the right shoulder. IMPRESSION Stable cardiomegaly. No active disease. Dictated by... Rosendo Velazco Jr., M.D. THIS IS AN ELECTRONICALLY VERIFIED REPORT Rosendo Velazco Jr., M.D. at 11/18/2016 9:23 PM GIO/oscar TD: 11/18/2016 17:58 JOB #: [id number] MEDICAL IMAGING REPORT Page 1 of 1 COPY
[~2016-11-18 00:32] MED LIST changes: +CEFTRIAXONE2 GM IV; +PERCOCET10
[2016-11-18 01:32] LABS: BASOPHIL% 0.6 % (0-2.5); EOSINOPHIL# 0.1 X10e3 (0-0.7); EOSINOPHIL% 1.4 % (0.0-7.0); HEMATOCRIT 45.1 % (38.0-50.0); HEMOGLOBIN 14.2 gm/dL (13.0-16.0); LYMPHOCYTE# 1.9 X10e3 (1.0-3.5); LYMPHOCYTE% 23.9 % (17.0-45.0); MEAN CELL VOLUME 93.6 FL (83-96); MEAN CORPUSCULAR HEMOGLOBIN 29.4 PG (28-34); MEAN CORPUSCULAR HGB CONC 31.4 g/dL (30-36); MEAN PLATELET VOLUME 9.1 FL (6.5-11.5); MONOCYTE# 0.2 X10e3 (0-1.0); MONOCYTE% 2.1 % (3.0-12.0); NEUTROPHIL# 5.8 X10e3 (1.5-7.1); PLATELET COUNT 274 X10e3 (140-420); RED BLOOD COUNT 4.82 X10e (3.90-5.60); RED CELL DISTRIBUTION WIDTH 16.8 % (11.0-15.5)
[2016-11-18 01:33] LABS: DIFF IND NO
[2016-11-18 01:44] LABS: INR 1.5; PROTHROMBIN TIME (PATIENT) 16.1 SECONDS (9.6-11.5)
[2016-11-18 02:03] LABS: ALBUMIN SERUM 3.8 g/dL (3.5-5.0); ALKALINE PHOSPHATASE 74 U/L (32-92); ALT (SGPT) 14 U/L (10-40); AMYLASE 21 U/L (0-46); AST (SGOT) 21 U/L (10-42); BILIRUBIN, DIRECT 0.2 mg/dL (0.0-0.2); BILIRUBIN,INDIRECT 0.8 mg/dL (0.0-0.9); BLOOD UREA NITROGEN 19 mg/dL (9-23); BUN/CREATININE RATIO 14.61; CALCIUM SERUM 8.7 mg/dL (8.4-10.2); CARBON DIOXIDE 22 mmol/L (22-31); CHLORIDE 103 mmol/L (100-111); CREATININE SERUM 1.3 mg/dL (0.6-1.4); GLOM FILT RATE Estimated 62.8 mL/min (>60); GLUCOSE FASTING 152 mg/dL (70-110); POTASSIUM 3.3 mmol/L (3.5-5.1); PROTEIN TOTAL SERUM 7.7 g/dL (6.0-8.3); SODIUM 135 mmol/L (135-145)
[2016-11-18 02:04] LABS: LIPASE <10 U/L (22-51)
[2016-11-18 04:55] LABS: URINE SOURCE CLEAN CATCH
[2016-11-18 04:59] LABS: URINE APPEARANCE CLEAR; URINE BLOOD NEG (NEG); URINE COLOR DK YELLOW; URINE GLUCOSE NEG (NEG); URINE KETONE TRACE (NEG); URINE LEUKOCYTE ESTERASE TRACE (NEG); URINE NITRATE NEG (NEG); URINE PROTEIN 1+ (NEG); URINE SPECIFIC GRAVITY 1.028 (1.003-1.035)
[2016-11-18 05:00] LABS: URBCS1 AUWI 0-2 /[HPF] (0-2); URINE BACTERIA AUWI NEG (NEGATIVE); URINE SQUAMOUS EPITHELIAL CELL OCC /[HPF]
[2016-11-18 05:05] LABS: URINE BILIRUBIN NEG (NEG)
[2016-11-18 05:06] LABS: CULTURE INDICATED? NO
[2016-11-18 05:08] LABS: URINE MUCUS PRESENT
[2016-11-18] MEDS ORDERED: NORVASC PO (08:40)
[2016-11-18] MEDS ORDERED: PATIENT'S PHARMACY (08:40)
[2016-11-18] MEDS ORDERED: PROTONIX PO (08:40)
[2016-11-18] MEDS ORDERED: ACETAMINOPHEN PO (08:41)
[2016-11-18] MEDS ORDERED: COUMADIN3 MG PO (08:41)
[2016-11-18] MEDS ORDERED: IMDUR-ER60 M1 PO (08:41)
[2016-11-18] MEDS ORDERED: METOPROLOL TAR25 MG PO (08:43)
[2016-11-18] MEDS ORDERED: LIPITOR PO (08:48)
[2016-11-18] MEDS ORDERED: AMIODARONE HCL200 MG PO (08:49)
[2016-11-18] MEDS ORDERED: PERCOCET10 PO (08:49)
[2016-11-19 06:22] LABS: BASOPHIL% 0.4 % (0-2.5); EOSINOPHIL# 0.1 X10e3 (0-0.7); EOSINOPHIL% 0.8 % (0.0-7.0); HEMATOCRIT 33.9 % (38.0-50.0); LYMPHOCYTE# 2.4 X10e3 (1.0-3.5); LYMPHOCYTE% 26.2 % (17.0-45.0); MEAN CORPUSCULAR HEMOGLOBIN 29.3 PG (28-34); MEAN CORPUSCULAR HGB CONC 31.8 g/dL (30-36); MEAN PLATELET VOLUME 9.3 FL (6.5-11.5); MONOCYTE# 1.3 X10e3 (0-1.0); NEUTROPHIL# 5.5 X10e3 (1.5-7.1); NEUTROPHIL% 58.6 % (40-75); PLATELET COUNT 211 X10e3 (140-420); RED BLOOD COUNT 3.69 X10e (3.90-5.60); RED CELL DISTRIBUTION WIDTH 17.1 % (11.0-15.5); WHITE BLOOD COUNT 9.3 X10e3 (4.0-10.5)
[2016-11-19 06:51] LABS: BUN/CREATININE RATIO 23.33; CALCIUM SERUM 8.5 mg/dL (8.4-10.2); CREATININE SERUM 1.2 mg/dL (0.6-1.4); GLOM FILT RATE Estimated 69.1 mL/min (>60); MAGNESIUM 1.4 mg/dL (1.6-3.0); POTASSIUM 3.8 mmol/L (3.5-5.1)
[2016-11-19 06:57] LABS: HEMOGLOBIN 10.8 gm/dL (13.0-16.0)
[2016-11-19 06:58] LABS: DIFF IND NO
[2016-11-20 07:00] LABS: MEAN CELL VOLUME 92.5 FL (83-96); MEAN CORPUSCULAR HEMOGLOBIN 29.9 PG (28-34); MEAN CORPUSCULAR HGB CONC 32.3 g/dL (30-36); MEAN PLATELET VOLUME 9.8 FL (6.5-11.5); RED BLOOD COUNT 3.35 X10e (3.90-5.60); WHITE BLOOD COUNT 7.9 X10e3 (4.0-10.5)
[2016-11-20 07:05] LABS: INR 1.2; PROTHROMBIN TIME (PATIENT) 12.6 SECONDS (9.6-11.5)
[2016-11-20 07:46] LABS: ALBUMIN SERUM 2.9 g/dL (3.5-5.0); BUN/CREATININE RATIO 19.09; CALCIUM SERUM 8.5 mg/dL (8.4-10.2); CREATININE SERUM 1.1 mg/dL (0.6-1.4); GLOM FILT RATE Estimated 76.8 mL/min (>60); MAGNESIUM 1.9 mg/dL (1.6-3.0); POTASSIUM 4.5 mmol/L (3.5-5.1); PROTEIN TOTAL SERUM 6.3 g/dL (6.0-8.3)
[2016-11-21 07:49] LABS: HEMATOCRIT 31.2 % (38.0-50.0); HEMOGLOBIN 9.9 gm/dL (13.0-16.0); MEAN CELL VOLUME 93.8 FL (83-96); MEAN CORPUSCULAR HEMOGLOBIN 29.8 PG (28-34); MEAN CORPUSCULAR HGB CONC 31.7 g/dL (30-36); MEAN PLATELET VOLUME 9.3 FL (6.5-11.5); RED BLOOD COUNT 3.33 X10e (3.90-5.60); RED CELL DISTRIBUTION WIDTH 16.7 % (11.0-15.5); WHITE BLOOD COUNT 7.2 X10e3 (4.0-10.5)
[2016-11-21 08:52] LABS: BUN/CREATININE RATIO 13.75; CALCIUM SERUM 8.5 mg/dL (8.4-10.2); CREATININE SERUM 0.8 mg/dL (0.6-1.4); GLOM FILT RATE Estimated 102.8 mL/min (>60); MAGNESIUM 1.6 mg/dL (1.6-3.0); PHOSPHOROUS 2.4 mg/dL (2.5-4.6); POTASSIUM 4.8 mmol/L (3.5-5.1)
[2016-11-22 05:24] LABS: HEMATOCRIT 28.2 % (38.0-50.0); MEAN CORPUSCULAR HEMOGLOBIN 29.8 PG (28-34); MEAN CORPUSCULAR HGB CONC 32.1 g/dL (30-36); MEAN PLATELET VOLUME 9.3 FL (6.5-11.5); RED BLOOD COUNT 3.03 X10e (3.90-5.60); RED CELL DISTRIBUTION WIDTH 16.9 % (11.0-15.5); WHITE BLOOD COUNT 5.1 X10e3 (4.0-10.5)
[2016-11-22 06:58] LABS: BUN/CREATININE RATIO 12.5; CALCIUM SERUM 8.2 mg/dL (8.4-10.2); CREATININE SERUM 0.8 mg/dL (0.6-1.4); GLOM FILT RATE Estimated 102.8 mL/min (>60); PHOSPHOROUS 2.5 mg/dL (2.5-4.6); POTASSIUM 4.3 mmol/L (3.5-5.1)
[2016-11-23 06:01] LABS: HEMATOCRIT 29.1 % (38.0-50.0); HEMOGLOBIN 9.5 gm/dL (13.0-16.0); MEAN CELL VOLUME 92.2 FL (83-96); MEAN CORPUSCULAR HEMOGLOBIN 30.2 PG (28-34); MEAN CORPUSCULAR HGB CONC 32.8 g/dL (30-36); MEAN PLATELET VOLUME 9.7 FL (6.5-11.5); RED BLOOD COUNT 3.16 X10e (3.90-5.60); RED CELL DISTRIBUTION WIDTH 16.6 % (11.0-15.5); WHITE BLOOD COUNT 4.6 X10e3 (4.0-10.5)
[2016-11-23 07:23] LABS: ALBUMIN SERUM 2.8 g/dL (3.5-5.0); BILIRUBIN,TOTAL 0.4 mg/dL (0.2-2.0); BUN/CREATININE RATIO 17.5; CALCIUM SERUM 8.3 mg/dL (8.4-10.2); CREATININE SERUM 0.8 mg/dL (0.6-1.4); GLOM FILT RATE Estimated 102.8 mL/min (>60); MAGNESIUM 1.5 mg/dL (1.6-3.0); PHOSPHOROUS 1.9 mg/dL (2.5-4.6); POTASSIUM 3.1 mmol/L (3.5-5.1); PROTEIN TOTAL SERUM 5.7 g/dL (6.0-8.3)
[2016-11-23 22:55] LABS: INR 1.2; PROTHROMBIN TIME (PATIENT) 12.2 SECONDS (9.6-11.5)
[2016-11-24 06:39] LABS: INR 1.2; PROTHROMBIN TIME (PATIENT) 13.2 SECONDS (9.6-11.5)
[2016-11-24 12:31] LABS: BILIRUBIN,TOTAL 0.6 mg/dL (0.2-2.0); BUN/CREATININE RATIO 26.25; CALCIUM SERUM 8.5 mg/dL (8.4-10.2); CREATININE SERUM 0.8 mg/dL (0.6-1.4); GLOM FILT RATE Estimated 102.8 mL/min (>60); MAGNESIUM 1.7 mg/dL (1.6-3.0); POTASSIUM 3.5 mmol/L (3.5-5.1); PROTEIN TOTAL SERUM 6.2 g/dL (6.0-8.3)
[2016-11-24 12:59] LABS: HEMATOCRIT 31.3 % (38.0-50.0); HEMOGLOBIN 10.2 gm/dL (13.0-16.0); MEAN CORPUSCULAR HEMOGLOBIN 30.1 PG (28-34); MEAN CORPUSCULAR HGB CONC 32.7 g/dL (30-36); MEAN PLATELET VOLUME 9.9 FL (6.5-11.5); RED BLOOD COUNT 3.4 X10e (3.90-5.60); RED CELL DISTRIBUTION WIDTH 16.7 % (11.0-15.5); WHITE BLOOD COUNT 11.2 X10e3 (4.0-10.5)
[2016-11-25 06:22] LABS: HEMATOCRIT 28.1 % (38.0-50.0); MEAN CELL VOLUME 92.6 FL (83-96); MEAN CORPUSCULAR HEMOGLOBIN 29.6 PG (28-34); MEAN PLATELET VOLUME 9.4 FL (6.5-11.5); RED BLOOD COUNT 3.03 X10e (3.90-5.60); RED CELL DISTRIBUTION WIDTH 17.1 % (11.0-15.5); WHITE BLOOD COUNT 10.4 X10e3 (4.0-10.5)
[2016-11-25 06:50] LABS: ALBUMIN SERUM 2.7 g/dL (3.5-5.0); BILIRUBIN,TOTAL 0.6 mg/dL (0.2-2.0); BUN/CREATININE RATIO 24.44; CREATININE SERUM 0.9 mg/dL (0.6-1.4); GLOM FILT RATE Estimated 97.9 mL/min (>60); MAGNESIUM 1.5 mg/dL (1.6-3.0); PROTEIN TOTAL SERUM 5.6 g/dL (6.0-8.3)
[2016-11-25 06:52] LABS: POTASSIUM 2.8 mmol/L (3.5-5.1)
[2016-11-25 16:46] LABS: INR 1.3; PROTHROMBIN TIME (PATIENT) 13.4 SECONDS (9.6-11.5)
[2016-11-26 08:27] LABS: CALCIUM SERUM 8.3 mg/dL (8.4-10.2); GLOM FILT RATE Estimated 86.2 mL/min (>60); MAGNESIUM 1.9 mg/dL (1.6-3.0); POTASSIUM 3.6 mmol/L (3.5-5.1)
[2016-11-26] MEDS ORDERED: LIPITOR40 MG PO (15:44)
[2016-11-26] MEDS ORDERED: K-DUR20 ME1 PO (15:44)
[2016-11-26] MEDS ORDERED: MAG-OX 400400 M1 PO (15:45)
[2016-11-26] MEDS ORDERED: LASIX20 MG PO (15:46)
[2016-11-26] MEDS ORDERED: PREDNISONE PO (17:28)
[2016-11-26] MEDS ORDERED: APRISO0.375 GM PO (17:30)
== END 2016-11-26 20:10 | DRG 386 ==
LOC: CED 00:32 → C5C 04:40 → CEDOF 04:40 → CED 04:57 → C5C 15:50 → CEDOF 15:50 → C5C 15:50
PROVIDERS: Emergency Medicine; Internal Medicine; Internal Medicine Cardiovascular Disease; Nurse Practitioner; Specialist; Surgery
PROC: 02HV33Z Insertion of Infusion Device into Superior Vena Cava, Percutaneous Approach (ICD-10-PCS; principal; 2016-11-18)
PROC: B548ZZA Ultrasonography of Superior Vena Cava, Guidance (ICD-10-PCS; 2016-11-18)
PROC: 02HV33Z Insertion of Infusion Device into Superior Vena Cava, Percutaneous Approach (ICD-10-PCS; 2016-11-18)
DX: K50.012 Crohn's disease of small intestine with intestinal obstruction (principal); I50.22 Chronic systolic (congestive) heart failure; E44.0 Moderate protein-calorie malnutrition; I48.92 Unspecified atrial flutter; I11.0 Hypertensive heart disease with heart failure; J44.9 Chronic obstructive pulmonary disease, unspecified; I48.0 Paroxysmal atrial fibrillation; E87.6 Hypokalemia; Z68.1 Body mass index [BMI] 19.9 or less, adult; I25.2 Old myocardial infarction; F17.210 Nicotine dependence, cigarettes, uncomplicated; I73.9 Peripheral vascular disease, unspecified; I35.1 Nonrheumatic aortic (valve) insufficiency; I25.10 Atherosclerotic heart disease of native coronary artery without angina pectoris; Z79.01 Long term (current) use of anticoagulants; D64.9 Anemia, unspecified; Z89.421 Acquired absence of other right toe(s); Z82.49 Family history of ischemic heart disease and other diseases of the circulatory system
CPT/HCPCS: 36415; 71010; 71020; 74020; 74176; 74250; 80048; 80053; 80076; 81003; 82150; 82947; 83690; 83735; 83880; 84100; 84132; 84134; 84478; 85025; 85027; 85610; 86140; 93005; 94640; 94760; 96361; 96374; 96375; 97110; 97116; 97163; 97530; 99291; C9113; G8978-GP; G8979-GP; J0610; J1170; J1450; J1650; J1720; J1815; J1940; J2270; J2405; J2543; J2765; J2997; J3475